=== PATIENT | female | born 1990 | race Caucasian/White ===

== ENCOUNTER 2020-02-25 13:45 | Emergency (ER) | payer OTHER, SELFPAY ==
--- NOTE | 2020-02-25 15:31 | ED.WOUNDLAC ---
HPI - Wound/Laceration General Time Seen by Provider: 02/25/20 14:30 Source: patient and RN notes reviewed Mode of arrival: ambulatory Limitations: no limitations History of Present Illness HPI narrative: This is a 30 years old female presented office for evaluation of possible foreign body in her right foot about a month ago. Stated she may have stepped on a broken glass at home however she did not have pain immediately until about 2 weeks ago. She noticed a tender spot, concern for possible glass so her an attempt to remove it at home, which was unsuccessful. Pain becomes more constant and worse with walking. Describes her pain as sore with burning sensation. Denies any other associated symptoms which include fever, abdominal pain, vomiting, swelling or redness in her foot. She is not diabetic. TD is up-to-date as of 09/2019. Related Data Allergies Allergy/AdvReac Type Severity Reaction Status Date / Time Penicillins Allergy Unknown CLOSES Verified 09/03/17 12:19 THROAT Review of Systems Review of Systems: Narrative: ROS: CONSTITUTIONAL: Denies feeling ill CARDIOVASCULAR: Denies chest pain RESPIRATORY: Denies dyspnea GASTROINTESTINAL: Denies abdominal pain, nausea, vomiting SKIN: Denies redness MUSCULOSKELETAL: Reports right foot pain NEUROLOGIC: Denies numbness, or focal weakness. PMFSH Social History Social History (Updated 02/25/20 @ 15:32 by CHAVA Mederos) Smoking status: Current every day smoker Comments At time of signature, I agree with nursing past medical, surgical, social and family history. There is no relevant family history pertinent to the presenting complaint. Exam Narrative: Exam Narrative: GENERAL: This is a well-nourished, well-developed patient, in no apparent distress. CARDIOVASCULAR: Regular rate and rhythm without murmurs, gallops, or rubs. RESPIRATORY: Clear to auscultation. Breath sounds equal bilaterally. No wheezes, rales, or rhonchi. GASTROINTESTINAL: Abdomen soft, non-tender, nondistended. Bowel sounds are active. No hepato-splenomegaly, or palpable masses. No guarding. NEURO: awake, alert, and oriented to person, place and time. There were no obvious focal neurologic abnormalities. EXTREMITIES: right plantar aspect of foot, first metatarsal noted a tender callus without erythema, edematous. Procedures Foreign Body Removal Foreign Body #1: Foreign Body Removal Date: 02/25/20 Time Out Performed: no Site: right and lower extremity Description of foreign body: other (glass) Sedation/Analgesia: none Technique: removal with forceps, incision made to facilitate removal, irrigation and other (soak her foot with peroxide and warm water) Confirmed by:: direct visualization Complications: none Post-procedure exam: awake, alert Neurovascular: normal distal pulse Foreign Body Removal Narrative: Patient reports feeling better post removal MDM - Wound/Laceration MDM Narrative Medical decision making narrative: Discharge instructions reviewed with patient, as well as provided in writing per nursing staff. The instructions also include specific and strict return/GO TO THE ER as well as f/u information. All questions have been answered, and the patient deny any further questions with discharge and discharge plan. Differential Diagnosis Differential diagnosis: Likely laceration, abscess, abrasion and avulsion of skin Critical Care Time Critical Care Time Critical Care Time: No Discharge Plan Discharge Clinical Impression: Foreign body (FB) in soft tissue Patient Disposition: Home, Self-Care Condition: Stable Instructions: Acute Wounds (ED) Additional Instructions: Keep affected area clean and dry, avoid covering it up to promote faster healing; however if you do put dressing/bandage; make sure to remove it frequently to avoid infection. Little sore on affected area post procedure is n
--- NOTE | 2020-02-25 15:44 | PC.NURSE ---
02/25/2020 1544 See Downtime Documentation. Jazzmine Sparrow RN
== END 2020-02-25 15:55 | disposition home or self-care (01) ==
PROVIDERS: Emergency Provider Nurse Practitioner
DX: S90.851A Superficial foreign body, right foot, initial encounter (principal); F17.200 Nicotine dependence, unspecified, uncomplicated; W25.XXXA Contact with sharp glass, initial encounter
CPT/HCPCS: 10120; 99213; G0463

== ENCOUNTER 2021-07-07 09:18 | Emergency (ER) | payer OTHER, SELFPAY ==
[2021-07-07 09:22] VITALS: BP 133/65; PULSE 106; RESP 18; TEMP 37.3; O2SAT 100
--- NOTE | 2021-07-07 09:55 | ED.URI ---
HPI - URI/Sore Throat General Chief Complaint: Upper Respiratory Infection Stated Complaint: sore throat ear aches headache Time Seen by Provider: 07/07/21 09:36 Source: patient and RN notes reviewed Mode of arrival: ambulatory Limitations: no limitations History of Present Illness HPI Narrative: Patient presents today complaining of left ear pain, headache x3 days with sore throat that started yesterday afternoon. Currently rates her pain 4/10 and has been taking Tylenol with mild relief. She has 2 children at home that are positive for strep throat and are taking amoxicillin. MD elicited complaint: sore throat Related Data Home Medications Medication Instructions Recorded Confirmed norethindrone ac-eth estradiol 1 tablet PO DAILY 07/07/21 07/07/21 Allergies Allergy/AdvReac Type Severity Reaction Status Date / Time Penicillins Allergy Severe Anaphylactic Verified 07/07/21 09:35 Shock Review of Systems Review of Systems: CONSTITUTIONAL: Denies body aches, fever, chills, or sweats. EYES: Denies visual changes, redness, or discharge. ENT: Denies rhinorrhea, congestion.+ Left ear pain, sore throat CARDIOVASCULAR: Denies chest pain, palpitations, or edema. RESPIRATORY: Denies cough or dyspnea. GASTROINTESTINAL: Denies abdominal pain, nausea, vomiting, or diarrhea. GENITOURINARY: Denies dysuria or hematuria. SKIN: Denies rash, itching, or wounds. MUSCULOSKELETAL: Denies back pain, joint pain, or myalgia. NEUROLOGIC: Denies numbness, tingling, or weakness.+ Headache PSYCH: Denies depression or anxiety. [facility] Social History Social History Smoking status: Current every day smoker Comments At time of signature, I have reviewed and agree with nursing past medical, surgical, social and family history unless otherwise noted. Please see nursing chart for further information. There is no relevant family history pertinent to the presenting complaint Exam Narrative: GENERAL: Well-appearing, well-nourished, and in no acute distress. HEAD: Normocephalic, atraumatic. EYES: EOMI. No redness or drainage. Conjunctivae normal. ENT: Mucous membranes pink and moist. Nares clear. No rhinorrhea. TMs normal bilaterally. Throat erythematous with mild edema. Uvula midline. NECK: Normal AROM. Supple. No lymphadenopathy. CHEST: No respiratory distress. Clear to auscultation. HEART: Regular rate and rhythm. No murmur appreciated. Normal peripheral pulses. EXTREMITIES: Normal range of motion. No edema. SKIN: Warm, dry, no rash. Capillary refill normal. Normal skin turgor. NEURO: No focal deficits. Alert and oriented x3. Gait steady. PSYCH: Normal affect. No signs of depression or anxiety. Course Vital Signs Vital signs: Vital Signs Temperature 99.1 F 07/07/21 09:22 Pulse Rate 106 H 07/07/21 09:22 Respiratory Rate 18 07/07/21 09:22 Blood Pressure 133/65 07/07/21 09:22 Pulse Oximetry 100 07/07/21 09:22 Temperature 99.1 F 07/07/21 09:22 Pulse Rate 106 H 07/07/21 09:22 Respiratory Rate 18 07/07/21 09:22 Blood Pressure 133/65 07/07/21 09:22 Pulse Oximetry 100 07/07/21 09:22 Reviewed. Pt has been instructed to follow up with her PCP regarding her elevated blood pressure today. MDM - URI/Sore Throat Differential Diagnosis Differential diagnosis: Likely upper respiratory infection, otitis media, pharyngitis and other (Strep throat) Lab Data Attestation: I reviewed the patient's lab results. Labs: Strep Screen Presumptive Negative *(Reference Range: Negative)* Critical Care Time Critical Care Time Critical Care Time: No Discharge Plan Discharge Clinical Impression: Pharyngitis Qualifiers: Pharyngitis/tonsillitis etiology: unspecified etiology Qualified Code(s): J02.9 - Acute pharyngitis, unspecified Patient Disposition: Home, Self-Care Condition: Stable
== END 2021-07-07 10:00 | disposition home or self-care (01) ==
PROVIDERS: Emergency Provider Nurse Practitioner
DX: J02.9 Acute pharyngitis, unspecified (principal); F17.200 Nicotine dependence, unspecified, uncomplicated
CPT/HCPCS: 87081; 87880; 99213; G0463

== ENCOUNTER 2022-01-12 08:51 | Emergency (ER) | payer OTHER, SELFPAY ==
--- NOTE | 2022-01-12 08:56 | ED.URI ---
HPI - URI/Sore Throat General Chief Complaint: Upper Respiratory Infection Stated Complaint: aches all over Time Seen by Provider: 01/12/22 08:56 Source: patient and RN notes reviewed History of Present Illness HPI Narrative: Patient is a 31-year-old female who presents the urgent care with complaints of bilateral ear pain that started today and body aches with subjective fever and chills that started last night. Patient denies of any ill contacts. Denies of sore throat, cough. Patient has been taking Tylenol cold and flu medication, for her symptoms. No other acute complaints. No acute distress noted. Patient aware of the plan of care. Some parts of this dictation were generated by voice recognition software and may contain typographical and/or grammatical inaccuracies. Related Data Home Medications Medication Instructions Recorded Confirmed norethindrone ac-eth estradiol 1 tablet PO DAILY 07/07/21 07/07/21 Allergies Allergy/AdvReac Type Severity Reaction Status Date / Time Penicillins Allergy Severe Anaphylactic Verified 07/07/21 09:35 Shock Review of Systems Review of Systems: CONSTITUTIONAL: Reports of subjective fever and chills EYES: Denies visual changes, redness, or discharge. ENT: Denies rhinorrhea, congestion. Reports of scratchy throat and bilateral otalgia CARDIOVASCULAR: Denies chest pain, palpitations, or edema. RESPIRATORY: Denies cough or dyspnea. GASTROINTESTINAL: Denies abdominal pain, nausea, vomiting, or diarrhea. GENITOURINARY: Denies dysuria or hematuria. SKIN: Denies rash or itching. MUSCULOSKELETAL: Denies back pain, joint pain. Reports body aches NEUROLOGIC: Denies headache, numbness, or weakness. All other systems reviewed are negative, except as documented in HPI. PMFSH Social History Social History Smoking status: Current every day smoker Comments At the time of my signature, I reviewed and agree with the nursing past medical, surgical, social, and family history. There is no relevant family history pertinent to the patient complaint. Exam Narrative: GENERAL: This is a well-nourished, well-developed patient, in no apparent distress. HEAD: normocephalic, atraumatic. EYES: PERRL. Sclera clear/white. Vision is grossly intact. EARS: External ears normal, auditory canals clear and without drainage, TMs normal without perforation. Hearing grossly intact. NOSE: External nose normal with no obvious nasal discharge, nares without redness, clear to yellow rhinorrhea. THROAT: Mucous membranes moist, mild erythema noted posterior oropharynx with moderate postnasal drainage NECK: Neck supple, non-tender without lymphadenopathy CARDIOVASCULAR: Regular rate and rhythm without murmurs, gallops, or rubs. RESPIRATORY: Clear to auscultation. Breath sounds equal bilaterally. No wheezes, rales, or rhonchi. SKIN: warm, intact with no suspicious lesions or rash, good texture and turgor. NEURO: awake, alert, and oriented to person, place and time. There were no obvious focal neurologic abnormalities. EXTREMITIES: No clubbing, cyanosis, or edema. Course Course Level of Care: Express Care Visit Vital Signs Vital signs: Vital Signs Temperature 99.7 F H 01/12/22 08:58 Pulse Rate 112 H 01/12/22 08:58 Respiratory Rate 18 01/12/22 08:58 Blood Pressure 120/66 01/12/22 08:58 Pulse Oximetry 98 01/12/22 08:58 Temperature 99.7 F H 01/12/22 08:58 Pulse Rate 112 H 01/12/22 08:58 Respiratory Rate 18 01/12/22 08:58 Blood Pressure 120/66 01/12/22 08:58 Pulse Oximetry 98 01/12/22 08:58 Reviewed MDM - URI/Sore Throat MDM Narrative Medical decision making narrative: Reviewed lab results with the patient. She is aware that flu swab was negative. Strep swab was also negative. Educated patient on culture we will call within 72 hours if culture is positive and antibiotics are necessary. Advised the patient to use Tyleno
[2022-01-12 08:58] VITALS: BP 120/66; PULSE 112; RESP 18; TEMP 37.6; O2SAT 98
== END 2022-01-12 09:37 | disposition home or self-care (01) ==
PROVIDERS: Emergency Provider Nurse Practitioner Family
DX: H92.03 Otalgia, bilateral (principal); B34.9 Viral infection, unspecified; F17.200 Nicotine dependence, unspecified, uncomplicated
CPT/HCPCS: 87081; 87804; 87880; 99213; G0463

== ENCOUNTER 2023-04-24 12:38 | Outpatient (CLI) | payer OTHER, SELFPAY ==
[2023-04-24 13:51] LABS: Beta HCG Quantitative < 2.39 mIU/ML
== END 2023-04-24 12:39 | disposition home or self-care (01) ==
PROVIDERS: Visit Provider Advanced Practice Midwife
DX: N91.2 Amenorrhea, unspecified (principal)
CPT/HCPCS: 36415; 84702

== ENCOUNTER 2023-08-28 18:03 | Emergency (ER) | payer OTHER, SELFPAY ==
--- NOTE | ~2023-08-28 | XR_ITS ---
EXAMINATION: XR finger 4th LT min 2V DATE: 08/28/2023 18:26 INDICATION: Left hand fourth digit injury and pain. TECHNIQUE: 4 views of left hand fourth digit were obtained. COMPARISON: None. FINDINGS: Bone alignment is normal. No fracture. Joint spaces are normal. IMPRESSION: 1. No fracture. Reviewed, dictated and finalized at location E. [employer] IMPRESSION: 1. No fracture.
[2023-08-28 18:15] VITALS: BP 110/74; PULSE 100; RESP 18; TEMP 36.6; O2SAT 99
--- NOTE | 2023-08-28 18:36 | ED.UPPEXIN ---
HPI - Extremity Injury (Upper) General Chief Complaint: Extremity Injury, Upper Stated Complaint: Left Finger Injury Time Seen by Provider: 08/28/23 18:25 Source: patient, RN notes reviewed and old records reviewed Mode of arrival: ambulatory Limitations: no limitations History of Present Illness HPI narrative: 33-year-old female who presents to [facility] with complaints of injury to her left ring finger on her left hand which occurred after lifting popcorn machine 2 hours ago at home. Patient reports that she was moving the popcorn machine and it started to fall and she is not sure if it caused her left ring finger to twist or hyperextend. Patient report that her whole finger is sore and increases when she tries to move her finger. Patient has taken Ibuprofen and used ice to her left ring finger. MD complaint: injury to: left and finger (ring finger) Onset (ago): hour(s) (2 hours) Handedness: right Place: home Severity scale (1-10): 8 Treatments prior to arrival: cold therapy and NSAIDS Related Data Home Medications Medication Instructions Recorded Confirmed norethindrone 1 mg-ethinyl See Rx Instructions .Route .COMPLEX 08/28/23 08/28/23 estradiol 20 mcg (24)-iron 75 mg (4) tablet (Ria 24 Fe) sertraline 25 mg tablet 25 mg PO DAILY 08/28/23 08/28/23 Allergies Allergy/AdvReac Type Severity Reaction Status Date / Time Penicillins Allergy Severe Anaphylactic Verified 08/28/23 18:32 Shock Review of Systems Review of Systems: CONSTITUTIONAL: Denies fever, chills, or sweats. EYES: Denies visual changes, redness, or discharge. ENT: Denies rhinorrhea, congestion, sore throat, or otalgia. CARDIOVASCULAR: Denies chest pain, palpitations, or edema. RESPIRATORY: Denies cough or dyspnea. GASTROINTESTINAL: Denies abdominal pain, nausea, vomiting, or diarrhea. GENITOURINARY: Denies dysuria or hematuria. SKIN: Denies rash or itching. MUSCULOSKELETAL: Denies back pain, positive for pain to left ring finger, or myalgia. NEUROLOGIC: Denies headache, numbness, or weakness. PSYCHIATRIC: Denies anxiety or depression. All systems reviewed & are unremarkable except as noted in HPI and below PMFSH Past Medical History Medical History (Updated 08/30/23 @ 20:22 by Anita Chandler NP) Depression Surgical History Surgical History (Updated 08/30/23 @ 20:18 by Anita Chandler NP) History of cholecystectomy Social History Social History Smoking status: Current every day smoker Comments At time of signature, agree with nursing past medical, surgical, social and family history. There is no relevant family history pertinent to the presenting complaint Exam Narrative: GENERAL: Well-appearing, well-nourished, and in no acute distress. HEAD: Normocephalic, atraumatic. EYES: PERRLA and EOMI. ENT: Nares clear, no rhinorrhea or epistaxis. Mucous membranes moist. NECK: Supple. no lymphadenopathy CHEST: Clear to auscultation. No respiratory distress.SAO2 99% on room air HEART: Regular rate and rhythm. No murmur heard. Normal peripheral pulses. ABDOMEN: Soft, nontender, nondistended, normal active bowel sounds. EXTREMITIES: Normal range of motion. No edema.Exception noted to left ring finger which has some noted swelling and patient states some tingling, she is able to move finger on own power, nail bed has brisk capillary refill, left radial pulse strong. SKIN: Warm, dry, no rash. NEURO: No focal deficits. Alert and oriented x3. patient Course Course Emergency Course: Patient is aware of diagnosis, understands and agrees to treatment plan.? Anticipatory guidance given.? Patient agrees to follow-up as directed and is aware of reasons to seek care at the emergency department. Portions of this record may have been created with voice recognition software Level of Care: Express Care Visit Vital Signs Vital signs: Vital Signs Temperature 36.6 C
== END 2023-08-28 18:50 | disposition home or self-care (01) ==
PROVIDERS: Emergency Provider Registered Nurse
DX: S60.042A Contusion of left ring finger without damage to nail, initial encounter (principal); X58.XXXA Exposure to other specified factors, initial encounter; F32.A Depression, unspecified
CPT/HCPCS: 73140; 99213; G0463

== ENCOUNTER 2025-02-18 08:18 | Emergency (ER) | payer OTHER, SELFPAY ==
--- NOTE | ~2025-02-18 | XR_ITS ---
EXAMINATION: XR finger 2nd LT min 2V DATE: 02/18/2025 08:59 INDICATION: Left finger pain post injury 2 days prior TECHNIQUE: Dorsal palmar, lateral and 2 oblique views of the left second digit were obtained COMPARISON: None FINDINGS: Alignment is normal. No fracture. Joint spaces are normal. Soft tissues are unremarkable. IMPRESSION: 1. Negative left second digit radiographs. Reviewed, dictated and finalized at location B.
--- OUTSIDE RECORDS SUMMARY | 2025-02-18 08:22 | XMS_ITS | Clinical Summary ---
Author Organization [facility] Address [address] [place] [address] Care Team Providers Care Home Staging Specialist Name Role Phone Tati Henry NP Primary Care Provider [phone] Allergies Active Allergy Reactions Criticality Noted Date Comments Penicillins Anaphylaxis High 02/22/2019 Valacyclovir Rash Medium 11/06/2023 Medications busPIRone (BUSPAR) 10 mg tabletIndications: Generalized Anxiety Disorder Take 1 tablet (10 mg total) by mouth 3 (three) times a day as needed (anxiety) 4 Active fluticasone propionate (FLONASE) 50 mcg/actuation nasal sprayIndications:E nvironmental and seasonal allergies Administer 2 sprays into each nostril daily as needed for allergies 1 each 2 4 Active Aurovela 24 Fe 1 mg-20 mcg (24)/75 mg (4) per tabletIndications: cyst ovary Take 1 tablet by mouth nightly 4 Active ergocalciferol (VITAMIN D) 50,000 unit capsuleIndications :Vitamin D deficiency Take 1 capsule (50,000 Units total) by mouth once a week 12 capsule 4 4 025 Active sertraline (ZOLOFT) 25 mg tabletIndications: depression Take 1 tablet (25 mg total) by mouth nightly 90 tablet 1 4 025 Active albuterol HFA (PROVENTIL HFA,VENTOLIN HFA,PROAIR HFA) 90 mcg/actuation inhalerIndications :Bronchitis,Lower respiratory infection Inhale 2 puffs every 6 (six) hours as needed for wheezing for up to 7 days 1 each 5 Active rOPINIRole (REQUIP) 0.5 mg tabletIndications: Restless Legs Syndrome Take 1 tablet (0.5 mg total) by mouth nightly as needed (foot pain at night) 90 tablet [address] (CYMBALTA) 60 mg capsuleIndications :Neuropathy Take 1 capsule (60 mg total) by mouth daily 90 capsule 4 5 026 Active tiZANidine (ZANAFLEX) 4 mg tablet TAKE 1 TABLET(4 MG) BY MOUTH EVERY 8 HOURS NEEDED FOR MUSCLE SPASMS 30 tablet 3 5 Active pregabalin (LYRICA) 50 mg capsuleIndications :Neuropathy Take 1 capsule (50 mg total) by mouth 3 (three) times a day 270 capsule 4 5 025 Active meloxicam (MOBIC) 15 mg tabletIndications: Osteoarthritis Take 1 tablet (15 mg total) by mouth daily 30 tablet 5 Active ondansetron ODT (ZOFRAN-ODT) 4 mg disintegrating tabletIndications: Viral syndrome Take 1 tablet (4 mg total) by mouth every 8 (eight) hours as needed for nausea or vomiting 9 tablet 5 Active Hospital, Clinic, or Other Facility Administered Medication Ordered Dose Route Frequency Start Date End Date Status ondansetron ODT (ZOFRAN-ODT) disintegrating tablet 4 mgIndications:Viral syndrome 4 mg oral Once 01/21/2025 01/21/2025 Ended Active Problems Problem Noted Date Diagnosed Date Cervical radiculopathy 01/28/2025 Diabetes mellitus screening 12/15/2024 Assessment & Plan (12/15/2024 1:19 PM TRAVELING PLANT OPERATOR): A1C ordered due to excessive thrist, fatigue, and potential neuropathy in feet. Will continue to monitor. Fatigue 12/15/2024 Assessment & Plan (12/15/2024 1:23 PM TRAVELING PLANT OPERATOR): Vitamin B 12 and D along with Iron profile ordered as well. Will continue to monitor. Screening for lipid disorders 12/15/2024 Assessment & Plan (12/15/2024 1:20 PM TRAVELING PLANT OPERATOR): Lipid panel ordered. Will continue to monitor. Bilateral leg and foot pain 12/15/2024 Assessment & Plan (12/15/2024 1:23 PM TRAVELING PLANT OPERATOR): Will trial Requip and Medrol dose pack. Differentials include diabetes with neuropathy, polyneuropathy, plantar fasciitis, or other causes of lower leg and feet swelling. Vitamin D deficiency 12/15/2024 Assessment & Plan (12/15/2024 1:23 PM TRAVELING PLANT OPERATOR): Feel supplement not working anymore still having fatigue. Will check levels. Class 1 obesity due to exces s calories without serious comorbidity with body mass index (BMI) of 30.0 to 30.9 in adult 12/15/2024 Assessment & Plan (12/15/2024 1:23 PM TRAVELING PLANT OPERATOR): Encouraged heart healthy diet and lifestyle. Advised 150 min/week of aerobic exercise. Cervical spondylosis without myelopathy 11/04/19 Encounter for physical examination related to em ployment 08/31/2024 Influenza vaccine needed 08/31/2024 Spondylosis of cervical jesús on without myelopathy or radiculopathy 08/03/2024 Injury of neck 06/03/2024 Assessment & Plan (06/03/2024 3:12 PM CDT): Son jumped on head 7 days ago; 2 days ago turned to get cup off table and felt/heard pop . 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 Post herpetic neuralgia 02/17/2024 Assessment & Plan (02/17/2024 3:23 PM CDT): Stable, well controlled Gabapentin 100 mg TID Cigarette nicotine dependence without complicati on 02/17/2024 Assessment & Plan (02/17/2024 3:23 PM CDT): Restart Nicotine patches Was successful for 4 days Cubital tunnel syndrome on right 01/22/2024 Right carpal tunnel syndrome 01/22/2024 Guyon syndrome, right 01/22/2024 Sensorineural hearing loss (SNHL) of both ears 0 12/18/2023 Assessment & Plan (12/18/2023 11:41 AM TRAVELING PLANT OPERATOR): Hearing test Continue to work with Dentist Nasal saline spray (Simply saline, [place], [place], [place]) 2 second sprays or 2 squeezes into each nostril while looking down over the sink, do not need to sniff in 2-3 times Flonase 2 sprays into each nostril while looking down over the sink, do not sniff in or blow nose after use for at least 30 minutes daily Referred otalgia of both ears 12/18/2023 Assessment & Plan (12/18/2023 11:41 AM TRAVELING PLANT OPERATOR): Hearing test Continue to work with Dentist Nasal saline spray (Simply saline, [place], [place], [place]) 2 second sprays or 2 squeezes into each nostril while looking down over the sink, do not need to sniff in 2-3 times Flonase 2 sprays into each nostril while looking down over the sink, do not sniff in or blow nose after use for at least 30 minutes daily Hair loss 11/06/2023 Assessment & Plan (11/06/2023 9:23 AM TRAVELING PLANT OPERATOR): Check TSH Numbness and tingling of both upper extremities 11/06/2023 Assessment & Plan (11/20/2023 5:14 PM TRAVELING PLANT OPERATOR): Not well controlled, continues to have numbness, worse in right arm; mostly occurs at elbow, ulnar distribution; including middle finger Waiting to get EMG for source of symptoms Assessment & Plan (11/06/2023 9:23 AM TRAVELING PLANT OPERATOR): Had EMG in December 2022; has not gotten results yet States pain has worsened Repeat EMG ordered Inflammation of left eye 10/22/2023 Assessment & Plan (10/31/2023 11:00 AM TRAVELING PLANT OPERATOR): H/o shingles per chart with likely V2 involvement, rash resolved after about 1 week of valacyclovir, but patient developed rashes on her trunk so discontinued due to concern for allergy. Patient was also started on prednisolone tid OS for mild AC reaction. Today no inflammation or sequelae of HZO on exam. Patient is still symptomatic for eye and facial pain as well as subjectively decreased vision OS. Diagnostic refraction corrects to 20/40 OS and OCT macula was normal today- unclear etiology for decreased vision but no concerns from an ocular health perspective. Patient's symptoms could represent post herpetic neuralgia. Will send note to PCP, may consider gabapentin trial or other treatment options. Otherwise decrease prednisolone to bid x 1 week, qd x 1 week, then stop. Can follow up locally for continued eyecare or can return to our clinic with any new or worsening symptoms. Gastroesophageal reflux disease without esophagi tis 08/27/2023 Irritable bowel syndrome with constipation 08/27 Assessment & Plan (08/27/2023 11:33 AM TRAVELING PLANT OPERATOR): Referral to [facility] placed Chronic bilateral low back pain with bilateral s ciatica 08/27/2023 Assessment & Plan (11/06/2023 9:26 AM TRAVELING PLANT OPERATOR): Increase Meloxicam 15 mg daily Not getting relief with PT Assessment & Plan (09/25/2023 11:12 AM TRAVELING PLANT OPERATOR): Continued back pain; started PT yesterday Start Meloxicam 7.5 mg daily and Skelaxin 400 mg BID PRN Assessment & Plan (08/27/2023 11:33 AM TRAVELING PLANT OPERATOR): Patient states she had a previous back injury; states she believes her toddler through her back out recently. She was seen in beginning of July and was prescribed steroids and Flexeril. She states that the pain is still there and it causes sciatica X-ray ordered; discussed potential need for MRI and/or neurosurgery consult Cervical spine pain 08/27/2023 Assessment & Plan (11/20/2023 5:13 PM TRAVELING PLANT OPERATOR): Continues to have spine and thoracic back pain; thoracic back pain may be pustule; patient given home exercises to help improve posture Continue meloxicam 15 mg daily, gabapentin 100 mg t.i.d.; transition from Skelaxin to methocarbamol 500 mg q.i.d. p.r.n. Assessment & Plan (08/27/2023 11:32 AM TRAVELING PLANT OPERATOR): Patient states she is had a history of cervical spine pain that causes numbness X-ray ordered; discussed potential need for MRI and/or neurosurgery consult Bowel and bladder incontinence 08/27/2023 Assessment & Plan (08/27/2023 11:30 AM TRAVELING PLANT OPERATOR): Patient states due to her history of anal fissure she has been having bowel incontinence. She also has a history of IBS-C Referral to [facility] gastrointestinal clinic Anxiety and depression 08/27/2023 Assessment & Plan (02/17/2024 3:22 PM CDT): Chronic, stable, well controlled Continue Sertraline 25 mg daily and BuSpar 10 mg TID PRN Assessment & Plan (11/06/2023 9:27 AM TRAVELING PLANT OPERATOR): Stable, generally well controlled Continue Zoloft 25 mg daily Increase BuSpar 10 mg TID PRN Follow up 2 months Assessment & Plan (09/25/2023 11:13 AM TRAVELING PLANT OPERATOR): Stable; depression well controlled, increased anxiety Continue Zoloft 25 mg daily; add BuSpar 5 mg TID PRN Follow up 4 weeks Assessment & Plan (08/27/2023 11:29 AM TRAVELING PLANT OPERATOR): Patient states she is had a history of anxiety and depression since she was a child. She states that it got worse after her children. Restart Zoloft 25 mg daily Follow up 1 month, sooner if needed Internal hemorrhoid 11/14/2022 Anal fissure 10/25/2022 Resolved Problems Problem Noted Date Diagnosed Date Resolved Date RUQ pain 11/14/2022 08/27/2023 Overview (11/14/2022): Added automatically from request for surgery [id number] Heartburn 11/14/2022 08/27/2023 Overview (11/14/2022): Added automatically from request for surgery [id number] Weight loss 11/14/2022 08/27/2023 Overview (11/14/2022): Added automatically from request for surgery [id number] Abdominal bloating 11/14/2022 Overview (11/14/2022): Added automatically from request for surgery [id number] Rectal pain 10/25/2022 08/27/2023 Overview (10/25/2022): Added automatically from request for surgery [id number] Rectal bleeding 10/25/2022 08/27/2023 Overview (10/25/2022): Added automatically from request for surgery [id number] Encounters Date Type Department Care Team Description 02/02/2025 Telephone [facility] [address] [place] [employer] [address] Amber Barajas NP 01/28/2025 8:36 AM CDT - 01/28/2025 11:59 PM CDT Hospital Encounter [facility] [address] [facility] [address] [place] [phone] Jimy Pantoja MD Cervical radiculopathy Discharge Disposition: Discharge to home or self care 01/28/2025 Orders Only [facility] [address] [facility] [address] [place] [address] Jimy Pantoja MD Spondylosis of cervical region without myelopathy or radiculopathy (Primary Dx); Cervical spondylosis without myelopathy; Chronic neck pain; Cervical radiculopathy 01/27/2025 Orders Only [facility] [address] [place] [phone] Jimy Pantoja MD Cervical radiculopathy (Primary Dx) 01/26/2025 Telephone [facility] [address] [phone] Tati Henry NP Medical Question/Miscellaneou s 01/25/2025 Telephone [facility] [address] [place] [phone] Jimy Pantoja MD [facility] Preprocedure 01/23/2025 Results Follow-Up [facility] at [address] [place] [address] Meli Stanford NP 01/21/2025 2:54 PM CDT - 01/21/2025 11:59 PM CDT Hospital Encounter [address] [address] Viral syndrome Discharge Disposition: Discharge to home or self care 01/21/2025 2:30 PM CDT Office Visit [facility] [address] [place] [address] Ashely Poole NP Viral syndrome (Primary Dx) 01/14/2025 Results Follow-[facility] [address] [phone] Amber Barajas NP Pain in left foot (Primary Dx); Bilateral leg and foot pain 01/11/2025 12:56 PM CDT - 01/11/2025 11:59 PM CDT Hospital Encounter [facility] [address] [place] [address] Jimy Pantoja MD Cervical radiculopathy (Primary Dx) Discharge Disposition: Discharge to home or self care 01/08/2025 12:36 PM CDT - 01/08/2025 11:59 PM CDT Hospital Encounter [facility] [address] [place] [phone] Pain in left foot Discharge Disposition: Discharge to home or self care 01/08/2025 Results Follow-[facility] [address] [phone] Amber Barajas NP 01/07/2025 12:10 PM CDT Lab [facility] [address] [place] [phone] Multiple joint pain 01/05/2025 5:30 PM CDT Office Visit [facility] Medical [facility] at [address] [phone] Brenda Jones NP Bilateral leg and foot pain (Primary Dx) 12/16/2024 Results Follow-Up [facility] [address] [phone] Amber Barajas NP 12/15/2024 1:30 PM TRAVELING PLANT OPERATOR Lab [address] [phone] Diabetes mellitus screening; Fatigue, unspecified type; Screening for lipid disorders; Vitamin D deficiency 12/15/2024 1:00 PM TRAVELING PLANT OPERATOR Office Visit [facility] [address] [phone] Amber Barajas NP Bilateral leg and foot pain (Primary Dx); Vitamin D deficiency; Fatigue, unspecified type; Diabetes mellitus screening; Screening for lipid disorders; Class 1 obesity due to excess calories without serious comorbidity with body mass index (BMI) of 30.0 to 30.9 in adult 11/25/2024 12:20 PM TRAVELING PLANT OPERATOR - 11/25/2024 11:59 PM TRAVELING PLANT OPERATOR Hospital Encounter [facility] [address] [place] [address], [place] [address] Subacute cough Discharge Disposition: Discharge to home or self care 11/25/2024 Telephone [facility] Medical [facility] at [address] [place] [address] Genesis Salas MA 11/24/2024 6:15 PM TRAVELING PLANT OPERATOR Office Visit [facility] at [address] [place] [address] Brenda Jones, MELANIA Acute serous otitis media of left ear, recurrence not specified (Primary Dx); Subacute cough 11/22/2024 6:45 PM TRAVELING PLANT OPERATOR Office Visit [facility] at [address] [place] [address] Gerda Bean, MELANIA Viral URI with cough (Primary Dx) from Last 3 Months Immunizations Immunization Administration Dates Next Due Influenza, Quadrivalent, Spl it, Preservative Free, Intramuscular 10/10/2019(Deferred: Patient Refused) Influenza, Trivalent, Preser vative Free, Intramuscular 08/31/2024 Influenza, Unspecified 08/28/2024(Deferr ed: Patient Refused),08/05/2024(Deferred: Patient Refused),07/30/2023(Deferred: Patient Refused),07/29/2023(Deferred: Patient Refused),07/21/2023(Deferred: Patient Refused),06/21/2023(Deferred: Patient Refused),07/21/2022(Deferred: Patient Refused) PPD TEST 12/19/2020 Tdap 09/22/2019 Surgical History Surgery Date Site/Laterality Comments CHOLECYSTECTOMY 10/21/2012 - 10/20/2013 [facility] UPPER GASTROINTESTINAL ENDOSCOPY COLONOSCOPY 03/21/2022 - 04/19/2022 at [facility] CARPAL TUNNEL RELEASE 01/27/2024 Right ulnar nerve, guyons canal CARPAL TUNNEL RELEASE Left ULNAR TUNNEL RELEASE Bilateral ANAL FISSURECTOMY Medical History Medical History Date Comments No pertinent past medical history Stones common duct GERD (gastroesophageal reflux disease) 08/04/22 Chronic constipation Irritable bowel syndrome Status post anal fissurectomy Family History Medical History Relation Name Comments No Known Problems Father No Known Problems Mother Relation Name Status Comments Father Alive Mother Alive Social History Tobacco Use Types Packs/Day Years Used Date Smoking Tobacco: Former Cigarettes Smokeless Tobacco: Never Tobacco Cessation:Counseling Given: Not Answered Comments:Smoked half a pack of cigarettes per day from 2009 until 12/14 Passive Exposure Comments:not in 24 hr Alcohol Use Standard Drinks/Week Comments Not Currently 0 (1 standard drink = 0.6 oz pur e alcohol) [facility] Utilities Answer Date Recorded In the past 12 months has th e electric, gas, oil, or water company threatened to shut off services in your home? No 08/27/2023 Humiliation, Afraid, Rape, and Kick questionnair e Answer Date Recorded Within the last year, have y ou been afraid of your partner or ex-partner? No 08/27/2023 Within the last year, have y ou been humiliated or emotionally abused in other ways by your partner or ex-partner? No Within the last year, have y ou been kicked, hit, slapped, or otherwise physically hurt by your partner or ex-partner? No 08/27/2023 Within the last year, have y ou been raped or forced to have any kind of sexual activity by your partner or ex-partner? No 08/27/2023 Social Connection and Isolat ion Panel [NHANES] Answer Date Recorded In a typical week, how many times do you talk on the phone with family, friends, or neighbors? More than three times a week 08/27/2023 How often do you get togethe r with friends or relatives? Once a week 08/27/2023 How often do you attend chur or advent services? Never 08/27/2023 Do you belong to any clubs o r organizations such as mormon groups, unions, fraternal or athletic groups, or school groups? No 08/27/2023 How often do you attend meet ings of the clubs or organizations you belong to? Never 08/27/2023 Are you , , di vorced, , never , or living with a partner? 08/27/2023 AUDIT-C Answer Date Recorded Q1: How often do you have a drink containing alcohol? Never 01/28/2025 Q2: How many drinks containi ng alcohol do you have on a typical day when you are drinking? Patient does not drink Q3: How often do you have si x or more drinks on one occasion? Never 01/28/2025 Overall Financial Resource Strain (CARDIA) Answe r Date Recorded How hard is it for you to pa y for the very basics like food, housing, medical care, and heating? Not hard at all 08/27/2023 PHQ-2 Answer Date Recorded PHQ-2 Total Score (If total score is 3 or more points, staff should administer the PHQ-9) 0 12/15/2024 [facility] - Occupational Stress Questionnaire Answer Date Recorded Do you feel stress - tense, restless, nervous, or anxious, or unable to sleep at night because your mind is troubled all the time - these days? Very much 08/27/2023 Exercise Vital Sign Answer Date Recorde d On average, how many days pe r week do you engage in moderate to strenuous exercise (like a brisk walk)? 7 days 08/27/2023 On average, how many minutes do you engage in exercise at this level? 30 min 08/27/2023 Hunger Vital Sign Answer Date Recorded Within the past 12 months, y ou worried that your food would run out before you got the money to buy more. Never true 09/16/20 24 Within the past 12 months, t he food you bought just didn't last and you didn't have money to get more. Never true 09/16/2024 PRAPARE - Transportation Answer Date Re corded In the past 12 months, has l ack of transportation kept you from medical appointments or from getting medications? No 04/2023 In the past 12 months, has l ack of transportation kept you from meetings, work, or from getting things needed for daily living? No 08/27/2023 Housing Stability Vital Sign Answer Chip e Recorded In the last 12 months, was t here a time when you were not able to pay the mortgage or rent on time? No 08/27/2023 In the last 12 months, how many places have you lived? 1 08/27/2023 In the last 12 months, was t here a time when you did not have a steady place to sleep or slept in a custodial (including now)? No 08/27/2023 Personal Safety Answer Date Recorded Have you ever been in or are you currently in a harmful physical or emotional relationship or is someone making you feel afraid or unsafe? Denies 08/05/2024 Comments No Sex and Gender Information Value Date Recorded Sex Assigned at Not on file Legal Sex Female 8:01 AM TRAVELING PLANT OPERATOR Gender Identity Not on file Sexual Orientation Not on file Obstetrics History Para Term AB IAB SAB Ectopic Multiple Livin g Live Births 2 2 1 1 0 1 1 Date Outcome GA Total Labor Labor/2nd/3rd Weight Sex Type Anes PTL Leisa A1 A5 Name Clin 2012 Term Vag-S pont 2018 36w 6d 3h 37m 3h 14m/0h 19m/0h 04m 2.869 kg (6 lb 5.2 oz) M Vag-S pont Epidur al N Livin g 9 9 [address] GERDA Sosa , Colleen Pulliam MD Complications:None Delivery Location:This [facility] Last Filed Vital Signs Vital Sign Reading Time Taken Comments Blood Pressure 121/72 01/28/2025 10:17 AM CDT Pulse 63 01/28/2025 10:17 AM CDT Temperature 36.5 C (97.7 F) 01/28/2025 8:39 AM CDT Respiratory Rate 16 01/28/2025 10:17 AM CDT Oxygen Saturation 100% 01/28/2025 10:17 AM CDT Inhaled Oxygen Concentration - - Weight 69.6 kg (153 lb 8 oz) 01/28/2025 8:39 AM CDT Height 152.4 cm (5') 01/28/2025 8:39 AM CDT Body Mass Index 29.98 01/28/2025 8:39 AM CDT Plan of Treatment Health Maintenance Due Date Last Done Comments Cervical Cancer Screening 1992 Varicella Vaccines (1 of 2 - 13+ 2-dose series) 2005 Covid-19 Vaccine ( season) 2024 08/10/2021, 07/04/2021 Regular Well Visit/Exam 18-64 08/27/2024 08/27/2023 Depression Screening 12/15/2025 12/15/2024, 08/31/2024, 06/03/2024, Additional history exists DTaP/Tdap/Td Vaccine (2 - Td or Tdap) 09/22/2029 09/22/2019 Hepatitis B Screening Completed 07/13/2024 Hepatitis C Screening Completed 07/13/2024 Influenza Vaccine Completed 08/31/2024 HPV Vaccines Aged Out No longer eligi ble based on patient's age to complete this topic Pneumococcal vaccine <65 Aged Out No longer eligible based on patient's age to complete this topic Goals Goal Patient Goal Type Associated Problems Recent Progress Patient-Stated? Author CCM Chronic Pain Care Plan Chronic Care Management On track(2024 8:49 AM CDT) No Amber Webb RN Note: Problem: Chronic Pain Goals: 1. Minimize further functional decline 2. Maximize quality of life 3. Control pain Strategies: - Activity/exercise program recommendation - Conservative stepwise pain medicine strategy with multi-disciplinary approach - Recommend healthy lifestyle strategies and compensatory methods as needed Procedures Procedure Name Priority Date/Time Associated Diagnosis Comments PAIN MGMT IMAGING CERVICAL/THORACIC EPIDURAL STEROID INJ Schedule Routine, Read Routine (OP Routine) 01/28/2025 10:13 AM CDT Cervical radiculopathy THROAT CULTURE Routine 01/21/2025 5:41 PM CDT Viral syndrome POC INFLUENZA A/B, COVID-19 ANTIGEN Routine 01/21/2025 2:43 PM CDT Viral syndrome POCT RAPID STREP Routine 01/21/2025 2:43 PM CDT Viral syndrome XR FOOT LEFT 3 OR MORE VIEWS Schedule Routine, Read Routine (OP Routine) 01/08/2025 12:48 PM CDT Pain in left foot RHEUMATOID FACTOR Routine 01/07/2025 12:08 PM CDT Multiple joint pain CRP (ACUTE PHASE) Routine 01/07/2025 12:08 PM CDT Multiple joint pain ERYTHROCYTE SEDIMENTATION RATE Routine 01/07/2025 12:08 PM CDT Multiple joint pain XIANG QUALITATIVE WITH REFLEX TO XIANG QUANTITATIVE Routine 01/07/2025 12:08 PM CDT Multiple joint pain EGFR Routine 12/15/2024 1:21 PM TRAVELING PLANT OPERATOR Diabetes mellitus screening IRON PROFILE W/ IBC Routine 12/15/2024 1 :21 PM TRAVELING PLANT OPERATOR Fatigue, unspecified type VITAMIN D 25 HYDROXY Routine 12/15/2024 1:21 PM TRAVELING PLANT OPERATOR Vitamin D deficiency COMPREHENSIVE METABOLIC PANEL Routine 12/15/2024 1:21 PM TRAVELING PLANT OPERATOR Diabetes mellitus screening LIPID PANEL Routine 12/15/2024 1:21 PM TRAVELING PLANT OPERATOR Screening for lipid disorders VITAMIN B12 Routine 12/15/2024 1:21 PM TRAVELING PLANT OPERATOR Fatigue, unspecified type HEMOGLOBIN A1C Routine 12/15/2024 1:21 PM TRAVELING PLANT OPERATOR Diabetes mellitus screening XR CHEST PA LATERAL 2 VIEWS Schedule PARAM, Read PARAM (Appt Today, Awaiting Results) 11/25/2024 12:28 PM TRAVELING PLANT OPERATOR Subacute cough POC INFLUENZA A/B, COVID-19 ANTIGEN Routine 11/22/2024 7:15 PM TRAVELING PLANT OPERATOR Viral URI with cough HEPATITIS C ANTIBODY Routine 07/13/2024 12:21 PM CDT Encounter for hepatitis C screening test for low risk patient from Last 3 Months or Most Recently Relevant to Health Maintenance Results * Imaging Cervical/Thoracic Epidural Steroid INJ ([id number]) (01/28/2025 10:13 AM CDT) Narrative [facility] - 01/28/2025 10:13 AM CDT The images from this study are not interpreted by Radiology. Please refer to the physician's procedure / OR operative note. us Jimy Addison MD IMG PAIN MGMT PROCEDU RES Final Result [facility] * Throat culture Throat (01/21/2025 5:41 PM CDT) Report Final Report: No growth of pathogens. Comment:Testing performed by : [facility], [address] [place]., [address] Throat 01/21/2025 5:41 PM CDT 01/22/2025 6:01 AM CDT Narrative [facility] - 01/23/2025 1:58 PM CDT Testing performed by [facility] ([phone]). Ashely Poole ACCOUNTANT BOOKKEEPER LAB MICROBIOLOGY - GENERAL ORD ERABLES Final Result [facility] [id number] Department [place] [address] * POC Influenza A/B, COVID-19 antigen (01/21/2025 2:43 PM CDT) Pathologist [facility] Influenza A Ag, POC Negative Negative [facility] Influenza B Ag, POC Negative Negative [facility] COVID-19 Ag POC Presumptive Negative Presumptive Negative, Invalid [facility] [place] Nasal 01/21/2025 2:43 PM CDT Ashely Poole ACCOUNTANT BOOKKEEPER POINT OF CARE TEST ORDERABLES Final Result [facility] [address] [place] [address] * POCT rapid strep A (01/21/2025 2:43 PM CDT) Rapid Strep A, POC Negative Negative Swab 01/21/2025 2:43 PM CDT us Ashely Poole ACCOUNTANT BOOKKEEPER POINT OF CARE TEST ORDERABLES Final Result * XR Foot Left 3+ Vw (01/08/2025 12:48 PM CDT) Anatomical Region Laterality Modality Lower Extremities, Foot Left Computed Radiography 01/13/2025 3:43 PM CDT Narrative 01/13/2025 3:46 PM CDT EXAM DESCRIPTION: XR FOOT LEFT 3 OR MORE VIEWS REASON FOR STUDY: Pain in Foot, Left Per pt, left foot nerve problems x 1 month Last night, severe pain shooting in 1st digit. Cannot bear weight on 1st digit No prior fx or surgeries FINDINGS: Three views nonweightbearing submitted without comparison. No acute fracture. Accessory navicular is present. Achilles enthesophyte is present. The joint spaces are normal. IMPRESSION: Normal left foot evaluation. If persistent clinical concern for an occult fracture or soft tissue pathology, further evaluation with MRI may be considered. THIS IS AN ELECTRONICALLY VERIFIED FINAL REPORT 01/13/2025 3:46 PM - Electronically signed by John Miranda M.D. MF: [email or web address] Report ID: [id number] Reading Location: [id number] Procedure Note John Miranda MD - 01/13/2025 EXAM DESCRIPTION: XR FOOT LEFT 3 OR MORE VIEWS REASON FOR STUDY: Pain in Foot, Left Per pt, left foot nerve problems x 1 month Last night, severe painshooting in 1st digit. Cannot bear weight on 1st digit No prior fx or surgeries FINDINGS: Three views nonweightbearing submitted without comparison. No acute fracture. Accessory navicular is present. Achilles enthesophyteis present. The joint spaces are normal. IMPRESSION: Normal left foot evaluation. If persistent clinical concern for anoccult fracture or soft tissue pathology, further evaluation with MRI may be considered. THIS IS AN ELECTRONICALLY VERIFIED FINAL REPORT 01/13/2025 3:46 PM - Electronically signed by John Miranda M.D. MF: [email or web address] Report ID: [id number] Reading Location: [id number] us Amber Barajas NP IMG XR PROCEDURES Final Resul t * XIANG ab ql w/rflx to XIANG qn (01/07/2025 12:08 PM CDT) XIANG Negative Comment: Interpretive Data Normal range for XIANG Qualitative Antibody = Negative. 1. XIANG is performed using indirect immunofluorescence against HEp-2 cells 2. XIANG titers are performed on all positive qualitative results. 3. A significantly positive XIANG result is defined as a positive nuclear fluorescence at a titer of 1:80 or greater. 4. 15% of normal people above age 65 have significantly positive XIANG results. 5% or less of normal people age 65 or under have significantly positive XIANG results. Current interpretive data was last revised on 2020. Testing performed by: [facility], [address] [place] [address]., [id number] Blood 01/07/2025 12:0 8 PM CDT 01/07/2025 7:52 PM CDT Amber Barajas ACCOUNTANT BOOKKEEPER LAB BLOOD ORDERABLES Final Re sult Performing Organization Address City/[facility]/ZIP Co de Phone Number [facility] ([facility] [place]) [address] [place] [address] [place] [address] * Erythrocyte sedimentation rate (01/07/2025 12:08 PM CDT) Pathologist [facility] Erythrocyte sedimentation rate 9 1 - 20 mm/hr Comment:Testing performed by : [facility], [address] [place] [address], [id number] Blood 01/07/2025 12:0 8 PM CDT 01/07/2025 5:42 PM CDT Amber Barajas ACCOUNTANT BOOKKEEPER LAB BLOOD ORDERABLES Final Re sult [facility] ([place] [place]) 1 [facility] [place] [address] * Rheumatoid factor (01/07/2025 12:08 PM CDT) Pathologist [facility] Rheumatoid factor, quant 10 <=15 IUnits/mL Comment:Testing performed by : [address], [id number] Blood 01/07/2025 12:0 8 PM CDT 01/07/2025 5:42 PM CDT Amber Barajas NP LAB BLOOD ORDERABLES Final Re sult [facility] ([place]) 1 [facility] Department [place] [address] * (ABNORMAL) CRP (acute phase) (01/07/2025 12:08 PM CDT) CRP 18.3(H) <=10.0 mg/L Comment:Testing performed by : [facility], [address] [place] [address]., [id number] Blood 01/07/2025 12:0 8 PM CDT 01/07/2025 5:42 PM CDT Amber Barajas NP LAB BLOOD ORDERABLES Final Re sult [facility] ([place] [place]) 1 [facility] [place] [address] * eGFR (12/15/2024 1:21 PM TRAVELING PLANT OPERATOR) eGFR >90 >=60 mL/min/1. 73 m2 Comment: Interpretive Data Reference Interval Normal >/= 90 mL/min/1.73m2 Mildly decreased* 60 - 89 mL/min/1.73m2 Mildly to moderately decreased 45 - 59 mL/min/1.73m2 Moderately to severely decreased 30 - 44 mL/min/1.73m2 Severely decreased 15 - 29 mL/min/1.73m2 Kidney Failure < 15 mL/min/1.73m2 *Relative to young adult level Estimated glomerular filtration rate is determined by the 2020 CKD-EPI equation recommended by the National Kidney Foundation (A Unifying Approach to GFR Estimation: Recommendations of the NKF-ASK Task Force on Reassessing the Inclusion of Race in Diagnosing Kidney Disease, JASN 2020). The CKD-EPI equation should not be used for patients with unstable renal function and has not been validated in children and those over 70. Current interpretive data was last reviewed 2021. Testing performed by: [facility], [address] [place] [address], [id number] Blood 12/15/2024 1:21 PM TRAVELING PLANT OPERATOR 12/15/2024 7:32 PM TRAVELING PLANT OPERATOR Amber Barajas ACCOUNTANT BOOKKEEPER LAB BLOOD ORDERABLES Final Re sult Performing Organization Address City/[facility]/ZIP Co de Phone Number BEK[facility] ([facility] [place]) 1 [facility] Department [place] [address] * (ABNORMAL) Iron profile w/ IBC (12/15/2024 1:21 PM TRAVELING PLANT OPERATOR) Pathologist [facility] Iron 55 35 - 145 mcg/dl Comment:Testing performed by : [facility], [address] [place] [address], [address] TIBC 326 250 - 400 mcg/dL BEKAH RUBIO ([place]) Comment:Testing performed by : [facility], [address] [place] [address], [address] Transferrin saturation 17(L) 20 - 50 % [facility] ([place]) Comment:Testing performed by : [facility], [address] [place] [address], [id number] Blood 12/15/2024 1:21 PM TRAVELING PLANT OPERATOR 12/15/2024 6:51 PM TRAVELING PLANT OPERATOR Amber Barajas NP LAB BLOOD ORDERABLES Final Re sult Performing Organization Address City/[facility]/ZIP Co de Phone Number [facility] ([facility]) 1 [facility] [place] [address] * Vitamin D 25 hydroxy (12/15/2024 1:21 PM TRAVELING PLANT OPERATOR) Vitamin D 25-OH 45 30 - 80 ng/mL Comment:Testing performed by : [address], [address] Blood 12/15/2024 1:21 PM TRAVELING PLANT OPERATOR 12/15/2024 6:51 PM TRAVELING PLANT OPERATOR Amber Barajas NP LAB BLOOD ORDERABLES Final Re sult [facility] RUBIO ([facility]) [address] [place] [address] * Hemoglobin A1c (12/15/2024 1:21 PM TRAVELING PLANT OPERATOR) Pathologist [facility] Hgb A1C 5.5 4.0 - 5.6 % Comment:Testing performed by : [address] [address] Estimated Average Glucose 111 mg/dL [facility] ([facility] [place]) Comment: The ADA recommends reporting an estimated Average Glucose (eAG) with all Hemoglobin A1c results using the equation derived from a study of 507 normal and diabetic adults. Minority populations were underrepresented and children were not included. (Diabetes Care 31:6401-5943, 2008). The eAG is not equivalent to a fasting glucose. Testing performed by: [address], [address] Blood 12/15/2024 1:21 PM TRAVELING PLANT OPERATOR 12/15/2024 6:51 PM TRAVELING PLANT OPERATOR Result [facility] Amber Barajas NP LAB BLOOD ORDERABLES Final Re sult Performing Organization Address [facility] Co de Phone Number BEKAH RUBIO ([facility]) [address] [place] [address] * Vitamin B12 (12/15/2024 1:21 PM TRAVELING PLANT OPERATOR) [facility] Vitamin B12 235 230 - 1,250 pg/mL Comment:Testing performed by : [address] [address] Blood 12/15/2024 1:21 PM TRAVELING PLANT OPERATOR 12/15/2024 6:51 PM TRAVELING PLANT OPERATOR Amber Barajas NP LAB BLOOD ORDERABLES Final Re sult [facility] RUBIO ([facility]) [address] [place] [address] * (ABNORMAL) Lipid panel (12/15/2024 1:21 PM TRAVELING PLANT OPERATOR) Cholesterol 205(H) 30 - 199 mg/dL Comment: Interpretive Data Ages < or = 19 years Acceptable: <170 mg/dL Borderline high: 170-199 mg/dL High: >or= 200 mg/dL Ages > or = 20 years Desirable: <200 mg/dL Borderline high: 200-239 mg/dL High: >or= 240 mg/dL Literature References: 1. Expert Panel on Integrated Guidelines for Cardiovascular Health and Risk Reduction in Children and Adolescents. Pediatrics 2011;128:S213 2. NCEP Expert Panel. Circulation 2004;110:227 Current Interpretive Data was last revised on 2018. Testing performed by: [address] [address] Triglycerides 106 <=149 mg/dL [facility] RUBIO ([place]) Comment: Interpretive Data Ages < or = 9 years Acceptable: <75 mg/dL Borderline high: 75-99 mg/dL High: >or= 100 mg/dL Ages 10 to 20 years Acceptable: <90 mg/dL Borderline high: 90-129 mg/dL High: >or= 130 mg/dL Ages > or = 20 years Desirable: <150 mg/dL Borderline high: 150-199 mg/dL High: 200-499 mg/dL Very high: >or= 499 mg/dL Literature References: 1. Expert Panel on Integrated Guidelines for Cardiovascular Health and Risk Reduction in Children and Adolescents. Pediatrics 2011;128:S213 2. NCEP Expert Panel. Circulation 2003;110:227 Current Interpretive Data was last revised on 2018. Testing performed by: [facility], [address] [place] [address]., [address] HDL 49 >=40 mg/dL [facility] ([place]) Comment: Interpretive Data Ages < or = 19 years Acceptable: >45 mg/dL Borderline low: 40-45 mg/dL Low: <40 mg/dL Ages > or = 20 years Desirable: >or= 60 mg/dL Low: <40 mg/dL Literature References: 1. Expert Panel on Integrated Guidelines for Cardiovascular Health and Risk Reduction in Children and Adolescents. Pediatrics 2011;128:S213 2. NCEP Expert Panel. Circulation 2004;110:227 Current Interpretive Data was last revised on 2018. Testing performed by: [facility], [address] [place] [address]., [address] LDL, calculated 137(H) <=129 mg/dL [facility] RUBIO ([place]) Comment: Interpretive Data Ages < or = 19 years Acceptable: <110 mg/dL Borderline high: 110-129 mg/dL High: >or= 130 mg/dL Ages > or = 20 years Optimal: <100 mg/dL Near optimal: 100-129 mg/dL Borderline high: 130-159 mg/dL High: >160 mg/dL Calculated using the Quoc LDL-C estimating equation. This equation was implemented on 2024. Prior to this date LDL-C was estimated using the Friedewald equation. Literature References: 1. Expert Panel on Integrated Guidelines for Cardiovascular Health and Risk Reduction in Children and Adolescents. Pediatrics 2011;128:S213 2. NCEP Expert Panel. Circulation 2004;110:227 3. Quoc Win et al. EDE Cardiol. 2019February 18;5(5):540-548. doi: 10.1001/jamacardio.2020.0013 Current Interpretive Data was last revised on 2024. Testing performed by: [facility], [address] [place] [address]., [address] Non-HDL Cholesterol 156 mg/dL BE[facility] RUBIO ([place]) Comment: Interpretive Data Ages < or = 19 years Acceptable: <120 mg/dL Borderline high: 120-144 mg/dL High: >145 mg/dL Ages > or = 20 years When triglycerides are >200 mg/dL, Non-HDL cholesterol is a secondary target of therapy with treatment goals that are 30 mg/dL greater than the LDL cholesterol target. Literature References: 1. Expert Panel on Integrated Guidelines for Cardiovascular Health and Risk Reduction in Children and Adolescents. Pediatrics 2011;128:S213 2. NCEP Expert Panel. Circulation 2004;110:227 Current Interpretive Data was last revised on 2018. Testing performed by: [facility], [address] [place] [address]., [address] Chol/HDL ratio 4 STACY RUBIO ([place]) Comment:Testing performed by : [facility], [address] [place] [address]., [address] Blood 12/15/2024 1:21 PM TRAVELING PLANT OPERATOR 12/15/2024 6:51 PM TRAVELING PLANT OPERATOR us Amber Barajas NP LAB BLOOD ORDERABLES Final Re sult [facility] RAMIRO ([place]) 1 [facility] Department [place] [address] * (ABNORMAL) Comprehensive metabolic panel (12/15/2024 1:21 PM TRAVELING PLANT OPERATOR) Sodium 139 135 - 145 mmol/L Comment:Testing performed by : [facility], [address] [place] [address]., [address] Potassium, pl 3.7 3.3 - 4.9 mmol/L [facility] ([place]) Comment:Testing performed by : [facility], [address] [place] [address]., [address] Chloride 101 97 - 110 mmol/L [facility] ([place]) Comment:Testing performed by : [facility], [address] [place] [address]., [address] CO2 21(L) 22 - 32 mmol/L [facility] ([place]) Comment:Testing performed by : [facility], [address] [place] [address]., [address] Anion gap 17(H) 2 - 15 mmol/L [facility] ([place]) Comment:Testing performed by : [facility], [address] [place] [address]., [address] BUN 7 6 - 25 mg/dL [facility] ([place]) Comment:Testing performed by : [address] [address] Creatinine 0.74 0.60 - 1.10 mg/dL [facility] ([place]) Comment:Testing performed by : [address] [address] Glucose 132 70 - 199 mg/dL [facility] ([place]) Comment: Interpretive Data Fasting glucose >/= 126 mg/dl is diagnostic for diabetes. Fasting is defined as no caloric intake for at least 8 hours. Fasting glucose between 100 mg/dl to 125 mg/dl is diagnostic of prediabetes. In a patient with classic symptoms of hyperglycemia or hyperglycemic crisis, a random glucose >/= 200 mg/dl is diagnostic for diabetes. In the absence of unequivocal hyperglycemia, results should be confirmed by repeat testing. The classification and Diagnosis of Diabetes Diabetes Care 202; 46: S19-S40. Current interpretive data was last revised 2022. Testing performed by: [facility], [address] [place] [address]., [address] Calcium 9.2 8.5 - 10.3 mg/dL [facility] ([place]) Comment:Testing performed by : [address], [address] Bilirubin, total 0.2 0.1 - 1.2 mg/dL [facility] ([place]) Comment:Testing performed by : [facility], [address] [place] [address], [address] Protein, pl 7.5 6.5 - 8.5 g/dL [facility] ([place]) Comment:Testing performed by : [address], [address] Albumin 4.1 3.5 - 5.0 g/dL [facility] ([place]) Comment:Testing performed by : [facility], [address] [place] [address], [address] Alk phos 62 40 - 130 Units/L [facility] ([place]) Comment:Testing performed by : [address], [address] ALT 13 7 - 45 Units/L [facility] ([place]) Comment:Testing performed by : [address], [address] AST 27 10 - 45 Units/L [facility] ([place]) Comment:Testing performed by : [address], [address] Blood 12/15/2024 1:21 PM TRAVELING PLANT OPERATOR 12/15/2024 6:51 PM TRAVELING PLANT OPERATOR us Amber Barajas NP LAB BLOOD ORDERABLES Final Re sult [facility] ([place]) 1 [facility] Department [place] [address] * XR Chest Pa Lateral 2 Views (11/25/2024 12:28 PM TRAVELING PLANT OPERATOR) Anatomical Region Laterality Modality Body, Chest N/A Computed Radiogr aphy 11/25/2024 1:47 PM TRAVELING PLANT OPERATOR Narrative 11/25/2024 1:47 PM TRAVELING PLANT OPERATOR EXAM DESCRIPTION: XR CHEST PA LATERAL 2 VIEWS REASON FOR STUDY: cough x1 month, sob, pain when taking deep breath. rule out pneumonia. Sob, cough, congestion x 1 month - states symptoms have worsened x 3 days Smoker No surgeries TECHNIQUE: There are 2 radiographic view(s) of the chest. COMPARISON: Old CT 02/28/2022 FINDINGS: LUNGS: Pulmonary vasculature is normal. No infiltrate or effusion. HEART/MEDIASTINUM: Cardiac silhouette normal in size. Mediastinal and hilar contours appear normal. LINES/TUBES: None. BONES: No acute osseous abnormality. IMPRESSION: No acute cardiopulmonary abnormality. No infiltrate. THIS IS AN ELECTRONICALLY VERIFIED FINAL REPORT 11/25/2024 1:47 PM - Electronically signed by John VILLAGOMEZ: DAHLIA Report ID: [id number] Reading Location: [place] [address] Procedure Note John Cantu MD - 11/25/2024 EXAM DESCRIPTION: XR CHEST PA LATERAL 2 VIEWS REASON FOR STUDY: cough x1 month, sob, pain when taking deep breath. ruleout pneumonia. Sob, cough, congestion x 1 month - states symptoms have worsened x 3 days Smoker No surgeries TECHNIQUE: There are 2 radiographic view(s) of the chest. COMPARISON: Old CT 02/28/2022 FINDINGS: LUNGS: Pulmonary vasculature is normal. No infiltrate or effusion. HEART/MEDIASTINUM: Cardiac silhouette normal in size. Mediastinal andhilar contours appear normal. LINES/TUBES: None. BONES: No acute osseous abnormality. IMPRESSION: No acute cardiopulmonary abnormality. No infiltrate. THIS IS AN ELECTRONICALLY VERIFIED FINAL REPORT 11/25/2024 1:47 PM - Electronically signed by John VILLAGOMEZ: DAHLIA Report ID: [id number] Reading Location: [place] [address] Brenda Jones ACCOUNTANT BOOKKEEPER IMG XR PROCEDURES Final Result * POC Influenza A/B, COVID-19 antigen (11/22/2024 7:15 PM TRAVELING PLANT OPERATOR) Pathologist [facility] Influenza A Ag, POC Negative Negative [facility] Influenza B Ag, POC Negative Negative [facility] COVID-19 Ag POC Presumptive Negative Presumptive Negative, Invalid [facility] Nasal 11/22/2024 7:15 PM TRAVELING PLANT OPERATOR Gerda Bean NP POINT OF CARE TEST ORDER LOKESH Final Result Performing Organization Address City/[facility] Co de Phone Number [facility] [address] [place] [address] * Hepatitis C antibody Blood (07/13/2024 12:21 PM CDT) Pathologist [facility] Hep C Ab Nonreactive Nonreactive Comment: Interpretive Data Nonreactive: Antibodies to HCV not detected. Does NOT exclude the possibility of recent exposure to HCV. Equivocal: Equivocal for HCV antibodies. Supplemental molecular testing will be automatically performed to determine infection status in accordance with current CDC screening recommendations. Reactive: Positive for HCV antibodies. This may represent current or past HCV infection. Supplemental molecular testing will be automatically performed to determine current infection status in accordance with current CDC screening recommendations. Interpretive data was last revised on 2020. Testing performed by: [facility], [address] [place] [address]., [id number] Blood 07/13/2024 12:2 1 PM CDT 07/13/2024 5:06 PM CDT Tati Henry NP LAB MICROBIOLOGY - GENERAL ORDER LOKESH Final Result [facility] ([facility] [place]) 1 [facility] Department [place] [address] from Last 3 Months or Most Recently Relevant to Health Maintenance Insurance [facility] H[facility]/PPO Address: [place] [address] [facility] H[facility]/PPO Address: [place] [address] [facility] H[facility]/PPO Address: [address] [address] [place] [address] Advance Directives For more information, please contact: [phone] * Full Code (Latest Code Status on File) Date Activated Date Inactivated Comments 12/11/2022 11:31 AM 12/11/2022 7:02 PM * Full Code Date Activated Date Inactivated Comments 12/11/2022 11:31 AM 12/11/2022 11:31 AM * Full Code Date Activated Date Inactivated Comments 10/29/2022 11:30 AM 10/29/2022 6:26 PM * Full Code Date Activated Date Inactivated Comments 10/29/2022 11:30 AM 10/29/2022 11:30 AM * Full Code Date Activated Date Inactivated Comments 10/03/2021 12:15 PM 10/03/2021 7:26 PM Care Teams Home Staging Specialist Relationship Specialty Start Date End Date Tati Henry NP PCP - General Family Medicine 08/27/23
--- OUTSIDE RECORDS SUMMARY | 2025-02-18 08:22 | XMS_ITS | Clinical Summary ---
Author Organization [facility] Address [address] [facility], [address] [address] Phone Care Team Providers Care Billposter Name Role Phone Edwar Encinas MD Unavailable Alcides lAves MD Unavailable [phone] Tati Henry TABLEAU LEAD, [employer]AR[employer] Primary Care Provide r Allergies Active Allergy Reactions Criticality Noted Date Comments Penicillins Anaphylaxis High 04/27/2009 As a kid Valacyclovir Hcl Rash 01/11/2025 Medications traMADol (ULTRAM) 50 MG TabletIndicatio ns:Right lower quadrant abdominal pain Take 1 Tablet by mouth every 6 hours as needed for Severe pain. 12 Tablet 4 Active cyclobenzaprine (FLEXERIL) 10 MG Tablet TAKE 1/2 TO 1 TABLET BY MOUTH EVERY 8 HOURS NEEDED FOR BACK PAIN Active ketorolac (TORADOL) 10 MG Tablet Take 1 Tablet by mouth every 6 hours as needed for Moderate or more severe pain. 20 Tablet 4 Active naloxone HCl (Narcan) 4 MG/0.1ML Liquid 1 Estill by Nasal route as needed for Opioid Reversal. Administer in one nostril for symptoms of overdose (severe sleepiness, breathing problems, not responsive). Call 911. May repeat 1 spray in alternate nostril in 2-3 minutes if needed. 2 Each 4 Active albuterol 108 (90 Base) MCG/ACT Aerosol Solution take 2 Puffs by inhalation every 4 hours as needed. Active Norethindrone Acet-Ethinyl Est (Aurovela 11/09) 1-20 MG-MCG Tablet Take 1 Tablet by mouth daily. Active busPIRone (BUSPAR) 10 MG Tablet Take 10 mg by mouth 3 times daily. Active ergocalciferol (VITAMIN D) 66836 UNIT Capsule Take 50,000 Units by mouth. Active FLUTICASONE PROPIONATE, NASAL, NA by Nasal route. Acti ve sertraline (ZOLOFT) 25 MG Tablet Take 25 mg by mouth daily. Active tiZANidine HCl 4 MG Capsule Take 4 mg by mouth 3 times daily. Active rOPINIRole (REQUIP) 0.5 MG Tablet Take 0.5 mg by mouth 3 times daily. Active lubiprostone (Amitiza) 24 MCG Capsule Take by mouth 2 times daily (with meals). Active nortriptyline (PAMELOR) 25 MG Capsule Take 25 mg by mouth nightly. Active Active Problems No known active problems Family History Medical History Relation Name Comments No Known Problems Daughter No Known Problems Father No Known Problems Half-Sister 1 Anny No Known Problems Half-Sister 2 Amber No Known Problems Maternal Grandfather No Known Problems Maternal Grandmother Breast Cancer Mother Cancer Mother Liver Cancer Mother No Known Problems Paternal Grandfather No Known Problems Sister No Known Problems Son Relation Name Status Comments Daughter Alive Father Alive Half-Sister 1 Anny Alive Half-Sister 2 Amber Alive Maternal Grandfather Maternal Grandmother Alive Mother Alive Paternal Grandfather Sister Alive Son Alive Social History Tobacco Use Types Packs/Day Years Used Date Smoking Tobacco: Every Day Cigarettes 1 17.1 Started: 11/2006; Last attempted to quit: 12/13/2023 Smokeless Tobacco: Never Tobacco Cessation:Ready to Q uit: Not Asked; Counseling Given: Not Answered Alcohol Use Standard Drinks/Week Comments Never 0 (1 standard drink = 0.6 oz pur e alcohol) Sexually Active Control Partners Comments Yes Male Comments No Sex and Gender Information Value Date Recorded Sex Assigned at Not on file 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 Gender Identity Not on file Sexual Orientation Not on file Last Filed Vital Signs Vital Sign Reading Time Taken Comments Blood Pressure 110/69 06/03/2024 3:45 PM CDT Pulse 62 06/03/2024 3:45 PM CDT Temperature 36.2 C (97.2 F) 06/03/2024 3:05 PM CDT Respiratory Rate 12 06/03/2024 3:45 PM CDT Oxygen Saturation 100% 06/03/2024 3:45 PM CDT Inhaled Oxygen Concentration - - Weight 67.6 kg (149 lb) 06/03/2024 3:05 PM CDT Height 177.8 cm (5' 10 ) 06/03/2024 3:05 PM CDT Body Mass Index 21.38 06/03/2024 3:05 PM CDT Plan of Treatment Health Maintenance Due Date Last Done Comments Hepatitis C Virus (HCV) Screening 1992 Hepatitis B Immunization (1 of 3 - 19+ 3-dose series) 2011 Pneumococcal Immunization Combined (1 of 2 - PCV) 2011 Pap Smear 2013 Cervical Cancer Screening (CCS) 2022 HPV/Cotest 2022 Influenza Immunization (#1) 2024 SARS-COV-2 Immunization ( season) 2024 08/10/2021, 07/04/2021 Respiratory Syncytial Virus (RSV) Immunization (Adult) (1 - 1-dose 75+ series) 2067 DTaP/Tdap/Td Immunization Discontinued 09/22/2019 TdaP Immunization Completed 09/22/2019 Meningococcal Immunization (ACWY) Aged Out No longer eligible based on patient's age to complete this topic Rotavirus Immunization Aged Out No lo nger eligible based on patient's age to complete this topic Insurance [facility] Care Teams Billposter Relationship Specialty Start Date End Date Tati Henry APRN, [employer] [address] [place] [address] PCP - General Advanced Practice Nurse 06/03/24 Edwar Encinas MD [address] [address] Consulting Physician Colon and Rectal Surgery 09/07/22 Alcides Alves MD [address] [address] Consulting Physician General Surgery 01/09/24
--- OUTSIDE RECORDS SUMMARY | 2025-02-18 08:22 | XMS_ITS | Encounter Summary ---
Author Organization [facility] Healthcare Address [address] [place] [address] Care Team Providers Care Financial Service Rep Name Role Phone Tati Henry NP Primary Care Provider [phone] Reason for Visit * Reason Onset Date Comments Medication Problem 11/16/2024 Encounter Details Date Type Department Care Team (Late st Contact Info) Description 11/16/2024 Telephone [facility] [address] [facility] [address] [place] [address] Jimy Pantoja MD [address] [place] [address] Medication Problem Social History Tobacco Use Types Packs/Day Years Used Date Smoking Tobacco: Every Day Cigarettes Smokeless Tobacco: Never Comments:Smoked half a pack of cigarettes per day from 2009 until 12/14 Passive Exposure Comments:not in 24 hr Alcohol Use Standard Drinks/Week Comments Not Currently 0 (1 standard drink = 0.6 oz pur e alcohol) [facility] Utilities Answer Date Recorded In the past 12 months has [employer], gas, oil, or water [employer] threatened to shut off services in your [...] 08/27/2023 How often do you attend chur ch or jewish services? Never 08/27/2023 Do you belong to any clubs o r organizations such as jainism groups, unions, fraternal or athletic groups, or school groups? No 08/27/2023 How often do you attend meet ings of the clubs or organizations you belong to? Never 08/27/2023 Are you , , di vorced, , never , or living with a partner? 08/27/2023 AUDIT-C Answer Date Recorded Q1: How often do you have a drink containing alcohol? Never 09/16/2024 Q2: How many drinks containi ng alcohol do you have on a typical day when you are drinking? Patient does not drink Q3: How often do you have si x or more drinks on one occasion? Never 09/16/2024 Overall Financial Resource Strain (CARDIA) Answe r Date Recorded How hard is it for you to pa y for the very basics like food, housing, medical care, and heating? Not hard at all 08/27/2023 PHQ-2 Answer Date Recorded PHQ-2 Total Score (If total score is 3 or more points, staff should administer the PHQ-9) 0 08/31/[address] [facility] [place] of Occupat ional Health - Occupational Stress Questionnaire Answer Date Recorded [...] place to sleep or slept in a care home (including now)? No 08/27/2023 Personal Safety Answer Date Recorded Have you ever been in or are you currently in a harmful physical or emotional relationship or is someone making you feel afraid or unsafe? 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 Gender Identity Not on file Sexual Orientation Not on file documented as of this encounter Plan of Treatment Not on file documented as of this encounter Goals Goal Patient Goal Type Associated Problems [...] lifestyle strategies and compensatory methods as needed documented as of this encounter Visit Diagnoses Not on filedocumented in this encounter Additional Health Concerns Infection Onset Date Last Indicated Resolved Time COVID: Suspected 11/22/2024 11/22/2024 11/22/2024 7:16 PM SERVICE DELIVERY ANALYST COVID: Suspected 01/21/2025 01/21/2025 01/21/2025 2:44 PM CDT documented as of this encounter Care Teams Financial Service Rep Relationship Specialty Start Date End Date Tati Henry NP PCP - General Family Medicine 08/27/23 documented as of this encounter
--- OUTSIDE RECORDS SUMMARY | 2025-02-18 08:22 | XMS_ITS | Clinical Summary ---
Author Organization [facility] Address [address] [place] [address] Phone Care Team Providers Care Material Handling Warehouse Supervisor Name Role Phone CHRIS PORRAS DO Primary Care Provider [phone] Reason for Visit and Chief Complaint REFERRAL Problems Includes: Problems addressed during this encounter and other active Problems No Active Problems Plan of Treatment Referrals To Diagnosis Copy Clerk [facility] [address] [place] [address] Gastro-esophageal reflux dis with esophagitis, without bleed Note: FAX [phone] Last Documented On 3 4:06PM ; [facility] Assessments Includes: Assessments from this encounter No Assessments Recorded Medical Equipment - Implanted Devices Includes: Current Devices No Medical Equipment Recorded Medications Includes: Medications discussed during this encounter and other current Medications Current Medications (continue as prescribed) Medrol 4 MG Oral Tablet Therapy Pack 11/29/2022 Provider: CHRIS PORRAS DO Diagnosis: Pain in unspecif ied joint as directed Last Documented On 11/29/2022 4:59PM By Neal Encinas ; [facility] Cyclobenzaprine HCl 10 MG Oral Tablet 11/15/2022 Provider: TORY ALVAREZ Diagnosis: Lumbago with sci atica, right side 1/2- 1 tablet po q8 hours pr n for back pain Last Documented On 3 2:16PM By Tory ALVAREZ ; [facility] Pantoprazole Sodium 40 MG Oral Tablet Delayed Release 09/27/2022 Provider: Diagnosis: Last Documented On 11/15/2022 2:05PM By Clover Slaughter MA ; [facility] Albuterol Sulfate HFA 108 (90 Base) MCG/ACT Inhalation Aerosol Solution 01/19/2022 Provider: TORY SANTIAGO [facility] Diagnosis: Acute bronchitis , unspecified as directed 2 puffs inhaled q4-6 hours prn Last Documented On 2 4:17PM By Tory Santiago [facility] ; [facility] Omeprazole 20 MG Oral Capsule Delayed Release 07/25/2021 Provider[facility] Diagnosis: Gastro-esophagea l reflux dis with esophagitis, without bleed 1 Capsule every morning Last Documented On 07/19/2022 1:56PM By Damaris Jordan Chris ; [facility] Norethin Seven-Eth Estrad-FE 1-20 MG-MCG Oral Tablet Provider: Diagnosis: Last Documented On 07/11/2021 2:25PM By Damaris THOMSON ; [facility] Medications Administered Includes: Administered Medications from this encounter No Administered Medications Recorded Results Includes: Results discussed during this encounter No Results Recorded For Specified Dates History of Present Illness Includes: History of Present Illness from this encounter No History of Present Illness Recorded Social History No Social History Recorded - Smoking Status Unknown Medical History Includes: Medical History addressed during this encounter No Medical History Recorded Family History Includes: Family History addressed during this encounter No Family History Recorded Review of Systems Includes: Review of Systems from this encounter No Review of Systems Recorded Mental Status Includes: Mental Status from this encounter No Mental Status Recorded Functional Status Includes: Functional Status from this encounter No Functional Status Recorded Physical Exam Includes: Physical Exam from this encounter No Physical Exam Recorded Allergies Includes: Active Allergies Substance Type Reaction Onset Date Resolved Date Statu s Penicillins Allergy 04/27/2009 Active Last Documented On 3 4:01PM ; [facility] Encounters Encounter Provider Location Date Check-In Time Check-Out Time Diagnosis REFERRAL CHRIS PORRAS DO 09/10/2022 8:38AM 11:59PM Insurance Includes: Active Insurance Policies Plan Name Member ID Group # Subscriber Relationship Effect thuan Dates 1 - [facility] [id number] [employer] Clinical Notes Includes: Clinical Notes from this encounter No Clinical Notes Recorded
--- OUTSIDE RECORDS SUMMARY | 2025-02-18 08:22 | XMS_ITS ---
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 Name Role Phone CHRIS PORRAS DO Primary Care Provider [phone] Problems Includes: Active, inactive, and resolved Problems All Visits Onset Date Resolved Date Provider Condition S tatus Hand Sprain Right 1st [facility] Joint 12/31/2009 CHRIS PORRAS DO Inactive Last Documented On 06/10/2018 10:31AM ; [facility] Note: Unchanged Plan of Treatment Findings Encounter Date Go to the emergency room if condition worsens PROBLEM VISIT with CHRIS PORRAS DO 11/29/2022 Last Documented On 3 8:36PM ; [facility] Medication instruction PROBLEM VISIT with CHRIS PORRAS DO 11/29/2022 Last Documented On 3 8:36PM ; [facility] Ordered follow-up visit PROBLEM VISIT with CHRIS PORRAS DO 11/29/2022 Last Documented On 3 8:36PM ; [facility] Ordered prednisone PROBLEM VISIT with CHRIS LOBO DO 11/29/2022 Last Documented On 3 8:36PM ; [facility] Ordered return to the clinic if condition worsens or new symptoms arise PROBLEM VISIT with CHRIS PORRAS DO 11/29/2022 Last Documented On 3 8:36PM ; [facility] PLAN [Use for s.o.a.p. note free text] PROBLEM VISIT with CHRIS PORRAS DO 11/29/2022 Last Documented On 3 8:36PM ; [facility] Requested Physical Therapy PROBLEM VISIT with SEVERO PORRAS DO 11/29/2022 Last Documented On 3 8:36PM ; [facility] Watch for signs/symptoms of infection DC OBLEM VISIT with CHRIS PORRAS DO 11/29/2022 Last Documented On 3 8:36PM ; [facility] Continue current medication PROBLEM VISIT with Rain PORRAS DO 07/19/2022 Last Documented On 2 1:18PM ; [facility] Medication instruction PROBLEM VISIT with CHRIS PORRAS DO 07/19/2022 Last Documented On 2 1:18PM ; [facility] Ordered follow-up visit PROBLEM VISIT with CHRIS PORRAS DO 07/19/2022 Last Documented On 2 1:18PM ; [facility] Ordered return to the clinic if condition worsens or new symptoms arise PROBLEM VISIT with CHRIS PORRAS DO 07/19/2022 Last Documented On 2 1:18PM ; [facility] PLAN [Use for s.o.a.p. note free text] PROBLEM VISIT with CHRIS PORRAS DO 07/19/2022 Last Documented On 2 1:18PM ; [facility] Watch for signs/symptoms of infection DC OBLEM VISIT with CHRIS PORRAS DO 07/19/2022 Last Documented On 2 1:18PM ; [facility] Ordered return to the clinic if condition worsens or new symptoms arise PROBLEM VISIT with JUAN ORELLANAGRAVE [facility] 07/25/2021 Last Documented On 1 11:12AM ; [facility] Ordered patient will call fo r appointment as needed PROBLEM VISIT with JUAN ORELLANAGRAVE [facility]- 07/19/2021 Last Documented On 1 4:30PM ; [facility] Ordered return to the clinic if condition worsens or new symptoms arise PROBLEM VISIT with JUAN CABRERA [facility] 07/19/2021 Last Documented On 1 4:30PM ; [facility] Medication instruction PROBLEM VISIT with CHRIS PORRAS DO 07/11/2021 Last Documented On 1 4:14PM ; [facility] Ordered return to the clinic if condition worsens or new symptoms arise PROBLEM VISIT with CHRIS PORRAS DO 07/11/2021 Last Documented On 1 4:14PM ; [facility] PLAN [Use for s.o.a.p. note free text] PROBLEM VISIT with CHRIS PORRAS DO 07/11/2021 Last Documented On 1 4:14PM ; [facility] Watch for signs/symptoms of infection DC OBLEM VISIT with CHRIS PORRAS DO 07/11/2021 Last Documented On 1 4:14PM ; [facility] once calmed dowm more omt or pt, agrees PROBLEM VISIT with CHRIS PORRAS DO 03/27/2021 Last Documented On 1 8:47AM ; [facility] Ordered an X-ray PROBLEM VISIT with CHRIS DEWITT EFF DO 03/27/2021 Last Documented On 1 8:47AM ; [facility] Ordered prednisone PROBLEM VISIT with CHRIS LOBO DO 03/27/2021 Last Documented On 1 8:47AM ; [facility] Ordered vascular smooth musc le relaxants PROBLEM VISIT with CHRIS PORRAS DO 03/27/2021 Last Documented On 1 8:47AM ; [facility] Ordered follow-up visit as n eeded with an office visit if symptoms persist or worsen WALK-IN CLINIC SICK VISIT with EVELINE BORJAS [facility] 11/29/2019 Last Documented On 0 3:06PM ; [facility] Ordered patient to call if p roblem develops WALK-IN CLINIC SICK VISIT with EVELINE BORJAS [facility] 11/29/2019 Last Documented On 0 3:06PM ; [facility] Ordered referred to primary care physician WALK-IN CLINIC SICK VISIT with EVELINE BORJAS [facility] 11/29/2019 Last Documented On 0 3:06PM ; [facility] Ordered return to the clinic if condition worsens or new symptoms arise WALK-IN CLINIC SICK VISIT with EVELINE BORJAS [facility] 11/29/2019 Last Documented On 0 3:06PM ; [facility] Pt to use prescription as or dered. Purpose of and use of medication discussed. WALK-IN CLINIC SICK VISIT with TOAN FISH [facility] 09/02/2019 Last Documented On 9 4:01PM ; [facility] Continue current medication WALK-IN CLIN IC SICK VISIT with OTAN FISH CHAVA-Lois 09/02/2019 Last Documented On 9 4:01PM ; [facility] Fluids and rest. Tylenol for pain SICK VISIT wit CHRIS PORRAS DO 04/13/2019 Last Documented On 9 8:51PM ; [facility] Ordered patient to call if daryn fajardo develops SICK VISIT with CHRIS PORRAS DO 04/13/2019 Last Documented On 9 8:51PM ; [facility] Ordered return to the clinic if condition worsens or new symptoms arise SICK VISIT with CHRIS PORRAS DO 04/13/2019 Last Documented On 9 8:51PM ; [facility] Patient education about anti biotics: need to finish even if feeling better SICK VISIT with CHRIS PORRAS DO 04/13/2019 Last Documented On 9 8:51PM ; [facility] Muscle relaxers 1/2 to 1 tab every six hours or just at bedtime. Do not drink or drive w/relaxers. Steroid arnaldo for the inflammation, start tomorrow. Return if not improving w/do an adjustment. Follow the constipation regimen. Mirilax, Mineral oil, stay hydrated PROBLEM VISIT with CHRIS PORRAS DO 02/13/2019 Last Documented On 9 7:39PM ; [facility] Medication instruction PROBLEM VISIT with CHRIS PORRAS DO 02/13/2019 Last Documented On 9 7:39PM ; [facility] Ordered patient to call if daryn cavanaughm develops PROBLEM VISIT with CHRIS PORRAS DO 02/13/2019 Last Documented On 9 7:39PM ; [facility] Ordered return to the clinic if condition worsens or new symptoms arise PROBLEM VISIT with CHRIS PORRAS DO 02/13/2019 Last Documented On 9 7:39PM ; [facility] Ordered nonsteroidal anti-inflammatory SICK VISI T with CHRIS PORRAS DO 07/23/2018 Last Documented On 8 8:56PM ; [facility] Medication instruction SICK VISIT with CHRIS MACKEY DO 06/10/2018 Last Documented On 8 9:09PM ; [facility] Ordered patient to call if daryn fajardo develops SICK VISIT with CHRIS PORRAS DO 06/10/2018 Last Documented On 8 9:09PM ; [facility] Ordered return to the clinic if condition worsens or new symptoms arise SICK VISIT with CHRIS PORRAS DO 06/10/2018 Last Documented On 8 9:09PM ; [facility] Patient education about anti biotics: need to finish even if feeling better SICK VISIT with CHRIS PORRAS DO 06/10/2018 Last Documented On 8 9:09PM ; [facility] Ordered Clinical summary pro vided to patient . Plan discussed and patient/parent/caregiver states understanding SICK VISIT with KUSH TOLBERT PA-C 07/12/2016 Last Documented On 6 3:05PM ; [facility] Ordered follow-up visit as n eeded with an office visit. Push fluids, hot steamy showers, vicks. Tylenol/motrin as needed. OTC Tylenol cold and sinus. Call sooner if symptoms worsen/persist beyond 1 week SICK VISIT with KUSH TOLBERT PA-C 07/12/2016 Last Documented On 6 3:05PM ; [facility] Ordered patient to call if daryn fajardo develops PROBLEM VISIT with CHRIS PORRAS DO 05/01/2016 Last Documented On 6 9:43AM ; [facility] Ordered return to the clinic if condition worsens or new symptoms arise PROBLEM VISIT with CHRIS PORRAS DO 05/01/2016 Last Documented On 6 9:43AM ; [facility] Stretches as demonstrated. A ntibiotics. WARM CLOTH TO AXILLARY AREA. DO NOT SHAVE FOR A FEW DAYS. LITTLE TO NO DEODARANT PROBLEM VISIT with CHRIS PORRAS DO 12/06/2015 Last Documented On 6 8:59PM ; [facility] Ordered patient to call if p afshanm develops PROBLEM VISIT with CHRIS PORRAS DO 12/06/2015 Last Documented On 6 8:59PM ; [facility] Ordered return to the clinic if condition worsens or new symptoms arise PROBLEM VISIT with CHRIS PORRAS DO 12/06/2015 Last Documented On 6 8:59PM ; [facility] Ordered patient to call if p afshanm develops SICK VISIT with CHRIS PORRAS DO 03/02/2015 Last Documented On 5 4:28PM ; [facility] Ordered return to the clinic if condition worsens or new symptoms arise SICK VISIT with CHRIS PORRAS DO 03/02/2015 Last Documented On 5 4:28PM ; [facility] We will obtain an x-ray at [facility] as patient cannot take off work as she is still in her probationary period and would be easiest on her. We will call her the results. I have recommended NSAIDS OTC at this time. She will take as bottle directs for next 3-4 weeks and then trial off. She will also use ice and avoid aggravating activities. If this does not resolve her knee pain we can try physical therapy. If this fails referral to ortho. Patient agrees with this POC and will return as directed NEW PATIENT VISIT with NATHANIEL FRITZ [facility] 03/18/2014 Last Documented On 4 12:25PM ; [facility] Ordered nonsteroidal anti-inflammatory P ROBLEM VISIT with CHRIS Tammy VERN DO 04/28/2010 Last Documented On 0 9:49PM ; [facility] Ordered vascular smooth musc le relaxants PROBLEM VISIT with CHRIS Munoz VERN DO 04/28/2010 Last Documented On 0 9:49PM ; [facility] Referrals To Diagnosis Other [facility] - [address] [place] [address] - Last Documented On 0 3:53PM ; [facility] [employer]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 [employer] 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 JING RODNEY MD - [facility] - [address] [place] [id number] - Gastro-esophageal reflux dis with esophagitis, without bleed Last Documented On 1 11:34AM ; [facility] [employer] [facility] - [address] [place] [address] Gastro-esophageal reflux dis with esophagitis, without bleed Note: FAX [phone] Last Documented On 3 4:06PM ; [facility] Instructions to patient Go to the emergency room if condition worsens Last Documented On 3 4:24PM ; [facility] Watch for signs/symptoms of infection Last Documented On 3 4:24PM ; [facility] Intervention and counseling on cessation of tobacco use Last Documented On 3 4:02PM ; [facility] Watch for signs/symptoms of infection Last Documented On 2 2:16PM ; [facility] Intervention and counseling on cessation of tobacco use Last Documented On 2 1:57PM ; [facility] Watch for signs/symptoms of infection Last Documented On 1 2:57PM ; [facility] Return to the clinic if cond ition worsens or new symptoms arise Last Documented On 1 4:46PM ; [facility] Go to the emergency room if condition worsens Last Documented On 1 4:46PM ; [facility] Return to the clinic if cond ition worsens or new symptoms arise Last Documented On 1 9:25AM ; [facility] Return to the clinic if cond ition worsens or new symptoms arise Last Documented On 1 9:30AM ; [facility] Go to the emergency room if condition worsens Last Documented On 1 9:25AM ; [facility] Go to the emergency room if condition worsens Last Documented On 1 9:30AM ; [facility] Go to the emergency room if condition worsens Last Documented On 0 3:05PM ; [facility] Watch for signs/symptoms of infection Last Documented On 0 3:05PM ; [facility] Watch for signs/symptoms of infection, return to the clinic if seen Last Documented On 0 3:05PM ; [facility] Return to the clinic if cond ition worsens or new symptoms arise Last Documented On 8 8:54PM ; [facility] Go to the emergency room if condition worsens Last Documented On 6 9:42AM ; [facility] Return to the clinic if cond ition worsens or new symptoms arise Last Documented On 6 8:58PM ; [facility] Go to the emergency room if condition worsens Last Documented On 6 8:58PM ; [facility] Go to the emergency room if condition worsens Last Documented On 6 8:59PM ; [facility] Go to the emergency room if condition worsens Last Documented On 5 4:27PM ; [facility] Return to the clinic if cond ition worsens or new symptoms arise Last Documented On 0 11:36AM ; [facility] Education and Decision Aids were provided during visit for: Patient education about anti biotics: need to finish even if feeling better Last Documented On 9 2:48PM ; [facility] Patient education about anti biotics: need to finish even if feeling better Last Documented On 8 9:25AM ; [facility] Assessments Includes: Assessments for all patient encounters Findings Encounter Date Arthralgias of multiple sites PROBLEM VISIT with CHRIS PORRAS DO 11/29/2022 Last Documented On 3 8:36PM ; [facility] Myalgia and myositis PROBLEM VISIT with CHRIS GREENFIELD DO 11/29/2022 Last Documented On 3 8:36PM ; [facility] Sciatica PROBLEM VISIT with CHRIS ANGULO DO 11/29/2022 Last Documented On 3 8:36PM ; [facility] Somatic dysfunction of lumbar region PROBLEM VIS IT with CHRIS PORRAS DO 11/29/2022 Last Documented On 3 8:36PM ; [facility] Somatic dysfunction of sacrum PROBLEM VISIT with CHRIS PORRAS DO 11/29/2022 Last Documented On 3 8:36PM ; [facility] Lumbago with right-side sciatica WALK IN PATIENT - ESTABLISHED PT with TORY Iyer [employer]-C 11/15/2022 Last Documented On 3 2:16PM ; [facility] Sprain of the anterior tibio talar ligament of the right ankle PROBLEM VISIT with CHRIS PORRAS DO 07/19/2022 Last Documented On 2 1:18PM ; [facility] Sprain of the tibionavicular ligament of the right ankle PROBLEM VISIT with CHRIS PORRAS DO 07/19/2022 Last Documented On 2 1:18PM ; [facility] Acute maxillary sinusitis COVID SICK VIS IT- ESTABLISHED PATIENT with EVELINE BORJAS [employer] CHEMIST-BC 02/16/2022 Last Documented On 2 6:50PM ; [facility] Acute bronchitis [J20.9 - Ac [place] bronchitis, unspecified] COVID SICK VISIT- ESTABLISHED PATIENT with TORY Iyer [employer] CHEMIST-C 01/19/2022 Last Documented On 2 4:09PM ; [facility] Abdominal pain PROBLEM VISIT with JUAN A JEFFERS RGRAVE PMHNP-BC COSMETIC CHEMIST-BC 07/25/2021 Last Documented On 1 11:12AM ; [facility] Esophageal reflux PROBLEM VISIT with JUAN A RICK PMHNP-BC COSMETIC CHEMIST-BC 07/25/2021 Last Documented On 1 11:12AM ; [facility] Nausea PROBLEM VISIT with JUAN A JEFFERS RGRAVE PMHNP-BC COSMETIC CHEMIST-BC 07/25/2021 Last Documented On 1 11:12AM ; [facility] Abdominal pain PROBLEM VISIT with JUAN A JEFFERS RGRAVE PMHNP-BC COSMETIC CHEMIST-BC 07/19/2021 Last Documented On 1 4:30PM ; [facility] Nausea PROBLEM VISIT with JUAN A JEFFERS RGRAVE PMHNP-BC COSMETIC CHEMIST-BC 07/19/2021 Last Documented On 1 4:30PM ; [facility] Viral gastroenteritis PROBLEM VISIT with JUAN A RICK PMHNP-BC COSMETIC CHEMIST-BC 07/19/2021 Last Documented On 1 4:30PM ; [facility] Contusion with intact skin s urface of midline of nose PROBLEM VISIT with CHRIS Munoz PALCHEFF DO 07/11/2021 Last Documented On 1 4:14PM ; [facility] Arthralgias of multiple sites PROBLEM VISIT with CHRIS Munoz PALCHEFF DO 03/27/2021 Last Documented On 1 8:47AM ; [facility] Low back pain PROBLEM VISIT with CHRIS Munoz PALCHE FF DO 03/27/2021 Last Documented On 1 8:47AM ; [facility] Lower backache PROBLEM VISIT with CHRIS L PALCHE FF DO 03/27/2021 Last Documented On 1 8:47AM ; [facility] Myalgia and myositis PROBLEM VISIT with CHRIS Munoz P ALCHEFF DO 03/27/2021 Last Documented On 1 8:47AM ; [facility] Somatic dysfunction of lumbar region PROBLEM VIS IT with CHRIS Munoz PALCHEFF DO 03/27/2021 Last Documented On 1 8:47AM ; [facility] Somatic dysfunction of thoracic region P ROBLEM VISIT with CHRIS Munoz PALCHEFF DO 03/27/2021 Last Documented On 1 8:47AM ; [facility] Arthralgias of multiple sites PROBLEM VISIT with CHRIS Munoz PALCHEFF DO 03/23/2021 Last Documented On 1 8:11PM ; [facility] Myalgia and myositis PROBLEM VISIT with CHRIS L P ALCHEFF DO 03/23/2021 Last Documented On 1 8:11PM ; [facility] Somatic dysfunction of cervical region P ROBLEM VISIT with CHRIS L PALCHEFF DO 03/23/2021 Last Documented On 1 8:11PM ; [facility] Somatic dysfunction of lumbar region PROBLEM VIS IT with CHRIS L PALCHEFF DO 03/23/2021 Last Documented On 1 8:11PM ; [facility] Somatic dysfunction of rib cage PROBLEM VISIT wi th CHRIS L PALCHEFF DO 03/23/2021 Last Documented On 1 8:11PM ; [facility] Somatic dysfunction of sacrum PROBLEM VISIT with CHRIS L PALCHEFF DO 03/23/2021 Last Documented On 1 8:11PM ; [facility] Somatic dysfunction of thoracic region P ROBLEM VISIT with CHRIS L PALCHEFF DO 03/23/2021 Last Documented On 1 8:11PM ; [facility] Acute pharyngitis WALK-IN CLINIC SICK VISIT with EVELINE BORJAS [employer]METIC CHEMIST-BC 11/29/2019 Last Documented On 0 3:06PM ; [facility] Group A streptococcus: B hem olytic pharyngitis WALK-IN CLINIC SICK VISIT with TOAN FISH COSMETIC CHEMIST-C 09/02/2019 Last Documented On 9 4:01PM ; [facility] Pharyngitis, Strep SICK VISIT with CHRIS L PALCHE FF DO 04/13/2019 Last Documented On 9 8:51PM ; [facility] Referred earache SICK VISIT with CHRIS L PALCHEFF DO 04/13/2019 Last Documented On 9 8:51PM ; [facility] Somatic dysfunction of lumbar region PROBLEM VIS IT with CHRIS L PALCHEFF DO 02/13/2019 Last Documented On 9 7:39PM ; [facility] Allergic rhinitis due to pollen SICK VISIT with CHRIS L PALCHEFF DO 07/23/2018 Last Documented On 8 8:56PM ; [facility] Somatic dysfunction of rib cage SICK VISIT with CHRIS L PALCHEFF DO 07/23/2018 Last Documented On 8 8:56PM ; [facility] Somatic dysfunction of thoracic region SICK VISI T with CHRIS L PALCHEFF DO 07/23/2018 Last Documented On 8 8:56PM ; [facility] Viral pharyngitis SICK VISIT with CHRIS L PALCHEF F DO 07/23/2018 Last Documented On 8 8:56PM ; [facility] Abdominal pain/Colic SICK VISIT with CHRIS L PALC HEFF DO 06/10/2018 Last Documented On 8 9:09PM ; [facility] Acute pharyngitis SICK VISIT with CHRIS L PALCHEF F DO 06/10/2018 Last Documented On 8 9:09PM ; [facility] Acute sinusitis SICK VISIT with KUSH TOLBERT PA-C 07/12/2016 Last Documented On 6 3:05PM ; [facility] Flat warts PROBLEM VISIT with CHRIS L PALCHE FF DO 05/01/2016 Last Documented On 6 9:43AM ; [facility] Arthralgias in multiple sites PROBLEM VISIT with CHRIS L PALCHEFF DO 12/06/2015 Last Documented On 6 8:59PM ; [facility] Furuncle PROBLEM VISIT with CHRIS L PALCHE FF DO 12/06/2015 Last Documented On 6 8:59PM ; [facility] Somatic dysfunction of thoracic region P ROBLEM VISIT with CHRIS L PALCHEFF DO 12/06/2015 Last Documented On 6 8:59PM ; [facility] Acute pharyngitis SICK VISIT with CHRIS L PALCHEF F DO 03/02/2015 Last Documented On 5 4:28PM ; [facility] Sinusitis SICK VISIT with CHRIS L PALCHEFF DO 03/02/2015 Last Documented On 5 4:28PM ; [facility] Sore throat SICK VISIT with CHRIS L PALCHEFF DO 03/02/2015 Last Documented On 5 4:28PM ; [facility] Upper respiratory infection SICK VISIT with CHRIS L PALCHEFF DO 03/02/2015 Last Documented On 5 4:28PM ; [facility] Patellofemoral syndrome of the right kne e NEW PATIENT VISIT with NATHANIEL COTTRELL 03/18/2014 Last Documented On 4 12:25PM ; [facility] Arthralgias in multiple sites PROBLEM VISIT with CHRIS L PALCHEFF DO 04/28/2010 Last Documented On 0 9:49PM ; [facility] Diarrhea PROBLEM VISIT with CHRIS L PALCHE FF DO 04/28/2010 Last Documented On 0 9:49PM ; [facility] Dysmenorrhea PROBLEM VISIT with CHRIS L PALCHE FF DO 04/28/2010 Last Documented On 0 9:49PM ; [facility] Myalgia and myositis PROBLEM VISIT with CHRIS Tammy Morton ALCHEFF DO 04/28/2010 Last Documented On 0 9:49PM ; [facility] 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 PROBLEM VISIT with CHRIS Munoz PALCHEFF DO 04/28/2010 Last Documented On 0 9:49PM ; [facility] Osteopathic lesions of the l umbar region PROBLEM VISIT with CHRIS Munoz PALCHEFF DO 04/28/2010 Last Documented On 0 9:49PM ; [facility] Osteopathic lesions of the rib cage PROBLEM VISI T with CHRIS L PALCHEFF DO 04/28/2010 Last Documented On 0 9:49PM ; [facility] Osteopathic lesions of the s acral region PROBLEM VISIT with CHRIS L PALCHEFF DO 04/28/2010 Last Documented On 0 9:49PM ; [facility] Osteopathic lesions of the t horacic region PROBLEM VISIT with CHRIS Munoz PALCHEFF DO 04/28/2010 Last Documented On 0 9:49PM ; [facility] Urethritis PROBLEM VISIT with CHRIS Munoz PALCHE FF DO 04/28/2010 Last Documented On 0 9:49PM ; [facility] Arthralgia PROBLEM VISIT with CHRIS Munoz PALCHE FF DO 12/27/2009 Last Documented On 0 3:26PM ; [facility] Sprain of the right first CMC joint PROBLEM VISI T with CHRIS Munoz PALCHEFF DO 12/27/2009 Last Documented On 0 3:26PM ; [facility] Tendonitis PROBLEM VISIT with CHRIS Munoz PALCHE FF DO 12/27/2009 Last Documented On 0 3:26PM ; [facility] Acute urinary retention GENERAL OFFICE VISIT wit h CHRIS YAOFF DO 11/09/2009 Last Documented On 0 2:32PM ; [facility] Overflow incontinence GENERAL OFFICE VISIT with CHRIS Munoz PALCHEFF DO 11/09/2009 Last Documented On 0 2:32PM ; [facility] Primary nocturnal enuresis GENERAL OFFICE VISIT with CHRIS Munoz PALCHEFF DO 11/09/2009 Last Documented On 0 2:32PM ; [facility] Instructions Includes: Instructions for all patient encounters Instructions to patient Go to the emergency room if condition worsens Last Documented On 3 4:24PM ; [facility] Watch for signs/symptoms of infection Last Documented On 3 4:24PM ; [facility] Intervention and counseling on cessation of tobacco use Last Documented On 3 4:02PM ; [facility] Watch for signs/symptoms of infection Last Documented On 2 2:16PM ; [facility] Intervention and counseling on cessation of tobacco use Last Documented On 2 1:57PM ; [facility] Watch for signs/symptoms of infection Last Documented On 1 2:57PM ; [facility] Return to the clinic if cond ition worsens or new symptoms arise Last Documented On 1 4:46PM ; [facility] Go to the emergency room if condition worsens Last Documented On 1 4:46PM ; [facility] Return to the clinic if cond ition worsens or new symptoms arise Last Documented On 1 9:25AM ; [facility] Return to the clinic if cond ition worsens or new symptoms arise Last Documented On 1 9:30AM ; [facility] Go to the emergency room if condition worsens Last Documented On 1 9:25AM ; [facility] Go to the emergency room if condition worsens Last Documented On 1 9:30AM ; [facility] Go to the emergency room if condition worsens Last Documented On 0 3:05PM ; [facility] Watch for signs/symptoms of infection Last Documented On 0 3:05PM ; [facility] Watch for signs/symptoms of infection, return to the clinic if seen Last Documented On 0 3:05PM ; [facility] Return to the clinic if cond ition worsens or new symptoms arise Last Documented On 8 8:54PM ; [facility] Go to the emergency room if condition worsens Last Documented On 6 9:42AM ; [facility] Return to the clinic if cond ition worsens or new symptoms arise Last Documented On 6 8:58PM ; [facility] Go to the emergency room if condition worsens Last Documented On 6 8:58PM ; [facility] Go to the emergency room if condition worsens Last Documented On 6 8:59PM ; [facility] Go to the emergency room if condition worsens Last Documented On 5 4:27PM ; [facility] Return to the clinic if cond ition worsens or new symptoms arise Last Documented On 0 11:36AM ; [facility] Education and Decision Aids were provided during visit for: Patient education about anti biotics: need to finish even if feeling better Last Documented On 9 2:48PM ; [facility] Patient education about anti biotics: need to finish even if feeling better Last Documented On 8 9:25AM ; [facility] Medical Equipment - Implanted Devices Includes: Current and historical Devices No Medical Equipment Recorded Medications Includes: Current and historical Medications Current Medications (continue as prescribed) Medrol 4 MG Oral Tablet Therapy Pack 11/29/2022 Provider: CHRIS PORRAS DO Diagnosis: Pain in unspecif ied joint as directed Last Documented On 11/29/2022 4:59PM By Neal Encinas ; [facility] Cyclobenzaprine HCl 10 MG Oral Tablet 11/15/2022 Provider: TORY ALVAREZ Diagnosis: Lumbago with sci atica, right side 1/2- 1 tablet po q8 hours pr n for back pain Last Documented On 3 2:16PM By Tory ALVAREZ ; [facility] Pantoprazole Sodium 40 MG Oral Tablet Delayed Release 09/27/2022 Provider: Diagnosis: Last Documented On 11/15/2022 2:05PM By Clover Slaughter MA ; [facility] Albuterol Sulfate HFA 108 (90 Base) MCG/ACT Inhalation Aerosol Solution 01/19/2022 Provider: TORY ALVAREZ Diagnosis: Acute bronchitis , unspecified as directed 2 puffs inhaled q4-6 hours prn Last Documented On 2 4:17PM By Tory ALVAREZ ; [facility] Omeprazole 20 MG Oral Capsule Delayed Release 07/25/2021 Provider: [facility] Diagnosis: Gastro-esophagea l reflux dis with esophagitis, without bleed 1 Capsule every morning Last Documented On 07/19/2022 1:56PM By Damaris THOMSON ; [facility] Norethin Seven-Eth Estrad-FE 1-20 MG-MCG Oral Tablet Provider: Diagnosis: Last Documented On 07/11/2021 2:25PM By Damaris Jordan Chris ; [facility] Past Medications on file predniSONE 20 MG Oral Tablet 11/15/2022 - 11/29/2022 Provider: TORY SANTIAGO COSMETIC CHEMIST-C Diagnosis: Lumbago with sciatica, right side as directed 2 tab po qd x 3 then 1 tab po qd x 3 Last Documented On 11/29/2022 4:00PM By Damaris THOMSON ; [facility] Azithromycin 500 MG Oral Tablet 02/16/2022 - 07/19/2022 Provider: EVELINE BORJAS [facility]- Diagnosis: Acute maxillary sinusitis, unspecified One tablet daily Last Documented On 07/19/2022 1:56PM By Damaris THOMSON ; [facility] Medrol 4 MG Oral Tablet Therapy Pack 02/16/2022 - 07/19/2022 Provider: EVELINE BORJAS [facility]- Diagnosis: Pleurisy as directed Last Documented On 07/19/2022 1:56PM By Damaris THOMSON ; [facility] predniSONE 20 MG Oral Tablet 01/19/2022 - 02/16/2022 Provider: TORY SANTIAGO COSMETIC CHEMIST-C Diagnosis: Acute bronchitis , unspecified as directed 2 tab po qd x 5 Last Documented On 02/16/2022 6:01PM By NICOLÁS BRYANT Chris ; [facility] Azithromycin 250 MG Oral Tablet 01/19/2022 - 02/16/2022 Provider: TORY SANTIAGO COSMETIC CHEMIST-Lois Diagnosis: Acute bronchitis , unspecified as directed take 2 tab po qd for 1 day then take 1 tab po qd for 4 days Last Documented On 02/16/2022 6:01PM By NICOLÁS BRYANT Chris ; [facility] Zofran 4 MG Oral Tablet 07/19/2021 - 02/16/2022 Provider: JUAN VÁSQUEZ [facility] COSMETIC CHEMIST-BC Diagnosis: Viral intestinal infection, unspecified 1 every 4 - 6 hours as needed Last Documented On 02/16/2022 6:01PM By NICOLÁS THOMSON ; [facility] Chlorzoxazone 500 MG Oral Tablet 03/27/2021 - 07/19/2021 Provider: CHRIS PORRAS DO Diagnosis: Myalgia, unspeci fied site as directed 1/2 to 1 tab q 6 hours prn Last Documented On 07/19/2021 2:58PM By TRICIA THOMSON ; [facility] Medrol 4 MG Oral Tablet Therapy Pack 03/27/2021 - 07/11/2021 Provider: CHRIS PORRAS DO Diagnosis: Low back pain as directed Last Documented On 07/11/2021 2:24PM By Damaris THOMSON ; [facility] Chlorzoxazone 500 MG Oral Tablet 03/23/2021 - 07/19/2021 Provider: CHRIS PORRAS DO Diagnosis: Myalgia, other s ite as directed 1/2 to 1 tab q 6 hours prn Last Documented On 07/19/2021 2:58PM By TRICIA THOMSON ; [facility] Azithromycin 250 MG Oral Tablet 09/02/2019 - 03/23/2021 Provider: TOAN FISH COSMETIC CHEMIST-C Diagnosis: Streptococcal pharyngitis as directed Take two tablets on day 1. Then, take one tablet on day 2-5 Last Documented On 03/23/2021 9:05AM By Crystal THOMSON ; [facility] Zithromax Z-Arnaldo 250MG Oral Tablet 04/13/2019 - 03/23/2021 Provider: CHRIS PORRAS DO Diagnosis: Streptococcal pharyngitis as directed Last Documented On 03/23/2021 9:05AM By Crystal THOMSON ; [facility] Chlorzoxazone 500MG Oral Tablet 02/13/2019 - 04/13/2019 Provider: CHRIS PORRAS DO Diagnosis: Segmental and so matic dysfunction of lumbar region as directed 1/2 to 1 tab q 6 hours prn Last Documented On 04/13/2019 1:58PM By LEANNE THOMSON ; [facility] Medrol 4MG Oral Tablet Therapy Pack 02/13/2019 - 04/13/2019 Provider: CHRIS PORRAS DO Diagnosis: Segmental and so matic dysfunction of lumbar region as directed Last Documented On 04/13/2019 1:54PM By LEANNE THOMSON ; [facility] Zithromax Z-Arnaldo 250MG Oral Tablet 06/10/2018 - 07/23/2018 Provider: CHRIS PORRAS DO Diagnosis: Acute pharyngiti s, unspecified as directed Last Documented On 07/23/2018 3:24PM By LEANNE THOMSON ; [facility] Zithromax Z-Arnaldo 250 MG Tablet 07/12/2016 - 06/10/2018 Provider: KUSH TOLBERT PA-C Diagnosis: Other acute sinu sitis Take as directed. Last Documented On 06/10/2018 9:11AM By LEANNE THOMSON ; [facility] Aldara 5 % Cream 05/02/2016 - 06/10/2018 Provider: CHRIS PORRAS DO Diagnosis: Other viral wart s apply to areas 2 times a wee k for 16 weeks. Leave on for 8 hrs, remove with mild soap and water. Wash hands before and after application Last Documented On 06/10/2018 9:11AM By LEANNE THOMSON ; [facility] Depo-Provera 150 MG/ML Suspension 05/01/2016 - 018 Provider: Diagnosis: Last Documented On 06/10/2018 9:11AM By LEANNE THOMSON ; [facility] Bactrim DS 800-160 MG Tablet 12/06/2015 - 05/01/2016 Provider: CHRIS PORRAS DO Diagnosis: Furuncle of trun k, unspecified One tablet twice a day Last Documented On 05/01/2016 3:16PM By TAMMY CRAWFORD CMA ; [facility] Zithromax Z-Arnaldo 250 MG Tablet 03/02/2015 - 12/06/2015 Provider: CHRIS PORRAS DO Diagnosis: ACUTE PHARYNGITI S as directed Last Documented On 12/06/2015 2:00PM By TRICIA THOMSON ; [facility] Mirena 20 MCG/24HR Intrauterine device 03/02/2015 - Provider: Diagnosis: Last Documented On 05/01/2016 3:22PM By TAMMY CRAWFORD CMA ; [facility] predniSONE 20 MG OR TABS 03/22/2014 - 12/06/2015 Provi oliverio: NATHANIEL Win [facility] Diagnosis: PATIENT IS TO START TOMORROW MORNING. SHE IS TO TAKE 3 (20MG) TABS DAILY X 5 DAYS THEN STOP. TAKE WITH FOOD. Last Documented On 12/06/2015 2:00PM By TRICIA THOMSON ; [facility] Parafon Forte DSC 500 MG OR TABS 04/28/2010 - 12/06/2015 Provider: CHRIS PORRAS DO Diagnosis: MYALGIA AND MYOS ITIS NOS PRN SPASM Last Documented On 12/06/2015 2:00PM By TRICIA THOMSON ; [facility] Bactrim DS 800-160 MG OR TABS 04/28/2010 - 12/06/2015 Provider: CHRSI PORRAS DO Diagnosis: URETHRITIS NOS Last Documented On 12/06/2015 2:00PM By TRICIA THOMSON ; [facility] Medrol (Arnaldo) 4 MG OR TABS 12/27/2009 - 12/06/2015 Provider: CHRIS PORRAS DO Diagnosis: SPRAIN CARPOMETA CARPAL Last Documented On 12/06/2015 2:00PM By TRICIA THOMSON ; [facility] Medications Administered Includes: Administered Medications in patient's chart No Administered Medications Recorded Results Includes: Results from 02/19/2024 through 02/18/2025 No Results Recorded For Specified Dates History of Present Illness History of Present Illness not supported for this document type No History of Present Illness Recorded Social History Description Last Updated Former smoker 11/29/2022 Last Documented On 3 8:36PM ; [facility] Tobacco non-user 11/29/2022 Last Documented On 3 8:36PM ; [facility] Smoking status : Never smoker 11/29/2019 Last Documented On 0 3:06PM ; [facility] Currently in school 04/27/2009 Last Documented On 9 12:46PM ; [facility] Lives with parents 04/27/2009 Last Documented On 9 12:46PM ; [facility] Medical History Includes: Medical History in patient's chart Description Last Updated LMP: 07/15/2022 pt not regular due to BC pills 07/19/2022 Last Documented On 2 1:18PM ; [facility] No recent change in medical history 06/22 Last Documented On 1 4:30PM ; [facility] Taking OTC pain medication /fever. Using Tylenol 11/29/2019 Last Documented On 0 3:06PM ; [facility] Taking OTC medications 09/02/2019 Last Documented On 9 4:01PM ; [facility] History of length at : 20 in 2008 Last Documented On 9 12:46PM ; [facility] Patient's weight: 5 lbs 14 oz 05/2009 Last Documented On 9 12:46PM ; [facility] Vaginal delivery 04/27/2009 Last Documented On 9 12:46PM ; [facility] Family History Includes: Family History in patient's chart Description Last Updated Family history of Cancer 07/19/2022 Last Documented On 2 1:18PM ; [facility] Review of Systems Review of Systems not supported for this document type No Review of Systems Recorded Mental Status Description Oriented to time, place, and person Functional Status No Functional Status Recorded Physical Exam Physical Exam not supported for this document type No Physical Exam Recorded Immunizations Includes: Immunizations in patient's chart Vaccine Dose # Date Site Reaction(s) Status Source COVID-19 Pfizer 1 07/04/2021 Left Arm Complete (Re ported) Patient Last Documented On 3 4:01PM ; [facility] COVID-19 Pfizer 2 08/10/2021 Left Arm Complete (Re ported) Patient Last Documented On 3 4:01PM ; [facility] Tdap (Boostrix) 1 09/22/2019 Left Deltoid Complete (Reported) Patient Last Documented On 3 4:01PM ; [facility] Allergies Includes: Active, inactive, and resolved Allergies Substance Type Reaction Onset Date Resolved Date Statu s Penicillins Allergy 04/27/2009 Active Last Documented On 3 4:01PM ; [facility] Insurance Includes: Active Insurance Policies Plan Name Member ID Group # Subscriber Relationship Effect thuan Dates 1 - [facility] [id number] [employer] Clinical Notes Includes: Signed Clinical Notes starting from 11/09/2022 No Clinical Notes Recorded
--- OUTSIDE RECORDS SUMMARY | 2025-02-18 08:22 | XMS_ITS | Encounter Summary ---
Author Organization [facility] Healthcare Address [address] [place] [address] Care Team Providers Care Renewable Energy Broker Name Role Phone Tati [place] NP Primary Care Provider [phone] Encounter Details Date Type Department Care Team (Late st Contact Info) Description 01/08/2025 Results Follow-Up [facility] [address] [place] [address] Amber Barajas NP [address] [place] [address] Social History Tobacco Use Types Packs/Day Years Used Date Smoking Tobacco: Every Day Cigarettes Smokeless Tobacco: Never Comments:Smoked half a pack of cigarettes per day from 2009 until 12/14 Passive Exposure Comments:not in 24 hr Alcohol Use Standard Drinks/Week Comments Not Currently 0 (1 standard drink = 0.6 oz pur e alcohol) [facility] Utilities Answer Date Recorded In the past 12 months has [facility] [employer], gas, oil, or water [employer] threatened to shut off services in your [...] How often do you attend chur or anabaptism services? Never 08/27/2023 Do you belong to any clubs o r organizations such as mormonism groups, unions, fraternal or athletic groups, or school groups? No 08/27/2023 How often do you attend meet ings of the clubs or organizations you belong to? Never 08/27/2023 Are you , , di vorced, , never , or living with a partner? 08/27/2023 AUDIT-C Answer Date Recorded Q1: How often do you have a drink containing alcohol? Never 01/11/2025 Q2: How many drinks containi ng alcohol do you have on a typical day when you are drinking? Patient does not drink Q3: How often do you have si x or more drinks on one occasion? Never 01/11/2025 Overall Financial Resource Strain (CARDIA) Answe r Date Recorded How hard is it for you to pa y for the very basics like food, housing, medical care, and heating? Not hard at all 08/27/2023 PHQ-2 Answer Date Recorded PHQ-2 Total Score (If total score is 3 or more points, staff should administer the PHQ-9) 0 12/15/2024 [facility] - Occupational Stress [...] place to sleep or slept in a residential (including now)? No 08/27/2023 Personal Safety Answer Date Recorded Have you ever been in or are you currently in a harmful physical or emotional relationship or is someone making you feel afraid or unsafe? Denies 08/05/2024 Comments No Sex and Gender Information Value Date Recorded Sex Assigned at Not on file Legal Sex Female 8:01 AM [employer] Gender Identity Not on file Sexual Orientation Not on file documented as of this encounter Functional Status * Audit-C Score Answer Date of Assessment Author 0 01/11/2025 1:13 PM Josh Wallace RN * Question Answer Date of Assessment Author Q1: How often do you have a drink containing alcohol? Never 01/11/2025 1:13 PM Amy Wallace RN Q2: How many drinks containing alcohol do you have on a typical day when you are drinking? Patient does not drink 01/11/2025 1:13 PM Amy Wallace RN Q3: How often do you have six or more drinks on one occasion? Never 01/11/2025 1:13 PM Amy Wallace RN documented as of this encounter Plan of Treatment Not on file documented as of this encounter Goals Goal Patient Goal Type Associated Problems Recent Progress Patient-Stated? Author CCM Chronic Pain Care Plan Chronic Care Management On track(2024 8:49 AM CDT) Amber Jarrell RN Note: Problem: Chronic Pain Goals: 1. [...] Date Last Indicated Resolved Time COVID: Suspected 01/21/2025 01/21/2025 01/21/2025 2:44 PM CDT documented as of this encounter Care Teams Renewable Energy Broker Relationship Specialty Start Date End Date Tati [place] NP PCP - General Family Medicine 08/27/23 documented as of this encounter
--- OUTSIDE RECORDS SUMMARY | 2025-02-18 08:22 | XMS_ITS | Referral Summary ---
Author Organization [facility] Address [address] [place] [address] Care Team Providers Care Orthopaedic Nurse Name Role Phone Tati Henry NP Primary Care Provider [phone] Encounters Date Type Department Care Team Description 02/02/2025 Telephone [facility] [address] [place] [address] Amber Barajas NP 01/28/2025 Orders Only [facility] [address] [place] [address] Advanced Medicine [address] [place] [address] Jimy Pantoja MD Spondylosis of cervical region without myelopathy or radiculopathy (Primary Dx); Cervical spondylosis without myelopathy; Chronic neck pain; Cervical radiculopathy 01/28/2025 8:36 AM CDT - 01/28/2025 11:59 PM CDT Hospital Encounter [facility] Advanced [facility] [address] [place] [address] Advanced Medicine [address] [place] [address] Jimy Pantoja MD Cervical radiculopathy Discharge Disposition: Discharge to home or self care 01/27/2025 Orders Only [facility] [address] [place] [address] Advanced Medicine [address] [place] [address] Jimy Pantoja MD Cervical radiculopathy (Primary Dx) 01/26/2025 Telephone [facility] [address] [place] [address] Tati Henry NP Medical Question/Miscellaneou s 01/25/2025 Telephone [facility] [address] [place] [phone] Jimy Pantoja MD [facility] Preprocedure 01/23/2025 Results Follow-Up [facility] at [address] [place] [phone] Meli Stanford NP 01/21/2025 2:54 PM CDT - 01/21/2025 11:59 PM CDT Hospital Encounter [address] [address] Viral syndrome Discharge Disposition: Discharge to home or self care 01/21/2025 2:30 PM CDT Office Visit [facility] [address] [place] [phone] Ashely Poole NP Viral syndrome (Primary Dx) 01/14/2025 Results [facility]-Up [facility] [address] [phone] Amber Barajas NP Pain in left foot (Primary Dx); Bilateral leg and foot pain 01/11/2025 12:56 PM CDT - 01/11/2025 11:59 PM CDT Hospital Encounter [facility] [address] [place] [phone] Jimy Pantoja MD Cervical radiculopathy (Primary Dx) Discharge Disposition: Discharge to home or self care 01/08/2025 12:36 PM CDT - 01/08/2025 11:59 PM CDT Hospital Encounter [facility] [address] [place] [address] Pain in left foot Discharge Disposition: Discharge to home or self care 01/08/2025 Results [facility]-Up [facility] [address] [phone] Amber Barajas NP 01/07/2025 12:10 PM CDT Lab [facility] [address] [place] [phone] Multiple joint pain 01/05/2025 5:30 PM CDT Office Visit [facility] at [address] [place] [phone] Brenda Jones NP Bilateral leg and foot pain (Primary Dx) 12/16/2024 Results Follow-Up [facility] [address] [phone] Amber Barajas NP 12/15/2024 1:30 PM TIPPLE TENDER Lab [facility] [address] [place] [phone] Diabetes mellitus screening; Fatigue, unspecified type; Screening for lipid disorders; Vitamin D deficiency 12/15/2024 1:00 PM TIPPLE TENDER Office Visit [facility] [address] [phone] Amber Barajas NP Bilateral leg and foot pain (Primary Dx); Vitamin D deficiency; Fatigue, unspecified type; Diabetes mellitus screening; Screening for lipid disorders; Class 1 obesity due to excess calories without serious comorbidity with body mass index (BMI) of 30.0 to 30.9 in adult 11/25/2024 Telephone [facility] [address] [place] [phone] Genesis Salas MA 11/25/2024 12:20 PM TIPPLE TENDER - 11/25/2024 11:59 PM TIPPLE TENDER Hospital Encounter [facility] [address] [place] [address] Subacute cough Discharge Disposition: Discharge to home or self care 11/24/2024 6:15 PM TIPPLE TENDER Office Visit [facility] [address] [place] [phone] Brenda Jones NP Acute serous otitis media of left ear, recurrence not specified (Primary Dx); Subacute cough 11/22/2024 6:45 PM TIPPLE TENDER Office Visit [facility] [place] [address] [place] [phone] Gerda Bean, MELANIA Viral URI with cough (Primary Dx) from Last 3 Months Allergies Active Allergy Reactions Criticality Noted Date [...] 12/15/2024 Assessment & Plan (12/15/2024 1:19 PM TIPPLE TENDER): A1C ordered due to excessive thrist, fatigue, and potential neuropathy in feet. Will continue to monitor. Fatigue 12/15/2024 Assessment & Plan (12/15/2024 1:23 PM TIPPLE TENDER): Vitamin B 12 and D along with Iron profile ordered as well. Will continue to monitor. Screening for lipid disorders 12/15/2024 Assessment & Plan (12/15/2024 1:20 PM TIPPLE TENDER): Lipid panel ordered. Will continue to monitor. Bilateral leg and foot pain 12/15/2024 Assessment & Plan (12/15/2024 1:23 PM TIPPLE TENDER): Will trial Requip and Medrol dose pack. Differentials include diabetes with neuropathy, polyneuropathy, plantar fasciitis, or other causes of lower leg and feet swelling. Vitamin D deficiency 12/15/2024 Assessment & Plan (12/15/2024 1:23 PM TIPPLE TENDER): Feel supplement not working anymore still having fatigue. Will check levels. Class 1 obesity due to exces s calories without serious comorbidity with body mass index (BMI) of 30.0 to 30.9 in adult 12/15/2024 Assessment & Plan (12/15/2024 1:23 PM TIPPLE TENDER): Encouraged heart healthy diet and lifestyle. Advised [...] 12/18/2023 Assessment & Plan (12/18/2023 11:41 AM TIPPLE TENDER): Hearing test Continue to work with Dentist Nasal saline spray (Simply saline, Little Remedies, [place], [place]) 2 second sprays or 2 squeezes into each nostril while looking down over the sink, do not need to sniff in 2-3 times Flonase 2 sprays into each nostril while looking down over the sink, do not sniff in or blow nose after use for at least 30 minutes daily Referred otalgia of both ears 12/18/2023 Assessment & Plan (12/18/2023 11:41 AM TIPPLE TENDER): Hearing test Continue to work with Dentist Nasal saline spray (Simply saline, Little Remedies, [place], [place]) 2 second sprays or 2 squeezes into each nostril while looking down over the sink, do not need to sniff in 2-3 times Flonase 2 sprays into each nostril while looking down over the sink, do not sniff in or blow nose after use for at least 30 minutes daily Hair loss 11/06/2023 Assessment & Plan (11/06/2023 9:23 AM TIPPLE TENDER): Check TSH Numbness and tingling of both upper extremities 11/06/2023 Assessment & Plan (11/20/2023 5:14 PM TIPPLE TENDER): Not well controlled, continues to have numbness, worse in right arm; mostly occurs at elbow, ulnar distribution; including middle finger Waiting to get EMG for source of symptoms Assessment & Plan (11/06/2023 9:23 AM TIPPLE TENDER): Had EMG in December 2022; has not gotten results yet States pain has worsened Repeat EMG ordered Inflammation of left eye 10/22/2023 Assessment & Plan (10/31/2023 11:00 AM TIPPLE TENDER): H/o shingles per chart with likely V2 [...] 08/27 Assessment & Plan (08/27/2023 11:33 AM TIPPLE TENDER): Referral to [facility] placed Chronic bilateral low back pain with bilateral s ciatica 08/27/2023 Assessment & Plan (11/06/2023 9:26 AM TIPPLE TENDER): Increase Meloxicam 15 mg daily Not getting relief with PT Assessment & Plan (09/25/2023 11:12 AM TIPPLE TENDER): Continued back pain; started PT yesterday Start Meloxicam 7.5 mg daily and Skelaxin 400 mg BID PRN Assessment & Plan (08/27/2023 11:33 AM TIPPLE TENDER): Patient states she had a previous back injury; states she believes her toddler through her back out recently. She was seen in beginning of July and was prescribed steroids and Flexeril. She states that the pain is still there and it causes sciatica X-ray ordered; discussed potential need for MRI and/or neurosurgery consult Cervical spine pain 08/27/2023 Assessment & Plan (11/20/2023 5:13 PM TIPPLE TENDER): Continues to have spine and thoracic back pain; thoracic back pain may be pustule; patient given home exercises to help improve posture Continue meloxicam 15 mg daily, gabapentin 100 mg t.i.d.; transition from Skelaxin to methocarbamol 500 mg q.i.d. p.r.n. 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 She also has a history of IBS-C Referral to [facility] gastrointestinal clinic Anxiety and depression 08/27/2023 Assessment & Plan (02/17/2024 3:22 PM CDT): Chronic, stable, well controlled Continue Sertraline 25 mg daily and BuSpar 10 mg TID PRN Assessment & Plan (11/06/2023 9:27 AM TIPPLE TENDER): Stable, generally well controlled Continue Zoloft 25 mg daily Increase BuSpar 10 mg TID PRN Follow up 2 months Assessment & Plan (09/25/2023 11:13 AM TIPPLE TENDER): Stable; depression well controlled, increased anxiety Continue Zoloft 25 mg daily; add BuSpar 5 mg TID PRN Follow up 4 weeks Assessment & Plan (08/27/2023 11:29 AM TIPPLE TENDER): Patient states she is had a history [...] (11/14/2022): Added automatically from request for surgery [id number] Heartburn 11/14/2022 08/27/2023 Overview (11/14/2022): Added automatically from request for surgery [id number] Weight loss 11/14/2022 08/27/2023 Overview (11/14/2022): Added automatically from request for surgery [id number] Abdominal bloating 11/14/2022 Overview (11/14/2022): Added automatically from request for surgery [id number] Rectal pain 10/25/2022 08/27/2023 Overview (10/25/2022): Added automatically from request for surgery [id number] Rectal bleeding 10/25/2022 08/27/2023 Overview (10/25/2022): Added automatically from request for surgery [id number] Immunizations Immunization Administration Dates Next Due Influenza, Quadrivalent, Spl it, Preservative Free, Intramuscular 10/10/2019(Deferred: Patient Refused) Influenza, Trivalent, Preser vative Free, Intramuscular 08/31/2024 Influenza, Unspecified 08/28/2024(Deferr ed: Patient Refused),08/05/2024(Deferred: Patient Refused),07/30/2023(Deferred: Patient Refused),07/29/2023(Deferred: Patient Refused),07/21/2023(Deferred: Patient Refused),06/21/2023(Deferred: Patient Refused),07/21/2022(Deferred: Patient Refused) PPD TEST 12/19/2020 Tdap 09/22/2019 Social History Tobacco Use Types Packs/Day Years Used Date Smoking Tobacco: Former Cigarettes Smokeless Tobacco: Never Tobacco Cessation:Counseling Given: Not Answered Comments:Smoked half a pack of cigarettes per day from 2009 until 12/14 Passive Exposure Comments:not in 24 hr Alcohol Use Standard Drinks/Week Comments Not Currently 0 (1 standard drink = 0.6 oz pur e alcohol) [facility] Utilities Answer Date Recorded In the past 12 months has e [employer], gas, oil, or water [employer] threatened to shut off services in your [...] often do you attend chur ch or restorationism services? Never 08/27/2023 Do you belong to any clubs o r organizations such as hinduism groups, unions, fraternal or athletic groups, or [...] staff should administer the PHQ-9) 0 12/15/2024 [facility] - Occupational Stress [...] place to sleep or slept in a fci (including now)? No 08/27/2023 Personal Safety Answer Date Recorded Have you ever been in or are you currently in a harmful physical or emotional relationship or is someone making you feel afraid or unsafe? Denies 08/05/2024 Comments No Sex and Gender Information Value Date Recorded Sex Assigned at Not on file Legal Sex Female 8:01 AM TIPPLE TENDER Gender Identity Not on file Sexual Orientation [...] 01/28/2025 8:39 AM CDT Plan of Treatment Not on file Goals Goal Patient Goal Type Associated Problems Recent Progress Patient-Stated? Author CCM Chronic Pain Care Plan Chronic Care Management On track(2024 8:49 AM CDT) Amber Jarrell, RN Note: Problem: Chronic Pain Goals: 1. [...] joint pain EGFR Routine 12/15/2024 1:21 PM TIPPLE TENDER Diabetes mellitus screening IRON PROFILE W/ IBC Routine 12/15/2024 1 :21 PM TIPPLE TENDER Fatigue, unspecified type VITAMIN D 25 HYDROXY Routine 12/15/2024 1:21 PM TIPPLE TENDER Vitamin D deficiency COMPREHENSIVE METABOLIC PANEL Routine 12/15/2024 1:21 PM TIPPLE TENDER Diabetes mellitus screening LIPID PANEL Routine 12/15/2024 1:21 PM TIPPLE TENDER Screening for lipid disorders VITAMIN B12 Routine 12/15/2024 1:21 PM TIPPLE TENDER Fatigue, unspecified type HEMOGLOBIN A1C Routine 12/15/2024 1:21 PM TIPPLE TENDER Diabetes mellitus screening XR CHEST PA LATERAL 2 VIEWS Schedule PARAM, Read PARAM (Appt Today, Awaiting Results) 11/25/2024 12:28 PM TIPPLE TENDER Subacute cough POC INFLUENZA A/B, COVID-19 ANTIGEN Routine 11/22/2024 7:15 PM TIPPLE TENDER Viral URI with cough HEPATITIS C ANTIBODY Routine 07/13/2024 12:21 PM CDT Encounter for hepatitis C screening test for low risk patient from Last 3 Months or Most Recently Relevant to Health Maintenance Results * Imaging Cervical/Thoracic Epidural Steroid INJ ([id number]) (01/28/2025 10:13 AM CDT) Narrative [facility] - 01/28/2025 10:13 AM CDT The images from this study are not interpreted by Radiology. Please refer to the physician's procedure / OR operative note. us Jimy Addison MD IMG PAIN MGMT PROCEDU RES Final Result [facility] * Throat culture Throat (01/21/2025 5:41 PM CDT) Report Final Report: No growth of pathogens. Comment:Testing performed by : [facility], [address] [place]., [address] Throat 01/21/2025 5:41 PM CDT 01/22/2025 6:01 AM CDT Narrative [facility] - 01/23/2025 1:58 PM CDT Testing performed by [facility] Microbiology Laboratory ([phone]). Ashely Poole PROCESS ENGINEERING TECHNICIAN LAB MICROBIOLOGY - GENERAL ORD ERABLES Final Result Performing Organization Address City/[facility]/ZIP Co de Phone Number [facility] [address] [place] [address] * POC Influenza A/B, COVID-19 antigen (01/21/2025 2:43 PM CDT) [facility] Influenza A Ag, POC Negative Negative [facility] Influenza B Ag, POC Negative [facility] COVID-19 Ag POC Presumptive Negative Presumptive Negative, Invalid [facility] CC [facility] Nasal 01/21/2025 2:43 PM CDT Ashely Poole PROCESS ENGINEERING TECHNICIAN POINT OF CARE TEST ORDERABLES Final Result Performing Organization Address City/[facility]/ZIP Co de Phone Number [facility] [address] [place] [address], [facility] * POCT rapid strep A (01/21/2025 2:43 PM CDT) Pathologist [facility] Rapid Strep A, POC Negative Negative Swab 01/21/2025 2:43 PM CDT Ashely Poole PROCESS ENGINEERING TECHNICIAN POINT OF CARE TEST ORDERABLES Final Result [...] John Miranda M.D. MF: SIRI Report ID: [id number] Reading Location: [id number] Procedure Note John Miranda MD - 01/13/2025 [...] John Miranda M.D. MF: SIRI Report ID: [id number] Reading Location: [id number] us Amber Barajas NP IMG XR PROCEDURES [...] last revised on 2020. Testing performed by: [facility], [address] [place] [address]., [address] Blood 01/07/2025 12:0 8 PM CDT 01/07/2025 7:52 PM CDT Amber Barajas NP LAB BLOOD ORDERABLES Final Re sult Performing Organization Address City/[facility]/ZIP Co de Phone Number [facility] ([place]) [address] [place] [address] [place] [address] * Erythrocyte sedimentation rate (01/07/2025 12:08 PM CDT) Pathologist [facility] Erythrocyte sedimentation rate 9 1 - 20 mm/hr Comment:Testing performed by : [address], [address] Blood 01/07/2025 12:0 8 PM CDT 01/07/2025 5:42 PM CDT Amber Barajas NP LAB BLOOD ORDERABLES Final Re sult Performing Organization Address City/[facility]/ZIP Co de Phone Number [facility] RU[facility] ([place]ID[place]AN) [address] [place] [address] [place] [address] * Rheumatoid factor (01/07/2025 12:08 PM CDT) Pathologist [facility] Rheumatoid factor, quant 10 <=15 IUnits/mL Comment:Testing performed by : [address], [address] Blood 01/07/2025 12:0 8 PM CDT 01/07/2025 5:42 PM CDT Amber Barajas NP LAB BLOOD ORDERABLES Final Re sult [facility] ([place]ID[place]) 1 [facility] [place] [address] * (ABNORMAL) CRP (acute phase) (01/07/2025 12:08 PM CDT) CRP 18.3(H) <=10.0 mg/L Comment:Testing performed by : [facility], [address] [place] [address], [address] Blood 01/07/2025 12:0 8 PM CDT 01/07/2025 5:42 PM CDT Amber Barajas NP LAB BLOOD ORDERABLES Final Re sult Performing Organization Address City/[facility] Co de Phone Number [facility] (WID[place]AN) [address] [place] [address] * eGFR (12/15/2024 1:21 PM TIPPLE TENDER) eGFR >90 >=60 mL/min/1. 73 m2 Comment: [...] was last reviewed 2021. Testing performed by: [facility], [address] [place] [address]., [address] Blood 12/15/2024 1:21 PM TIPPLE TENDER 12/15/2024 7:32 PM TIPPLE TENDER Amber Barajas NP LAB BLOOD ORDERABLES Final Re sult Performing Organization Address [facility] Co de Phone Number [facility] (MARY) 1 [facility] Department [place] [address] * (ABNORMAL) Iron profile w/ IBC (12/15/2024 1:21 PM TIPPLE TENDER) Pathologist [facility] Iron 55 35 - 145 mcg/dl Comment:Testing performed by : [address], [address] TIBC 326 250 - 400 mcg/dL [facility] RUBIO (MARY) Comment:Testing performed by : [facility], [address] [place] [address], [id number] Transferrin saturation 17(L) 20 - 50 % [facility] RUBIO (MARY) Comment:Testing performed by : [address] [id number] Blood 12/15/2024 1:21 PM TIPPLE TENDER 12/15/2024 6:51 PM TIPPLE TENDER Amber Barajas NP LAB BLOOD ORDERABLES Final Re sult Performing Organization Address [facility] Co de Phone Number BE[facility] (MARY) 1 [facility] [place] [address] * Vitamin D 25 hydroxy (12/15/2024 1:21 PM TIPPLE TENDER) Vitamin D 25-OH 45 30 - 80 ng/mL Comment:Testing performed by : [address], [address] Blood 12/15/2024 1:21 PM TIPPLE TENDER 12/15/2024 6:51 PM TIPPLE TENDER Amber Barajas NP LAB BLOOD ORDERABLES Final Re sult Performing Organization Address City/[facility]/ZIP Co de Phone Number [facility] RUBIO (MARY) 1 [facility] [place] [address] * Hemoglobin A1c (12/15/2024 1:21 PM TIPPLE TENDER) Hgb A1C 5.5 4.0 - 5.6 % Comment:Testing performed by : [facility], [address] [place] [address]., [address] Estimated Average Glucose 111 mg/dL [facility] RUBIO (WIDEMAN) Comment: The ADA recommends reporting an estimated Average Glucose (eAG) with all Hemoglobin A1c results using the equation derived from a study of 507 normal and diabetic adults. Minority populations were underrepresented and children were not included. (Diabetes Care 31:2132-7216, 2008). The eAG is not equivalent to a fasting glucose. Testing performed by: [facility], [address] [place] [address]., [id number] Blood 12/15/2024 1:21 PM TIPPLE TENDER 12/15/2024 6:51 PM TIPPLE TENDER Result [facility] Amber Barajas NP LAB BLOOD ORDERABLES Final Re sult Performing Organization Address [facility] Co de Phone Number BEKAH RUBIO (WIDEMAN) 1 [facility] [place] [address] * Vitamin B12 (12/15/2024 1:21 PM TIPPLE TENDER) Vitamin B12 235 230 - 1,250 pg/mL Comment:Testing performed by : [facility], [address] [place] [address]., [address] Blood 12/15/2024 1:21 PM TIPPLE TENDER 12/15/2024 6:51 PM TIPPLE TENDER Amber Barajas NP LAB BLOOD ORDERABLES Final Re sult [facility] RUBIO (WID[place]AN) 1 [facility] [place] [address] * (ABNORMAL) Lipid panel (12/15/2024 1:21 PM TIPPLE TENDER) Cholesterol 205(H) 30 - 199 mg/dL Comment: [...] last revised on 2018. Testing performed by: [facility], [address] [place] [address]., [address] Triglycerides 106 <=149 mg/dL [facility] RUBIO (MARY) [...] last revised on 2018. Testing performed by: [facility], [address] [place] [address]., [address] HDL 49 >=40 mg/dL [facility] RUBIO (MARY) Comment: Interpretive Data [...] last revised on 2018. Testing performed by: [facility], [address] [place] [address]., [address] LDL, calculated 137(H) <=129 mg/dL BEKAH RUBIO [...] 3. Quoc Win et al. EDE Cardiol. 2020 February 18;5(5):540-548. doi: 10.1001/jamacardio.2020.0013 Current Interpretive Data was last revised on 2024. Testing performed by: [address] [address] Non-HDL Cholesterol 156 mg/dL [facility] RUBIO (MARY) [...] last revised on 2018. Testing performed by: [facility], [address] [place] [address]., [address] Chol/HDL ratio 4 STACY RUBIO (MARY) Comment:Testing performed by : [facility], [address] [place] [address]., [address] Blood 12/15/2024 1:21 PM TIPPLE TENDER 12/15/2024 6:51 PM TIPPLE TENDER Amber Barajas PROCESS ENGINEERING TECHNICIAN LAB BLOOD ORDERABLES Final Re sult [facility] RUBIO ([place]AN) 1 [facility] Department [place] [address] * (ABNORMAL) Comprehensive metabolic panel (12/15/2024 1:21 PM TIPPLE TENDER) Sodium 139 135 - 145 mmol/L Comment:Testing performed by : [facility], [address] [place] [address], [address] Potassium, pl 3.7 3.3 - 4.9 mmol/L [facility] ([facility]) Comment:Testing performed by : [facility], [address] [place] [address], [address] Chloride 101 97 - 110 mmol/L [facility] ([facility]) Comment:Testing performed by : [facility], [address] [place] [address], [address] CO2 21(L) 22 - 32 mmol/L [facility] ([facility]) Comment:Testing performed by : [facility], [address] [place] [address], [address] Anion gap 17(H) 2 - 15 mmol/L [facility] (MARY) Comment:Testing performed by : [address], [address] BUN 7 6 - 25 mg/dL [facility] ([facility]) Comment:Testing performed by : [address], [address] Creatinine 0.74 0.60 - 1.10 mg/dL [facility] ([facility]) Comment:Testing performed by : [address], [address] Glucose 132 70 - 199 mg/dL [facility] (MARY) Comment: Interpretive Data Fasting glucose [...] was last revised 2022. Testing performed by: [facility], [address] [place] [address]., [address] Calcium 9.2 8.5 - 10.3 mg/dL [facility] ([facility]) Comment:Testing performed by : [address], [address] Bilirubin, total 0.2 0.1 - 1.2 mg/dL [facility] (MARY) Comment:Testing performed by : [address], [address] Protein, pl 7.5 6.5 - 8.5 g/dL [facility] (MARY) Comment:Testing performed by : [address], [address] Albumin 4.1 3.5 - 5.0 g/dL [facility] ([place]) Comment:Testing performed by : [address], [address] Alk phos 62 40 - 130 Units/L [facility] ([place]) Comment:Testing performed by : [address], [address] ALT 13 7 - 45 Units/L [facility] ([place]) Comment:Testing performed by : [address], [address] AST 27 10 - 45 Units/L [facility] ([place]) Comment:Testing performed by : [address], [address] Blood 12/15/2024 1:21 PM TIPPLE TENDER 12/15/2024 6:51 PM TIPPLE TENDER us Amber Barajas NP LAB BLOOD ORDERABLES Final Re sult [facility] ([place]) 1 [facility] Department [place] [address] * XR Chest Pa Lateral 2 Views (11/25/2024 12:28 PM TIPPLE TENDER) Anatomical Region Laterality Modality Body, Chest N/A Computed Radiogr aphy 11/25/2024 1:47 PM TIPPLE TENDER Narrative 11/25/2024 1:47 PM TIPPLE TENDER EXAM DESCRIPTION: XR CHEST PA LATERAL 2 [...] signed by John VILLAGOMEZ: DAHLIA Report ID: [id number] Reading Location: [place] [address] Procedure Note John Cantu MD - 11/25/2024 [...] signed by John VILLAGOMEZ: DAHLIA Report ID: [id number] Reading Location: [place] [address] Brenda Jones PROCESS ENGINEERING TECHNICIAN IMG XR PROCEDURES Final Result * POC Influenza A/B, COVID-19 antigen (11/22/2024 7:15 PM TIPPLE TENDER) Influenza A Ag, POC Negative Negative [facility] Influenza B Ag, POC Negative Negative [facility] COVID-19 Ag POC Presumptive Negative Presumptive Negative, Invalid [facility] Nasal 11/22/2024 7:15 PM TIPPLE TENDER Gerda Bean NP POINT OF CARE TEST ORDER LOKESH Final Result Performing Organization Address [facility]/ZIP Co de Phone Number [facility] [address] [place] [address] * Hepatitis C antibody Blood (07/13/2024 12:21 PM CDT) Hep C Ab Nonreactive Nonreactive Comment: Interpretive [...] last revised on 2020. Testing performed by: [facility], [address] [place] [address]., [id number] Blood 07/13/2024 12:2 1 PM CDT 07/13/2024 5:06 PM CDT Tati Henry NP LAB MICROBIOLOGY - GENERAL ORDER LOKESH Final Result [facility] ([place]) 1 [facility] Department [place] [address] from Last 3 Months or Most Recently Relevant to Health Maintenance Insurance [employer] [facility] Address: [place] [address] [employer]: [place] [address] [employer] [facility]PPO Address: [facility] [id number] [place] [address] Advance Directives For more information, please contact: [phone] * Full Code (Latest Code Status on [...] 12:15 PM 10/03/2021 7:26 PM Care Teams Orthopaedic Nurse Relationship Specialty Start Date End Date Tati Henry NP PCP - General Family Medicine 08/27/23
--- OUTSIDE RECORDS SUMMARY | 2025-02-18 08:22 | XMS_ITS | Clinical Summary ---
Author Organization [facility] Address [address] [place] [address] Care Team Providers Care Sales Expert Name Role Phone Unavailable Primary Care Provider Unavailabl e Source Comments [facility],non-owned Affiliates and Associated Physician Practices is amultiple site organization consisting of ambulatory clinics and hospital sitesin [place], [place], [place]. This disclosure is being madepursuant to the Care Everywhere program and may not contain all information available regarding this patient. Last updated 18.[facility] Allergies Active Allergy Reactions Criticality Noted Date Comments Penicillins Anaphylaxis,Unknown High 04/27/2009 Medications * Be aware that medications may not be up to date on this document. Alwaysverify current medications with the patient. norethindrone-e thinyl estradiol (Loestrin 11/09) 1-20 MG-MCG tablet Take 1 (one) tablet by mouth once daily 2 Active nortriptyline (Pamelor) 25 MG capsule Take 1 (one) capsule by mouth at bedtime Active omeprazole (PriLOSEC) 40 MG capsule Take 1 (one) capsule by mouth daily before breakfast Active Social History Tobacco Use Types Packs/Day Years Used Date Smoking Tobacco: Never Assessed PHQ-2 Answer Date Recorded PHQ2 TOTAL SCORE 0 08/22/2022 Comments Unknown Sex and Gender Information Value Date Recorded Sex Assigned at Not on file Legal Sex Female 11:07 AM CDT Gender Identity Not on file Sexual Orientation Not on file Last Filed Vital Signs Vital Sign Reading Time Taken Comments Blood Pressure 120/78 08/22/2022 6:58 PM CDT Pulse 94 08/22/2022 6:58 PM CDT Temperature 36.7 C (98 F) 08/22/2022 6:58 PM CDT Respiratory Rate 18 08/22/2022 6:58 PM CDT Oxygen Saturation 100% 08/22/2022 6:58 PM CDT Inhaled Oxygen Concentration - - Weight 56.7 kg (125 lb) 08/22/2022 6:58 PM CDT Height 152.4 cm (5') 08/22/2022 6:58 PM CDT Body Mass Index 24.41 08/22/2022 6:58 PM CDT Plan of Treatment Health Maintenance Due Date Last Done Comments PAP SMEAR 1992 HIV SCREENING 2007 HEPATITIS C SCREENING 04/26/2010 DTAP/TDAP/TD VACCINES (1 - Tdap) 2011 HEPATITIS B VACCINE (1 of 3 - 19+ 3-dose series) 2011 COVID-19 VACCINE (2023-2 5 season) 2024 08/10/2021, 07/04/2021 DEPRESSION SCREENING 10/21/2024 08/22/2022 INFLUENZA VACCINE (Season Ended) 2025 ZOSTER VACCINE (1 of 2) 2042 HIB VACCINE Aged Out No longer eligi ble based on patient's age to complete this topic HPV VACCINE Aged Out No longer eligi ble based on patient's age to complete this topic MENINGOCOCCAL (Group B) VACCINE SHARED DECISION-MAKING Aged Out No longer eligible based on patient's age to complete this topic MENINGOCOCCAL GROUPS A/C/Y/W VACCINE Aged Out No longer eligible b ased on patient's age to complete this topic PNEUMOCOCCAL VACCINE Aged Out No long er eligible based on patient's age to complete this topic
--- OUTSIDE RECORDS SUMMARY | 2025-02-18 08:22 | XMS_ITS | Clinical Summary ---
Author Organization [facility] Address [address] [place] [address] Phone Care Team Providers Care Carbide Grinder Name Role Phone CHRIS CURTIS DO Primary Care Provider [phone] Reason for Visit and Chief Complaint The Chief Complaint is: pt c/o unsure when lmp is due to having very irregular bleeding, 2 wks ago was the last time pt bled. ~Pt c/o back pain, about 1 mo ago. Pt has tried muscle relaxer and steroid with little relief. ~Pt states that back and bialteral hip pain still present. Pt states that her back pain is where she has an old fx. ~Pt c/o right arm tingliness. ~pt has tried tylenol and ibuprofen OTC, hot baths, ice/heat Problems Includes: Problems addressed during this encounter and other active Problems No Active Problems Plan of Treatment - Return to the clinic if condition worsens or new symptoms arise - Last Documented On 12/02/2022 8:36PM ; [facility] - Go to the emergency room if condition worsens - Last Documented On 12/02/2022 8:36PM ; [facility] - Watch for signs/symptoms of infection - Last Documented On 12/02/2022 8:36PM ; [facility] - Medication instruction - Last Documented On 12/02/2022 8:36PM ; [facility] - Prednisone - Last Documented On 12/02/2022 8:36PM ; [facility] - Physical Therapy - Last Documented On 12/02/2022 8:36PM ; [facility] - Follow-up visit - Last Documented On 12/02/2022 8:36PM ; [facility] PLAN [Use for s.o.a.p. note free text]. - Last Documented On 12/02/2022 8:36PM ; [facility] She was prescribed with Medrol Dosepak Provided referral for physical therapy. She was advised to avoid lifting, bending, or twisting. - Last Documented On 12/02/2022 8:36PM ; [facility] Pending Tests Order Diagnosis Results Due Ordering Selene westfall In office procedures - *[facility] OMT 1-2 Areas Segmental and somatic dysfunction of lumbar region 12/13/22 CHRIS Tammy VERN DO Last Documented On 3 8:36PM ; [facility] Instructions to patient Go to the emergency room if condition worsens Last Documented On 3 4:24PM ; [facility] Watch for signs/symptoms of infection Last Documented On 3 4:24PM ; [facility] Intervention and counseling on cessation of tobacco use Last Documented On 3 4:02PM ; [facility] Assessments Includes: Assessments from this encounter Findings - Arthralgias of multiple sites [M25.50 - Pain in unspecified joint] - Last Documented On 12/02/2022 8:36PM ; [facility] - Sciatica [M54.30 - Sciatica, unspecified side] - Last Documented On 12/02/2022 8:36PM ; [facility] - Myalgia and myositis [M79.10 - Myalgia, unspecified site] - Last Documented On 12/02/2022 8:36PM ; [facility] - Somatic dysfunction of lumbar region [M99.03 - Segmental and somatic dysfunction of lumbar region] - Last Documented On 12/02/2022 8:36PM ; [facility] - Somatic dysfunction of sacrum [M99.04 - Segmental and somatic dysfunction of sacral region] - Last Documented On 12/02/2022 8:36PM ; [facility] Instructions Includes: Instructions from this encounter Instructions to patient Go to the emergency room if condition worsens Last Documented On 3 4:24PM ; [facility] Watch for signs/symptoms of infection Last Documented On 3 4:24PM ; [facility] Intervention and counseling on cessation of tobacco use Last Documented On 3 4:02PM ; [facility] Medical Equipment - Implanted Devices Includes: Current Devices No Medical Equipment Recorded Medications Includes: Medications discussed during this encounter and other current Medications Discontinued / Stopped on this date TORY ALVAREZ on 11/15/2022 predniSONE 20 MG Oral Tablet Provider: TORY ALVAREZ Diagnosis: Lumbago with sci atica, right side Last Documented On 11/29/2022 4:00PM By Damaris THOMSON ; [facility] New / Renewed during this visit CHRIS CURTIS DO on 11/29/2022 Medrol 4 MG Oral Tablet Therapy Pack Provider: CHRIS CURTIS DO 6 day supply: 1 each, 0 refills Diagnosis: Pain in unspecified joint as directed Pharmacy: [facility]) - [address] , [facility], [phone] - Last Documented On 11/29/2022 4:59PM By Neal Encinas ; [facility] Current Medications (continue as prescribed) Cyclobenzaprine HCl 10 MG Oral Tablet 11/15/2022 Provider: TORY ALVAREZ Diagnosis: Lumbago with sci atica, right side 1/2- 1 tablet po q8 hours pr n for back pain Last Documented On 3 2:16PM By Tory ALVAREZ ; [facility] Pantoprazole Sodium 40 MG Oral Tablet Delayed Release 09/27/2022 Provider: Diagnosis: Last Documented On 11/15/2022 2:05PM By Clover Slaughter MA ; [facility] Albuterol Sulfate HFA 108 (90 Base) MCG/ACT Inhalation Aerosol Solution 01/19/2022 Provider: TORY ALVAREZ Diagnosis: Acute bronchitis , unspecified as directed 2 puffs inhaled q4-6 hours prn Last Documented On 2 4:17PM By Tory ALVAREZ ; [facility] Omeprazole 20 MG Oral Capsule Delayed Release 07/25/2021 Provider: JUAN VÁSQUEZ PMHNP-BC PONDMAN-BC Diagnosis: Gastro-esophagea l reflux dis with esophagitis, without bleed 1 Capsule every morning Last Documented On 07/19/2022 1:56PM By Damaris THOMSON ; [facility] Norethin Seven-Eth Estrad-FE 1-20 MG-MCG Oral Tablet Provider: Diagnosis: Last Documented On 07/11/2021 2:25PM By Damaris THOMSON ; [facility] Medications Administered Includes: Administered Medications from this encounter No Administered Medications Recorded Vital Signs Includes: Vital Signs from this encounter Vital Name 11/29/2022 04:02P Blood Pressure Sitting L 118/74 BP Cuff Size Large Pulse Rate-Sitting (bpm) 100 Respiration Rate (breaths/min) 18 Height (in) 60 Weight (lb) 128 Body Mass Index 25 Body Surface Area 1.5 Oxygen Saturation (%) 98 Last Documented: On 11/29/2022 4:05PM ; [facility] Results Includes: Results discussed during this encounter No Results Recorded For Specified Dates History of Present Illness Includes: History of Present Illness from this encounter BRODY CORRAL is a 32 year old female. - Allergy list reviewed - Medication list reviewed - Pain - Musculoskeletal symptoms - No recent falls Patient is a pleasant 32-year-old female, who presents today with acute concern. She complains of back pain x1 month. She has tried muscle relaxer and steroid with mild relief but still has pain in her lower back and bilateral hips. She also has right arm tingling. She has tried OTC Tylenol, ibuprofen, hot baths, ice/heat without significant benefits. She has been doing exercises regularly. She denies any injury or trauma. She had an x-ray of lumbar spine from 03/2021, which showed old healed non-displaced fracture of right L1 transverse process. She also complains of irregular heavy menstrual bleeding and is not sure when her LMP was but last bled 2 weeks ago. Social History Description Last Updated Former smoker 11/29/2022 Last Documented On 3 8:36PM ; [facility] Tobacco non-user 11/29/2022 Last Documented On 3 8:36PM ; [facility] Smoking status : Never smoker 11/29/2019 Last Documented On 3 4:01PM ; [facility] Currently in school 04/27/2009 Last Documented On 3 4:01PM ; [facility] Lives with parents 04/27/2009 Last Documented On 3 4:01PM ; [facility] Procedures and Surgical History Includes: Procedures from this encounter Procedures Code Diagnosis Performing Provider Service L ocation Service Date plan of care reviewed and agreed to Last Documented On 3 4:24PM ; [facility] plan of care reviewed and agreed to by t he patient Last Documented On 3 4:24PM ; [facility] no high velocity / low ampli tude osteopathic manipulative treatment [facility]OLERATED [facility] Last Documented On 3 4:25PM ; [facility] muscle energy therapy [facility] Last Documented On 3 4:25PM ; [facility] intervention and 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 4000F Last Documented On 3 4:02PM ; [facility] use of tobacco assessment performed 1000F Last Documented On 3 4:02PM ; [facility] review of medications documented 1160F Last Documented On 3 4:02PM ; [facility] Pt encouraged to be compliant with curre nt treatment Last Documented On 3 4:24PM ; [facility] OMT - Soft tissue/muscle stretching tech niques [facility]ATED [facility] Last Documented On 3 4:25PM ; [facility] Medical History Includes: Medical History addressed during this encounter Description Last Updated LMP: 07/15/2022 pt not regular due to BC pills 07/19/2022 Last Documented On 3 4:01PM ; [facility] No recent change in medical history 06/22 Last Documented On 3 4:01PM ; [facility] Taking OTC pain medication /fever. Using Tylenol 11/29/2019 Last Documented On 3 4:01PM ; [facility] Taking OTC medications 09/02/2019 Last Documented On 3 4:01PM ; [facility] History of length at : 20 in 2008 Last Documented On 3 4:01PM ; [facility] Patient's weight: 5 lbs 14 oz 05/2009 Last Documented On 3 4:01PM ; [facility] Vaginal delivery 04/27/2009 Last Documented On 3 4:01PM ; [facility] Family History Includes: Family History addressed during this encounter Description Last Updated Family history of Cancer 07/19/2022 Last Documented On 3 4:01PM ; [facility] Review of Systems Includes: Review of Systems from this encounter Systemic: No edema. Head: No headache. Cardiovascular: No chest pain or discomfort. Pulmonary: No shortness of breath. Musculoskeletal: Musculoskeletal symptoms. Neurological: No dizziness. Mental Status Includes: Mental Status from this encounter Description Oriented to time, place, and person Functional Status Includes: Functional Status from this encounter No Functional Status Recorded Physical Exam Includes: Physical Exam from this encounter Immunizations Includes: Immunizations addressed during this encounter Vaccine Dose # Date Site Reaction(s) Status Source COVID-19 Pfizer 1 07/04/2021 Left Arm Complete (Re ported) Patient Last Documented On 3 4:01PM ; [facility] COVID-19 Pfizer 2 08/10/2021 Left Arm Complete (Re ported) Patient Last Documented On 3 4:01PM ; [facility] Tdap (Boostrix) 1 09/22/2019 Left Deltoid Complete (Reported) Patient Last Documented On 3 4:01PM ; [facility] Allergies Includes: Active Allergies Substance Type Reaction Onset Date Resolved Date Statu s Penicillins Allergy 04/27/2009 Active Last Documented On 3 4:01PM ; [facility] Encounters Encounter Provider Location Date Check-In Time Check-Out Time Diagnosis PROBLEM VISIT CHRIS CURTIS [facility] 11/29/19 23 3:58PM 4:24PM Myalgia and Myositis,Sciat ica,Arthralgia s Multiple Sites,Somatic Dysfunction of Lumbar Region,Somatic Dysfunction of Sacrum Insurance Includes: Active Insurance Policies Plan Name Member ID Group # Subscriber Relationship Effect thuan Dates 1 - [facility] [id number] OSCAR CORRAL Clinical Notes Includes: Clinical Notes from this encounter * Progress note Date Encounter Last Documented by 11/29/2022 PROBLEM VISIT Last documented on 12/02/2022; 8:36 PM, CHRIS CURTIS DO; [facility] Active Problems & Conditions - No Active Problems Chief Complaint The Chief Complaint is: Pt c/o unsure when lmp is due to having very irregular bleeding, 2 wks ago was the last time pt bled. Pt c/o back pain, about 1 mo ago. Pt has tried muscle relaxer and steroid with little relief. Pt states that back and bialteral hip pain still present. Pt states that her back pain is where she has an old fx. Pt c/o right arm tingliness. pt has tried tylenol and ibuprofen OTC, hot baths, ice/heat. History of Present Illness TASH CORRAL is a 32 year old female. - Allergy list reviewed - Medication list reviewed - Pain - Musculoskeletal symptoms - No recent falls Patient is a pleasant 32-year-old female, who presents today with acute concern. She complains of back pain x1 month. She has tried muscle relaxer and steroid with mild relief but still has pain in her lower back and bilateral hips. She also has right arm tingling. She has tried OTC Tylenol, ibuprofen, hot baths, ice/heat without significant benefits. She has been doing exercises regularly. She denies any injury or trauma. She had an x-ray of lumbar spine from 03/2021, which showed old healed non-displaced fracture of right L1 transverse process. She also complains of irregular heavy menstrual bleeding and is not sure when her LMP was but last bled 2 weeks ago. Current Medication - Albuterol Sulfate HFA 108 (90 Base) MCG/ACT Inhalation Aerosol Solution as directed 2 puffs inhaled q4-6 hours prn, 30 days, 0 refills - Cyclobenzaprine HCl 10 MG Oral Tablet 1/2- 1 tablet po q8 hours prn for back pain, 5 days, 0 refills - Norethin Seven-Eth Estrad-FE 1-20 MG-MCG Oral Tablet 0 days, 0 refills - Omeprazole 20 MG Oral Capsule Delayed Release 1 Capsule every morning, 30 days, 0 refills - Pantoprazole Sodium 40 MG Oral Tablet Delayed Release 30 days, 0 refills Past Medical/Surgical History Reported: No recent change in medical history and LMP: 07/15/2022 pt not regular due to BC pills. Medications: Taking OTC pain medication /fever. Using Tylenol and [id number] medications. : Vaginal delivery. Pediatric: Patient's weight: 5 lbs 14 oz. Physical Exam: Length at : 20 in Social History Tobacco use: Former smoker. Smoking status: Never smoker. Housing And Economic Circumstances: Lives with parents. Education: Currently in school. Allergies - Penicillins Family History Cancer Review Of Systems Systemic: No edema. Head: No headache. Cardiovascular: No chest pain or discomfort. Pulmonary: No shortness of breath. Musculoskeletal: Musculoskeletal symptoms. Neurological: No dizziness. Physical Findings - Vitals taken 11/29/2022 04:02 pm BP-Sitting L 118/74 mmHg BP Cuff Size Large Pulse Rate-Sitting 100 bpm Respiration Rate 18 per min Height 60 in Weight 128 lbs Body Mass Index 25 kg/m2 Body Surface Area 1.5 m2 Oxygen Saturation 98 % General Appearance: - In no acute distress. Eyes: General/bilateral: Pupils: - PERRLA. Lungs: - Normal breath sounds/voice sounds. Cardiovascular: Heart Rate And Rhythm: - Normal. Edema: - Present. Back: - Back: Musculoskeletal System: General/bilateral: - Musculoskeletal system: normal. Lumbar / Lumbosacral Spine: General/bilateral: - Lumbosacral spine exhibited muscle spasms. - Lumbosacral spine pain was elicited by motion. - Palpation of the lumbosacral spine revealed no abnormalities. - Lumbosacral spine demonstrated full range of motion. - Straight-leg raise test normal. Toes: General/bilateral: - Toe Raises were =. Neurological: - Oriented to time, place, and person. Cranial Nerves: - Normal. Sensation: - No sensory exam abnormalities were noted. Reflexes: - Deep tendon reflexes were normal. Peripheral Nerves: - Braggarts test was positive bilaterally. - Leseques Testwas negative. Skin: - General appearance was normal. Assessment - Arthralgias of multiple sites [M25.50 - Pain in unspecified joint] - Sciatica [M54.30 - Sciatica, unspecified side] - Myalgia and myositis [M79.10 - Myalgia, unspecified site] - Somatic dysfunction of lumbar region [M99.03 - Segmental and somatic dysfunction of lumbar region] - Somatic dysfunction of sacrum [M99.04 - Segmental and somatic dysfunction of sacral region] Therapy - Intervention and counseling on cessation of tobacco use. - Pt encouraged to be compliant with current treatment. - No high velocity / low amplitude osteopathic manipulative treatment [facility]ATED WE[facility]. Muscle energy therapy [facility]ATED [facility] and OMT - Soft tissue/muscle stretching techniques [facility]OLERATED WELL. - Plan of care reviewed and agreed to by the patient. Vaccinations - Tdap (Boostrix) Dose #1 Status: Prev Hist Date: 09/22/2019 - COVID-19 Pfizer Dose #1 Status: Prev Hist Date: 07/04/2021 - COVID-19 Pfizer Dose #2 Status: Prev Hist Date: 08/10/2021 Plan StartCited - Pain in unspecified joint Medrol 4 MG each as directed, 6 days, 0 refills EndCited StartCited - Segmental and somatic dysfunction of lumbar region Therapy/Physical Therapy: Back Instructions: Evaluate and Treat In office procedures/*Family Practice: OMT 1-2 Areas EndCited - Return to the clinic if condition worsens or new symptoms arise - Go to the emergency room if condition worsens - Watch for signs/symptoms of infection - Medication instruction - Prednisone - Physical Therapy - Follow-up visit PLAN [Use for s.o.a.p. note free text]. She was prescribed with Medrol Dosepak Provided referral for physical therapy. She was advised to avoid lifting, bending, or twisting. Other Neal Encinas, scribing the following service on behalf of Dr. Chris Curtis, D.O. Practice Management Use of tobacco assessment performed Review of medications documented.
--- OUTSIDE RECORDS SUMMARY | 2025-02-18 08:23 | XMS_ITS ---
Care Plan - [facility] Created on: February 18, 2025 TASH CORRAL : 1990 Sex: Female Author Organization [facility] Address [address] [place] [address] Phone Care Team Providers Care Railroad Firer Name Role Phone CHRIS PORRAS DO Primary Care Provider [phone]
--- OUTSIDE RECORDS SUMMARY | 2025-02-18 08:23 | XMS_ITS | Clinical Summary ---
Author Organization [facility] Address [address] [place] [address] Phone Care Team Providers Care Icu Rn Name Role Phone CHRIS PORRAS DO Primary Care Provider [phone] Reason for Visit and Chief Complaint NO SHOW Problems Includes: Problems addressed during this encounter and other active Problems No Active Problems Plan of Treatment No Plan of Treatment Recorded Assessments Includes: Assessments from this encounter No [...] On 11/29/2022 4:59PM By Neal Encinas ; [facility] Cyclobenzaprine HCl 10 MG Oral Tablet 11/15/2022 Provider: TORY ALVAREZ Diagnosis: Lumbago with sci atica, right side 1/2- 1 tablet po q8 hours pr n for back pain Last Documented On 3 2:16PM By Tory ALVAREZ ; [facility] Pantoprazole Sodium 40 MG Oral Tablet Delayed Release 09/27/2022 Provider: Diagnosis: Last Documented On 11/15/2022 2:05PM By Clover Slaughter MA ; [facility] Albuterol Sulfate HFA 108 (90 Base) MCG/ACT Inhalation Aerosol Solution 01/19/2022 Provider: TORY ALVAREZ Diagnosis: Acute bronchitis , unspecified as directed 2 puffs inhaled q4-6 hours prn Last Documented On 2 4:17PM By Tory Murrell CONTINUOUS CRUSHER OPERATOR-C ; [facility] Omeprazole 20 MG Oral Capsule Delayed Release 07/25/2021 Provider: JUAN VÁSQUEZ PMHNP-BC CONTINUOUS CRUSHER OPERATOR-BC Diagnosis: Gastro-esophagea l reflux dis with esophagitis, without bleed 1 Capsule every morning Last Documented On 07/19/2022 1:56PM By Damaris THOMSON ; [facility] Norethin Seven-Eth Estrad-FE 1-20 MG-MCG Oral Tablet Provider: Diagnosis: Last Documented On 07/11/2021 2:25PM By Damaris THOMSON ; [facility] Medications Administered Includes: Administered Medications from this [...] Active Last Documented On 3 4:01PM ; [facility] Encounters Encounter Provider Location Date Check-In Time Check-Out Time Diagnosis NO SHOW CHRIS PORRAS [facility] 3 4:15PM 11:59PM Insurance Includes: Active Insurance Policies Plan Name Member ID Group # Subscriber Relationship Effect thuan Dates 1 - [facility] [id number] OSCAR CORRAL A Clinical Notes Includes: Clinical Notes from this encounter No Clinical Notes Recorded
--- OUTSIDE RECORDS SUMMARY | 2025-02-18 08:23 | XMS_ITS | Clinical Summary ---
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 Avoid strenuous activity/heavy lifting while recovering. Continue OTC NSAID such as ibuprofen or aleve. If symptoms worsen or do not improve call/return to office. - Last Documented On 11/15/2022 2:16PM ; [facility] Assessments Includes: Assessments from this encounter Findings - Lumbago with right-side sciatica [M54.41 - Lumbago with sciatica, right side] - Last Documented On 11/15/2022 2:16PM ; [facility] Medical Equipment - Implanted Devices Includes: Current Devices No Medical Equipment Recorded Medications Includes: Medications discussed during this encounter and other current Medications New / Renewed during this visit TORY ALVAREZ on 11/15/2022 Cyclobenzaprine HCl 10 MG Oral Tablet Provider: TORY ALVAREZ 5 day supply: 15 tablet, 0 refills Diagnosis: Lumbago with sciatica, right side 1/2- 1 tablet po q8 hours pr n for back pain Pharmacy: [facility] ([place] - [address] , [facility], [phone] - Last Documented On 01/26/202 3 2:16PM By Tory ALVAREZ ; [facility] predniSONE 20 MG Oral Tablet Provider: TORY ALVAREZ 6 day supply: 9 tablet, 0 refills Diagnosis: Lumbago with sciatica, right side as directed 2 tab po qd x 3 then 1 tab po qd x 3 Pharmacy: [facility] [address] ([place]) , [facility], [phone] - Last Documented On 11/29/2022 4:00PM By Damaris THOMSON ; [facility] Current Medications (continue as prescribed) Medrol 4 MG Oral Tablet Therapy Pack 11/29/2022 Provider: CHRIS PORRAS DO Diagnosis: Pain in unspecif ied joint as directed Last Documented On 11/29/2022 4:59PM By Neal Encinas ; [facility] Pantoprazole Sodium 40 MG Oral Tablet Delayed Release 09/27/2022 Provider: Diagnosis: Last Documented On 11/15/2022 2:05PM By Clover Slaughter MA ; [facility] Albuterol Sulfate HFA 108 (90 Base) MCG/ACT Inhalation Aerosol Solution 01/19/2022 Provider: TORY RINCONC Diagnosis: Acute bronchitis , unspecified as directed 2 puffs inhaled q4-6 hours prn Last Documented On 2 4:17PM By Tory ALVAREZ ; [facility] Omeprazole 20 MG Oral Capsule Delayed Release 07/25/2021 Provider: [facility]- Diagnosis: Gastro-esophagea l reflux dis with esophagitis, without bleed 1 Capsule every morning Last Documented On 07/19/2022 1:56PM By Damaris THOMSON ; [facility] Norethin Seven-Eth Estrad-FE 1-20 MG-MCG Oral Tablet Provider: Diagnosis: Last Documented On 07/11/2021 2:25PM By Damaris THOMSON ; [facility] Medications Administered Includes: Administered Medications from this encounter No Administered Medications Recorded Vital Signs Includes: Vital Signs from this encounter Vital Name 11/15/2022 02:07P Blood Pressure Sitting R 104/76 BP Cuff Size Regular Pulse Rate-Sitting (bpm) 107 Temp-Oral (F) 98 Height (in) 60 Weight (lb) 129.8 Body Mass Index 25.3 Body Surface Area 1.6 Oxygen Saturation (%) 98 Last Documented: On 11/15/2022 2:08PM ; [facility] Results Includes: Results discussed during this encounter No Results Recorded For Specified Dates History of Present Illness Includes: History of Present Illness from this encounter HPI EMILY CORRAL is a 32 year old female. - Allergy list reviewed - Medication list reviewed Emily is here with pain in the low back- she reports an old lumbar fracture and has back pain from time to time. She denies any new injury. The pain started about a week ago in the right low back and wraps around the right leg. She denies any numbness/tingling. She denies any change in bowel or bladder function. She reports she has been taking tylenol as needed and using a heating pad but it doesn't seem to be helping. Social History Description Last Updated Current smoker 11/15/2022 Last Documented On 3 2:16PM ; [facility] Smoking Status Unknown Procedures and Surgical History Includes: Procedures from this encounter Procedures Code Diagnosis Performing Provider Service L ocation Service Date use of tobacco assessment performed 1000F Last Documented On 3 2:07PM ; [facility] Medical History Includes: Medical History addressed during this encounter No Medical History Recorded Family History Includes: Family History addressed during this encounter No Family History Recorded Review of Systems Includes: Review of Systems from this encounter Systemic: No systemic symptoms. Head: No head symptoms. Otolaryngeal: No otolaryngeal symptoms. Pulmonary: No pulmonary symptoms. Gastrointestinal: No gastrointestinal symptoms. Musculoskeletal: Musculoskeletal symptoms back pain in the right low back. Skin: No skin symptoms. Mental Status Includes: Mental Status from this encounter Description Oriented to time, place, and person Functional Status Includes: Functional Status from this encounter No Functional Status Recorded Physical Exam Includes: Physical Exam from this encounter Allergies Includes: Active Allergies Substance Type Reaction Onset Date Resolved Date Statu s Penicillins Allergy 04/27/2009 Active Last Documented On 3 4:01PM ; [facility] Encounters Encounter Provider Location Date Check-In Time Check-Out Time Diagnosis WALK IN PATIENT - ESTABLISHED PT TORY RINCONC [facility] 11/15/19 23 2:08PM 2:15PM Lumbago with Sciatica Right-side Insurance Includes: Active Insurance Policies Plan Name Member ID Group # Subscriber Relationship Effect thuan Dates 1 - [facility] [id number] OSCAR CORRAL Clinical Notes Includes: Clinical Notes from this encounter * Progress note Date Encounter Last Documented by 11/15/2022 WALK IN PATIENT - ESTABLISHED PT Last documented on 11/15/2022; 2:16 PM, TORYJaylon BAUMANP-C; [facility] Chief Complaint The Chief Complaint is: PT C/O BACK PAIN WHERE SHE HAS AN OLD LUMBER FRACTURE. History of Present Illness EMILY CORRAL is a 32 year old female. - Allergy list reviewed - Medication list reviewed Emily is here with pain in the low back- she reports an old lumbar fracture and has back pain from time to time. She denies any new injury. The pain started about a week ago in the right low back and wraps around the right leg. She denies any numbness/tingling. She denies any change in bowel or bladder function. She reports she has been taking tylenol as needed and using a heating pad but it doesn't seem to be helping. Social History Tobacco use: Current smoker. Review Of Systems Systemic: No systemic symptoms. Head: No head symptoms. Otolaryngeal: No otolaryngeal symptoms. Pulmonary: No pulmonary symptoms. Gastrointestinal: No gastrointestinal symptoms. Musculoskeletal: Musculoskeletal symptoms back pain in the right low back. Skin: No skin symptoms. Physical Findings - Vitals taken 11/15/2022 02:07 pm BP-Sitting R 104/76 mmHg BP Cuff Size Regular Pulse Rate-Sitting 107 bpm Temp-Oral 98 F Height 60 in Weight 129 lbs 12.8 oz Body Mass Index 25.3 kg/m2 Body Surface Area 1.6 m2 Oxygen Saturation 98 % General Appearance: - Well-appearing. - Awake. - Alert. - Well developed. - Well hydrated. - In no acute distress. Lungs: - Normal breath sounds/voice sounds. - No wheezing was heard. Cardiovascular: Heart Rate And Rhythm: - Normal. Murmurs: - No murmurs were heard. Abdomen: Auscultation: - Bowel sounds were normal. Palpation: - Abdominal non-tender. Musculoskeletal System: Lumbar / Lumbosacral Spine: General/bilateral: - Right side of the iliolumbar region exhibited tenderness on palpation. - A straight-leg raising test of the right leg was positive. Neurological: - Oriented to time, place, and person. Gait And Stance: - Normal. Assessment - Lumbago with right-side sciatica [M54.41 - Lumbago with sciatica, right side] Plan StartCited - Lumbago with sciatica, right side predniSONE 20 MG tablet as directed 2 tab po qd x 3 then 1 tab po qd x 3, 6 days, 0 refills Cyclobenzaprine HCl 10 MG tablet 1/2- 1 tablet po q8 hours prn for back pain, 5 days, 0 refills EndCited Recommended application of heat to the area. Avoid strenuous activity/heavy lifting while recovering. Continue OTC NSAID such as ibuprofen or aleve. If symptoms worsen or do not improve call/return to office. Practice Management Use of tobacco assessment performed.
--- OUTSIDE RECORDS SUMMARY | 2025-02-18 08:23 | XMS_ITS | Data Portability ---
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 will try going off OCPs Not available 11/10/2020 16:55:03 02/12/2022 02/12/2022 On Air Announcer exam benign will switch from progesterone only pill to help with periods and PMS Not available 02/12/2022 16:33:45 06/01/2022 06/01/2022 vaginitis plus swab done will call with results prep H for 'roid Not available 06/01/2022 15:31:10 02/18/2024 02/18/2024 33 y.o. with possible painful ovulation will start low dose OCPs as a trial and return for annual in 4 months Not available 02/18/2024 11:39:23 06/19/2024 06/19/2024 On Air Announcer exam normal after discussion, will attempt continuous pills to alleviate pain with periods. ( as if was 'osis) f/u September advised to quit smoking Not available 06/19/2024 10:18:19 Plan of Treatment Reminders Order Date Submit Date Provider Last Modified By Organization Details Last Modified Time Details Appointments None recorded. Lab cytology report, thin prep, smear or scraping, cervical or vaginal 2023 024 [facility], [address], [address], [place], [address], 4 07:20:04 vaginal pathogens panel, VANESSA+probe, vaginal fluid 2021 [facility], [address], [address], [place], [address], 2 07:07:35 cytology report, thin prep, smear or scraping, cervical or vaginal 2021 [facility], [address], [address], [place], [address], 2 07:14:47 Referral None recorded. Procedures None recorded. Surgeries None recorded. Imaging None recorded. Medication Orders Marchl Fe 24 1 mg-20 mcg (24)/75 mg (4) tablet 2023 024 [id number], [address], [place], [place], [id number], 4 10:18:43 Junel Fe 24 1 mg-20 mcg (24)/75 mg (4) tablet 2023 024 [id number], [address], [place], [place], [id number], 4 11:39:00 Marchl Fe 24 1 mg-20 mcg (24)/75 mg (4) tablet 2021 022 [facility] #[id number], [address], [place], [place], [phone], 2 03:31:57 Depo-Loss Control Manager a 150 mg/mL intramuscul ar suspension 2020 021 [facility][id number], [address], [place], [place], [phone], 16:03:09 Patient TargetsNo targets recorded. Patient Instructions Encounter Date Encounter Id Patient Instructions Last Modified By Organization Details Last Modified Time 02/18/2024 [id number] A healthy lifestyle: care instructions Not available 02/18/2024 11:38:53 learning about mitteedmundo (pain during ovulation) Not available 02/18/2024 11:38:53 06/19/2024 [id number] A healthy lifestyle: care instructions Not available 06/19/2024 10:18:20 Quitting Tobacco : Care Instructions Not available 06/19/2024 10:18:20 Reason for Referral None Reported. Results Created Date Observation Date Name Description Value Unit Range Abnormal Flag Note LastModifiedBy Organization Detail LastModifiedTime 02/13/20 22 02/14/2022 IGP,C TNGTV ,RFX APTIM A HPV ASCU chlamydia, nuc. acid amp Negati ve negati ve Not Available [facility] ([facility]) [address] [place], [address], 02/16/2022 07:14:47 02/13/20 22 02/14/2022 IGP,C TNGTV ,RFX APTIM A HPV ASCU gonococcus, nuc. acid amp Negati ve negati ve Not Available [facility] ([facility]) [address] [place], [address], 02/16/2022 07:14:47 02/13/20 22 02/14/2022 IGP,C TNGTV ,RFX APTIM A HPV ASCU trich vag by VANESSA Negati ve negati ve Not Available [facility] ([facility]) [address] [place], [address], 02/16/2022 07:14:47 02/13/20 22 02/15/2022 IGP,C TNGTV ,RFX APTIM A HPV ASCU diagnosis: Commen t NEGAT PAT FOR INTRA EPITH ELIAL LESIO N OR CHRISTINA WHATLEY . Not Available [facility] ([facility]) [address] [facility], [place], [address], 02/16/2022 07:14:47 02/13/20 22 02/15/2022 IGP,C TNGTV ,RFX APTIM A HPV ASCU specimen adequacy: Anderson t Satis facto ry for evalu ation . Endoc ervic al and/o r squam ous metap lasti c cells (endo cervi delia compo nent) are prese nt. Not Available [facility] ([facility]) [address] [facility], [place], [address], 02/16/2022 07:14:47 02/13/20 22 02/15/2022 IGP,C TNGTV ,RFX APTIM A HPV ASCU clinician provided ICD10: Anderson aleman Z01.4 19 Not Available [facility] ([facility]) [address] [facility], [place], [address], 02/16/2022 07:14:47 02/13/20 22 02/15/2022 IGP,C TNGTV ,RFX APTIM A HPV ASCU performed by: Prasanth Hewitt (ASCP ) Not Available [facility] ([facility]) [address] [facility], [place], [address], 02/16/2022 07:14:47 02/13/20 22 02/15/2022 IGP,C TNGTV ,RFX APTIM A HPV ASCU . . Not Available [facility] ([facility]) [address] [facility], [place], [address], 02/16/2022 07:14:47 02/13/20 22 02/15/2022 IGP,C TNGTV ,RFX APTIM A HPV ASCU note: Anderson aleman The Pap smear is a scree rosa test percy foy to aid in the detec tion of linus ligna nt and malig nant condi tions of the uteri ne cervi x. It is not a diagn ostic proce dure and shoul d not be used as the sole means of detec ting cervi delia cance r. Both false -posi tive and false -nega tive repor ts do occur . Not Available [facility] ([facility]) [address] [place], [address], 02/16/2022 07:14:47 02/13/20 22 02/15/2022 IGP,C TNGTV ,RFX APTIM A HPV ASCU test methodology: Commen t This liqui d based ThinP rep(R ) pap test was felipa foy with the use of an image guide yesi rizvi Not Available [facility] ([facility]) [address] [place], [address], 02/16/2022 07:14:47 02/13/2002/15/2022 IGP,C TNGTV ,RFX APTIM A HPV ASCU . Commen t The HPV DNA refle x crite sravanthi were not met with this speci men resul t there fore, no HPV testi ng was perfo rmed. Not Available [facility] ([facility]) [address] [place], [address], 02/16/2022 07:14:47 06/01/20 22 06/03/2022 NUSWA B VAGIN ITIS PLUS (VG+) atopobium vaginae High - 2 score abnormal Not Available [facility] ([facility]) [address] [place], [address], 06/04/2022 07:07:35 06/01/20 22 06/03/2022 NUSWA B VAGIN ITIS PLUS (VG+) bvab 2 High - 2 score abnormal Not Available [facility] ([facility]) [address] [place], [address], 06/04/2022 07:07:35 06/01/20 22 06/03/2022 NUSWA B VAGIN ITIS PLUS (VG+) megasphaera 1 High - 2 score abnormal Calcu late total score by spencer cardona the 3 indiv idual bacte rial vagin osis (BV) marke r score s toget her. Total score is inter prete d as follo ws: Total score 0-1: Indic ates the absen ce of BV. Total score 2: Indet ermin ate for BV. Addit ional clini delia data shoul d be evalu ated to estab edward a diagn osis. Total score 3-6: Indic ates the prese nce of BV. This test was devel oped and its perfo rmanc e gina cteri stics deter mined by [employer]. It has not been clear ed or appro ariadne by the Food and Drug Admin istra tion. Not Available [facility] ([facility]) [address] [place], [address], 06/04/2022 07:07:35 06/01/20 22 06/03/2022 NUSWA B VAGIN ITIS PLUS (VG+) carmen albicans, VANESSA Negati ve negati ve Not Available [facility] ([facility]) [address] [place], [address], 06/04/2022 07:07:35 06/01/20 22 06/03/2022 NUSWA B VAGIN ITIS PLUS (VG+) carmen glabrata, VANESSA Negati ve negati ve Not Available [facility] ([facility]) [address] [place], [address], 06/04/2022 07:07:35 06/01/20 22 06/04/2022 NUSWA B VAGIN ITIS PLUS (VG+) trich vag by VANESSA Negati ve negati ve Not Available [facility] ([facility]) [address] [place], [address], 06/04/2022 07:07:35 06/01/20 22 06/04/2022 NUSWA B VAGIN ITIS PLUS (VG+) chlamydia trachomatis, VANESSA Negati ve negati ve Not Available [facility] ([facility]) [address] [place], [address], 06/04/2022 07:07:35 06/01/20 22 06/04/2022 NUA B VAGIN ITIS PLUS (VG+) neisseria gonorrhoeae, VANESSA Negati ve negati ve Not Available [facility] ([facility]) [address] [place], [address], 06/04/2022 07:07:35 06/19/20 24 06/24/2024 IGP, RFX APTIM A HPV ASCU diagnosis: ANDERSON STEWART FOR INTRA EPITH ELIAL LESIO N OR CHRISTINA WHATLEY . Not Available [facility] ([facility]) [address] [place], [address], 06/25/2024 07:20:04 06/19/20 24 06/24/2024 IGP, RFX APTIM A HPV ASCU specimen adequacy: ANDERSON T Satis facto ry for evalu ation . Endoc ervic al and/o r squam ous metap lasti c cells (endo cervi delia compo nent) are prese nt. Not Available [facility] ([facility]) [address] [place], [address], 06/25/2024 07:20:04 06/19/20 24 06/24/2024 IGP, RFX APTIM A HPV ASCU clinician provided ICD10: ANDERSON Aleman Z01.4 19 Not Available [facility] ([facility]) [address] [place], [address], 06/25/2024 07:20:04 06/19/20 24 06/24/2024 IGP, RFX APTIM A HPV ASCU performed by: ANDERSON Fierro , Cytot kusum aelman (ASCP ) Not Available [facility] ([facility]) [address] [facility] [place], [address], 06/25/2024 07:20:04 06/19/20 24 06/24/2024 IGP, RFX APTIM A HPV ASCU . . Not Available [facility] ([facility]) [address] [facility], [place], [address], 06/25/2024 07:20:04 06/19/20 24 06/24/2024 IGP, RFX APTIM A HPV ASCU note: COMMEN T The Pap smear is a scree rosa test desig danii to aid in the detec tion of linus ligna nt and malig nant condi tions of the uteri ne cervi x. It is not a diagn ostic proce dure and shoul d not be used as the sole means of detec ting cervi delia cance r. Both false -posi tive and false -nega tive repor ts do occur . Not Available [facility] ([facility]) [address] [facility], [place], [address], 06/25/2024 07:20:04 06/19/20 24 06/24/2024 IGP, RFX APTIM A HPV ASCU test methodology: COMMEN T This liqui d based ThinP rep(R ) pap test was scree danii with the use of an image guide d syste m. Not Available [facility] ([facility]) [address] [place], [address], 06/25/2024 07:20:04 06/19/20 24 06/24/2024 IGP, RFX APTIM A HPV ASCU . COMMEN T The HPV DNA refle x crite sravanthi were not met with this speci men resul t there fore, no HPV testi ng was perfo rmed. Not Available [facility] ([facility]) [address] [facility], [place], [address], 06/25/2024 07:20:04 02/18/20 24 01/06/2024 US, pelvi s, compl ete No observ ation record ed. [facility] [address] [place], [address], 02/18/2024 12:14:41 Result Notes None recorded. Problems Name Problem SNOMED Code Status Onset Date Resolution Date Notes Provider Name and Address Organization Details Recorded Time 92504331 Completed 201810/15/2019 Martha Harvey null, [place] - [facility] 9 15:51:29 Placenta previa 09706559 Completed Martha Hravey null, [place] - [facility] 9 15:51:27 Bacterial vaginosis 911550082 Active Not Available [facility] 3 18:08:15 Disorder of menstruati on 620878925 Active Not Available [facility] 3 18:08:15 Vaginal odor 605294482 Active Not Available [facility] 3 18:08:15 Pain of breast 31549275 Active Not Available [facility] 3 18:08:15 Problem Notes None recorded. Procedures Surgical History Date Name Laterality Status Provider Name and Address Organization Details Recorded Time 06/19/20 24 Date of Last Pap Smear completed Risa Rodas RN [place] - [facility] 06/25/2024 09:39:17 07/10/20 16 Depo Injection completed Crystal Edwards [place] - [facility] 07/10/2016 17:09:54 04/11/20 16 IUD Removal completed Nadia Brown [place] - [facility] 04/11/2016 12:58:31 04/11/20 16 Depo Injection completed Crystal Edwards [place] - [facility] 04/11/2016 09:04:28 10/21/19 13 Cholecystectomy completed Crystal Edwards [place] - [facility] 06/17/2015 17:03:38 Imaging Results Imaging Date Name Status LastModified by Organiz ation Details LastModified Time 01/06/2024 US, pelvis, complete completed [facility] Sched[facility] [address] [place], [address], 02/18/2024 12:14:41 Procedure Notes None recorded. Medical Equipment None Reported. Allergies Allergen ID Allergen Name Allergen Category Reaction Reaction Severity Criticality Documentation Date Start Date Code Code System Note Provider Name and Address Organization Details Recorded Time 74306 Product containin g penicilli n (product) medicatio n Not available Not available Not available 01/14/2015 85356 8001 SNOMED Vida Morales MA null, [place] - [facility] 5 10:42:09 Medications Name Sig Start Date Stop Date Status Note LastModified by Organization Details LastModified Time carisoprodo l 350 mg tablet TAKE 1 TABLET BY MOUTH THREE TIMES A DAY 04/26 completed Not Available Not Available Not Available cyclobenzap rine 10 mg tablet TAKE 1/2 TABLET BY MOUTH EVERY EVENING FOR 5 DAYS active Not Available Not Available No t Available methocarbam ol 500 mg tablet active Not Available Not Available Not Available buspirone 5 mg tablet active Not Available Not Available No t Available prednisone 10 mg tablet 02/17 completed Not Available Not Available Not Available doxycycline hyclate 100 mg capsule 02/17 completed Not Available Not Available Not Available nicotine 14 mg/24 hr daily transdermal patch UNWRAP AND APPLY 1 PATCH ON THE SKIN DAILY active Not Available Not Available No t Available azithromyci n 250 mg tablet TAKE 2 TABLETS BY MOUTH FOR 1 DAY THEN TAKE 1 TABLET BY MOUTH DAILY FOR 4 DAYS active Not Available Not Available No t Available Lidocaine Viscous 2 % mucosal solution active Not Available Not Available Not Available fluconazole 150 mg tablet Take 1 tablet every 72 hours by oral route prn vaginal candidias is. active Not Available Not Available No t Available chlorzoxazo ne 500 mg tablet TAKE 1/2 TO 1 TABLET BY MOUTH EVERY 6 HOURS DIRECTED NEEDED 02/12 completed Not Available Not Available Not Available valacyclovi r 1 gram tablet active Not Available Not Available Not Available hydrocodone 5 mg-acetamin ophen 325 mg tablet TAKE 1 TABLET BY MOUTH EVERY 6 HOURS FOR UP TO 7 DAYS NEEDED FOR PAIN active Not Available Not Available No t Available meloxicam 15 mg tablet active Not Available Not Available Not Available metaxalone 400 mg tablet active Not Available Not Available Not Available ondansetron HCl 4 mg tablet TAKE 1 TABLET BY MOUTH EVERY 4 TO 6 HOURS NEEDED 02/12 completed Not Available Not Available Not Available prednisone 20 mg tablet TAKE 2 TABLETS BY MOUTH EVERY DAY FOR 3 DOSES DIRECTED THEN TAKE 1 TABLET BY MOUTH EVERY DAY FOR 3 DOSES active Not Available Not Available No t Available metronidazo le 500 mg tablet TAKE 1 TABLET BY MOUTH TWICE DAILY WITH MEALS FOR 7 DAYS 04/26 completed Not Available Not Available Not Available sulfamethox azole 800 mg-trimetho prim 160 mg tablet TAKE 1 TABLET BY MOUTH TWICE DAILY FOR 10 DAYS 02/12 completed Not Available Not Available Not Available omeprazole 40 mg capsule,del ayed release TAKE 1 CAPSULE BY MOUTH EVERY DAY BEFORE NIGHT MEAL active Not Available Not Available No t Available tramadol 50 mg tablet TAKE 1 TABLET BY MOUTH EVERY 6 HOURS NEEDED SEVERE PAIN 02/17 completed Not Available Not Available Not Available triamcinolo ne acetonide 0.1 % topical cream APPLY TOPICALLY TO THE AFFECTED AREA TWICE DAILY active Not Available Not Available No t Available spironolact one 25 mg tablet active Not Available Not Available Not Available ketorolac 10 mg tablet TAKE 1 TABLET BY MOUTH EVERY 6 HOURS NEEDED FOR MODERATE TO SEVERE PAIN active Not Available Not Available No t Available Vitamin tablet Take 1 tablet every day by oral route. 11/10 completed Not Available Not Available Not Available nortriptyli ne 25 mg capsule TAKE 1 - 2 CAPSULE BY MOUTH EVERY NIGHT AT BEDTIME active Not Available Not Available No t Available meloxicam 7.5 mg tablet active Not Available Not Available Not Available hydrocortis one 2.5 % topical cream with perineal applicator INSERT RECTALLY TO THE AFFECTED AREA TWICE DAILY 04/26 completed Not Available Not Available Not Available prednisolon e acetate 1 % eye drops,suspe nsion INSTILL 1 DROP INTO LEFT EYE THREE TIMES DAILY 02/17 completed Not Available Not Available Not Available Depo-Loss Control Manager a 150 mg/mL intramuscul ar suspension Inject 1 mL every 3 months by intramusc ular route. 02/12 completed Not Available Not Available Not Available imiquimod 5 % topical cream packet active Not Available Not Available Not Available phenazopyri dine 100 mg tablet Take 1 tablet 3 times a day by oral route. 11/10 completed Not Available Not Available Not Available benzonatate 100 mg capsule 02/17 completed Not Available Not Available Not Available doxycycline monohydrate 100 mg capsule 04/26 completed Not Available Not Available Not Available pantoprazol e 40 mg tablet,vincent yed release active Not Available Not Available Not Available neomycin-po lymyxin-dex ameth 3.5 mg/mL-10,00 0 unit/mL-0.1 % eye drops active Not Available Not Available Not Available buspirone 10 mg tablet active Not Available Not Available Not Available polymyxin B sulfate 10,000 unit-trimet hoprim 1 mg/mL eye drops INSTILL 2 DROPS IN RIGHT EYE FOUR TIMES DAILY FOR 7 DAYS active Not Available Not Available No t Available nicotine 21 mg/[address] daily transdermal patch PLACE 1 PATCH ON THE SKIN ONCE DAILY active Not Available Not Available No t Available diclofenac potassium 50 mg tablet TAKE 1 TABLET BY MOUTH THREE TIMES DAILY 04/26 completed Not Available Not Available Not Available sertraline 25 mg tablet active Not Available Not Available Not Available omeprazole 20 mg capsule,del ayed release TAKE 1 CAPSULE BY MOUTH EVERY MORNING 02/12 completed Not Available Not Available Not Available gabapentin 100 mg capsule active Not Available Not Available Not Available ergocalcife rol (vitamin D2) 1,250 mcg (50,000 unit) capsule TAKE 1 CAPSULE BY MOUTH 1 TIME A WEEK active Not Available Not Available No t Available ibuprofen 600 mg tablet 11/10 completed Not Available Not Available Not Available methylpredn isolone 4 mg tablets in a dose pack FOLLOW PACKAGE DIRECTION S 02/17 completed Not Available Not Available Not Available albuterol sulfate HFA 90 mcg/actuati on aerosol inhaler INHALE 2 PUFFS BY MOUTH EVERY 6 HOURS NEEDED FOR WHEEZING OR SHORTNESS OF BREATH active Not Available Not Available No t Available ondansetron 4 mg disintegrat ing tablet Take 2 tablets every 12 hours by oral route as needed. active Not Available Not Available No t Available fluticasone propionate 50 mcg/actuati on nasal spray,suspe nsion SHAKE LIQUID AND USE 2 SPRAYS IN EACH NOSTRIL DAILY NEEDED FOR ALLERGIES active Not Available Not Available No t Available sertraline 50 mg tablet Take 1 tablet every day by oral route as directed. 11/10 completed Not Available Not Available Not Available nicotine 7 mg/24 hr daily transdermal patch UNWRAP AND APPLY 1 PATCH TO SKIN DAILY active Not Available Not Available No t Available [facility] 11/09 (21) 1 mg-20 mcg tablet TAKE 1 TABLET BY MOUTH EVERY DAY. PLEASE CALL OFFICE FOR APPOINTME NT 06/01 completed Not Available Not Available Not Available nitrofurant oin monohydrate /macrocryst als 100 mg capsule Take 1 capsule every 12 hours by oral route as directed for 10 days. 11/10 completed Not Available Not Available Not Available Mirena active Not Available Not Availa ble Not Available lubiproston e 24 mcg capsule active Not Available Not Available Not Available naloxone 4 mg/actuatio n nasal spray CALL 911. SPR CONTENTS OF ONE SPRAYER (0.1ML) INTO ONE NOSTRIL. REPEAT IN 2-3 MIN IF SYMPTOMS PERSIST. active Not Available Not Available No t Available Aurovela 24 Fe 1 mg-20 mcg (24)/75 mg (4) tablet Take 1 tablet every day by oral route. active Not Available Not Available No t Available Vitals Date Recorded Body height Body mass index (BMI) Body weight Systolic blood pressure Diastolic blood pressure Provider Name and Address Organization Details Last Updated DateTime 11/10/2020 160.02 cm 23.1 kg/m2 62073.09 g 112 mm[Hg] 70 mm[Hg] Debra Blackman [facility] 1 16:32:19 Date Recorded Body weight Systolic blood pressure Diastolic blood pressure Provider Name and Address Organization Details Last Updated DateTime 02/12/2022 96124.11 g 126 mm[Hg] 70 mm[Hg] Debra Blackman [facility] 02/12/2022 16:13:25 Date Recorded Body weight Body mass index (BMI) Body height Systolic blood pressure Diastolic blood pressure Provider Name and Address Organization Details Last Updated DateTime 06/01/2022 96762.64 g 22.3 kg/m2 160.02 cm 122 mm[Hg] 70 mm[Hg] Debra Blackman [facility] 2 14:47:33 Date Recorded Body height Body mass index (BMI) Body weight Systolic blood pressure Diastolic blood pressure Provider Name and Address Organization Details Last Updated DateTime 02/18/2024 160.02 cm 26 kg/m2 48633.22 g 109 mm[Hg] 75 mm[Hg] Debra Blackman [facility] 4 11:23:49 Date Recorded Body height Body mass index (BMI) Body weight Systolic blood pressure Diastolic blood pressure Provider Name and Address Organization Details Last Updated DateTime 06/19/2024 160.02 cm 25.9 kg/m2 01455.49 g 122 mm[Hg] 86 mm[Hg] BERTO Soto [place] - [facility] 4 09:58:40 Social History Question Answer Notes LastModified by Organizat ion Details LastModified Time Tobacco Smoking Status Current Every Day Smoker May Harvey julio [facility] 06/17/2015 17:03:38 What Is Your Level Of Alcohol Consumption? None Information not available 01/14/2015 Is Blood Transfusion Acceptable In An Emergency? Yes Information not available 01/14/2015 What Is Your Level Of Caffeine Consumption? Moderate Information not available 01/14/2015 How Much Tobacco Do You Chew? None Information not available 01/14/2015 In The 14 Days Before Symptom Onset, Have You Had Close Contact With A Laboratory-confir med COVID-19 While That Case Was Ill? No Information not available 02/12/2022 In The 14 Days Before Symptom Onset, Have You Had Close Contact With A Person Who Is Under Investigation For COVID-19 While That Person Was Ill? No Information not available 02/12/2022 Have You Been To An Area Known To Be High Risk For COVID-19? No Information not available 02/12/2022 Are You Currently Employed? Yes Information not available 01/14/2015 What Type Of Diet Are You Following? REGULAR Information not available 01/14/2015 Which Illicit Or Recreational Drugs Have You Used? No Information not available 01/14/2015 Do You Or Have You Ever Used E-cigarettes Or Vape? Never Used Electronic Cigarettes Information not available 08/11/2020 Education 12 Information no t available 01/14/2015 Live Alone Or With Others? With Others Information not available 01/14/2015 What Was The Date Of Your Most Recent Tobacco Screening? 06/19/2024 Information not available 06/19/2024 How Many Children Do You Have? 2 Information not available 06/01/2022 What Is Your Current Pack Years? 10-19packyears Information not available 02/12/2022 Performs Monthly Self-breast Exam? Yes Information no t available 01/14/2015 Do You Use Protection During Sex? No [place] Information not available 07/10/2016 What Is Your Relationship Status? Information not available 01/14/2015 Seat Belts Used Routinely Yes Information not available 01/14/2015 Are You Sexually Active? Yes Information not available 01/14/2015 At What Age Did You Start Smoking Tobacco? 17 Information not available 06/01/2022 Do You Or Have You Ever Used Smokeless Tobacco? Never Used Smokeless Tobacco Information not available 08/11/2020 How Much Tobacco Do You Smoke? 0.5 PPD Information not available 06/19/2024 General Stress Level Medium Information not available 01/14/2015 Do You Use Sunscreen Routinely? Yes Information not available 01/14/2015 Has Tobacco Cessation Counseling Been Provided? Yes Information not available 02/12/2022 On What Date Was Tobacco Cessation Counseling Provided? 06/19/2024 Information not available 06/19/2024 How Many Years Have You Smoked Tobacco? 17 Information not available 06/19/2024 Do You Or Have You Ever Used Any Other Forms Of Tobacco Or Nicotine? No Information not available 02/12/2022 Sex: Female Functional Status Question Answer Note LastModified by Organizat ion Details LastModified Time What is your exercise level? Occasional Information not available 01/14/2015 Mental Status None recorded. Family History Relationship Description Onset Age of this Age Resolved Age Notes LastModified by Organization Details LastModified Time Mother Malignant tumor of breast [place] Not available 2015 16:55:35 Medical History Condition Response Heart Problems N Other N High Blood Pressure N Breast Cancer N Thyroid Problems N Kidney or Bladder Problems N GI Problems N Lung Disease N Depression N Blood Clots N Acne N Eating Disorder N Breast Problem N Anemia N Anesthesia Complications N Headaches/Migraines N Anxiety Disorder N Diabetes N Ovarian Cancer N Muscle, Joint, or Bone Problems N Blood Transfusions N Arthritis N Seizures/Epilepsy N Polyps N Infertility N Acid Reflux (GERD) N Cancer N Stroke N Abuse/Domestic Violence N Asthma N Endometriosis N High Cholesterol N Hepatitis N Liver Disease N Heart Disease N Fibromyalgia N Pre-Eclampsia N Hypertension N Osteoporosis N Kidney Disease N Gynecological History Statement/Question Response Flow Heavy STIs/STDs No HPV Vaccine N Age at Menarche 13 Current Control Method BCPs Age at First Child 21 Sexually Active? Y Menses Monthly N Date of Last Pap Smear 06/19/2024 Sexual Problems? N LMP Approximate Desired Control Method Sterilizati on Obstetrics History GPAL:G 2 P 2 0 0 2 Type Value Multiple Births 0 Full Term 2 Induced 0 Spontaneous 0 Premature 0 Living 2 Ectopics 0 Total 2 Immunizations Vaccine Type Date Status Note Provider Nam e and Address Organization Details Recorded Time COVID-19, mRNA, LNP-S, PF, 30 mcg/0.3 mL dose 07/04/2021 completed Debra Black[place] RMA [place], [place] [facility] 06/19/2024 09:52:25 COVID-19, mRNA, LNP-S, PF, 30 mcg/0.3 mL dose 08/10/2021 completed FRANCIS SotoA [place], [place] [facility] 06/19/2024 09:52:25 Tdap 09/22/2019 completed Not Available [employer] 11/07/2019 02:40:20 Past Encounters Encounter ID Performer Location Encounter Start Date Encounter Closed Date Diagnosis/Indication Diagnosis SNOMED-CT Code Diagnosis ICD10 Code Diagnosis Note [id number] MD Torito Palomares ([employer]) [address] [place] [address] 01/14/2015 10:35:28 01/14/2015 11:13:52 Bacterial vaginosis [id number] Diagnosis d/w pt. Rx flagyl sent to pharmacy. Barry cuba discussed. IUD checke d - no problems [id number] Disorder o f menstruation 245964373 Periods should be regular with the Mirena IUD if she has them, dwp. Pt. instructed to keep a calendar of her periods. If > 35 days between periods, RTO. Pt. expressed understand ing. [id number] MD Torito Palomares ([employer]) [address] [place] [address] 06/17/2015 16:50:35 06/17/2015 17:59:40 Vaginal odor 080786905 IUD checke d - no problems [id number] Pt. wants Mirena IUD removed. She is a smoker. control options discussed. Pt. would like the Copper IUD. Will order and replace Mirena with the copper one. Pain of breast 83588791 Caffeine intake and soy intake discussed. Possible contributi on from IUD discussed. Pressure to breasts from tight bra or LAINE bandage discussed. [id number] MD Torito Palomares ([employer]) [address] [place] [address] 04/02/2016 13:47:45 04/11/2016 16:19:33 Contraception care management 207034071 Z30.9 Increased risk of blood clots with OCPs and smoking d/w pt. Options of the Depo shot, the Nexplanon, and the Copper IUD d/w pt. Pt. desires the Depo shot. Risk of weight gain and irregular bleeding d/w pt. Pt. still wants to change her control to the Depo shot event though she understand s it has the side effect of irregular bleeding which is her reason for getting the MIrena IUD taken out. RTO prior to expiration of Mirena IUD for removal. Bring Depo provera to the appointmen t and will give her first shot. If she wants to have no gaps in her protection from , she may get the Depo shot two weeks prior to Mirena IUD removal, dwp. [id number] MD Torito Palomares ([employer]) [address] [place] [address] 04/11/2016 08:24:45 04/11/2016 16:35:26 Removal of intrauterine device 04120471 Z30.432 Benefits, risks, and alternativ es to Mirena IUd removal d/w pt. Pt. expressed understand ing. All pt. questions answered. Consent signed and in chart. Mirena IUD removed per protocol and without difficulty . Please see procedure note for details. Pt. tolerated the procedure well. She was instructed that her fertility returns immediatel y. Contracept ion care management 212866460 Z30.9 Depo consent reviewed. Pt. instructed to use condoms for 2 weeks. Pt. expressed understand ing and agreement. Sample condoms given. Depo shot given. RTO 3 mo. for next Depo shot. [id number] MD Torito Palomares ([employer]) [address] [facility] [address] [place] [address] 07/10/2016 16:39:41 07/11/2016 16:24:55 Family planning surveillance 814201202 Z30.09 Depo worksheet reviewed. Depo shot given. RTO PRN + 3 mo. for next Depo shot. [id number] RELL Reyna ([place] [address]) [address] [facility] [place] [address] 10/05/2016 10:08:30 10/05/2016 16:36:00 Gynecologic examination 62898566 Z01.419 Contraception care 13878 5005 Z30.40 Nausea 473910377 R11.0 [id number] RELL Reyna ([place] [address]) [address] [facility] [place] [address] 10/31/2016 09:08:58 10/31/2016 13:25:18 Stomach cramps 58421105 R10.9 Venereal d isease screening 771888621 Z11.3 At [facility] risk of urinary tract infection 079094130 Z91.89 [id number] RELL Reyna ([place] [address]) [address] [facility] [place] [address] 12/26/2016 11:10:11 12/31/2016 08:48:51 Contraception care 853753075 Z30.40 [id number] RELL Reyna ([place] [address]) [address] [facility] [place] [address] 02/14/2017 11:55:45 02/19/2017 10:13:40 Vaginal discharge 855844163 N89.8 Candidiasis of vagina 72 149461 B37.3 [id number] RELL Reyna ([place] [address]) [address] [facility] [place] [address] 02/28/2017 13:51:02 03/11/2017 14:03:16 Trying to conceive 422155858 Z31.9 [id number] RELL Reyna 14 OB [address] [facility] [place] [address] 09/16/2018 14:15:34 09/16/2018 16:05:37 At increased risk of urinary tract infection 030455809 Z91.89 Vaginal discharge 716257 006 N89.8 [id number] RELL Reyna OB [address] [place] [address] [place] [address] 03/10/2019 16:34:51 03/11/2019 09:38:15 test positive 715543655 Z32.01 [id number] RELL Reyna OB [address] [place] [address] [place] [address] 03/24/2019 09:45:48 03/25/2019 08:55:25 Gynecologic examination 36820109 Z01.419 Venereal d isease screening 358779706 Z11.3 Routine an tenatal care 101387401 Z34.91 [id number] RELL Reyna OB [address] [place] [address] [place] [address] 04/21/2019 09:05:11 04/21/2019 15:32:23 Routine care 335347994 Z34.91 Bacterial vaginosis 4197 84115 N76.0 [id number] RELL Reyna OB [address] [place] [address] [place] [address] 05/22/2019 14:10:30 05/25/2019 09:15:29 Routine care 699224803 Z34.91 Bacterial vaginosis 4197 74523 N76.0 Did not pear picker rx last month and states she feels like she needs to take meds now. Counseled on STD prevention and condom use. Counseled on yeast and BV prevention . [id number] RELL Reyna OB [address] [place] [address] [place] [address] 06/19/2019 10:03:02 06/19/2019 14:03:15 Routine care 298107513 Z34.91 Placenta previa 97151804 O44.02 [id number] RELL Reyna OB [address] [place] [address] [place] [address] 07/17/2019 10:08:43 07/20/2019 10:19:48 Routine care 192686305 Z34.91 [id number] MD Angel Dockery 14 OB [address] [facility] [place] [address] 08/13/2019 10:27:08 08/14/2019 14:30:39 Normal 29158215 Z34.92 Placenta p revia without hemorrhage - not delivered 275793412 O44.03 [id number] MD Angel Dockery 14 OB [address] [facility] [place] [address] 09/03/2019 10:20:40 09/03/2019 16:30:50 Normal 05263007 Z34.92 [id number] MD Angel Dockery 14 OB [address] [facility] [place] [address] 09/22/2019 10:22:27 09/22/2019 11:03:57 Normal 39896152 Z34.92 Administra tion of diphtheria, pertussis, and tetanus vaccine 320158171 Z23 [id number] MD Angel Dockery 14 OB [address] [facility] [place] [address] 10/06/2019 11:09:05 10/07/2019 11:35:38 Normal 44421363 Z34.92 [id number] MD Angel Dockery 14 OB [address] [facility] [place] [address] 10/22/2019 13:56:23 10/26/2019 08:41:25 depression 06983648 F53.0 [id number] MD Angel Dockery 14 OB [address] [facility] [place] [address] 11/23/2019 11:49:23 11/24/2019 09:13:53 care 190705903 Z39.2 Gynecologi c examination 37247535 Z01.419 Contracept ion care management 160638856 Z30.9 [id number] MD Angel Dockery 14 OB [address] [facility] [place] [address] 02/19/2020 14:25:18 02/23/2020 11:19:29 Contraception care management 751030468 Z30.9 [id number] MD Angel Dockery 14 OB [address] [facility] [place] [address] 05/13/2020 10:56:32 05/16/2020 11:19:40 Contraception care management 413185265 Z30.9 [id number] MD Angel Dockery 14 OB [address] [facility] [place] [address] 08/11/2020 10:18:18 08/12/2020 11:58:51 Contraception care management 903075806 Z30.9 [id number] MD Angel Dockery 14 OB [address] [facility] [place] [address] 11/10/2020 15:08:32 11/11/2020 13:42:17 Contraception care management 765067969 Z30.9 [id number] MD Angel Dockery 14 OB [address] [facility] [place] [address] 02/12/2022 15:53:30 02/13/2022 06:02:35 Gynecologic examination 33738932 Z01.419 Contracept ion care management 246248164 Z30.9 [id number] MD Angel Dockery 14 OB [address] [facility] [place] [address] 06/01/2022 14:17:47 06/04/2022 09:50:27 Vaginal discharge 720052299 N89.8 [id number] MD Angel Dockery 14 OB [address] [facility] [place] [address] 02/18/2024 10:46:36 02/19/2024 09:51:39 Positive screening for depression on PHQ-9 (Patient Health Questionnaire 9) 9238957827 11781 Z13.31 Overweight 726002519 E66 .3 [place] 16329554 N 94.0 [id number] MD Angel Dockery 14 OB [address] [facility] [place] [address] 06/19/2024 09:40:50 06/20/2024 07:17:35 Smoker 89556144 F17.200 Overweight 615342494 E66 .3 Gynecologi c examination 28639892 Z01.419 Contracept ion care management 382870776 Z30.9 Health Concerns Section Related Observation LastModified by Organization Detai ls LastModified Time None Recorded Concern Status LastModified by Organization Details LastModified Time None Recorded Advance Directives Directive None Recorded Payers Encounter Date Sequence Insurance Name Policy Number Policy Lynn Covered Member ID Lynn Member ID Guarantor Name 11/10/2020 1 [facility] [id number] Gabriele Spears [id number] Emily [place] 02/12/2022 1 [facility] [id number] Gabriele Spears [id number] Emily Regan 06/01/2022 1 [facility] [id number] Gabriele Spears [id number] Emily Regan 02/18/2024 1 [facility] [id number] Gabriele Spears [id number] Emily Regan 06/19/2024 1 [facility] [id number] Gabriele Spears [id number] Emily Regan Notes Date Note Type Note Provider Name and Address Organization Details Recorded Time 11/10/2020 text/html discussed BTL at length. discussed depo, OCPs, etc. Antoni Lau MD Attn: [address] [place], [address], [facility] 11/10/2020 16:55:16 02/12/2022 text/html Annual GYNReport ed bypatient.Menstrual cycle:Menorrhagia Urinary symptoms:No hematuria; No incontinence Vulva:No genital lesion Vagina:Normal vaginal discharge Breast:No breast pain; No breast lump; No nipple discharge Current Contraception:Oral contraceptives Sexual complaints:No sexual complaints; No pain during intercourse; Normal libido Menopausal Symptoms:No menopausal symptoms; Normal vaginal lubrication Psychological symptoms:No depression; No anxiety; No PMDD after discussion, it turns out she is still on a progesterone only pill left over from last baby ( 2019) Antoni Lau MD Attn: [address] [place], [address], [facility] 02/12/2022 16:34:37 02/18/2024 text/html Otherwise health y 33 y.o. with recent cyclic ovulatory pain. Had imaging that showed a 2 cm simple cyst of rt ovary recently kids are 11 &4, not trying to conceive currently Antoni Lau MD Attn: [address] [place], [address], [facility] 02/18/2024 11:39:35 06/19/2024 text/html Annual GYNReport ed bypatient.Urinary symptoms:No hematuria; No incontinence Vulva:No genital lesion Vagina:Normal vaginal discharge Breast:No breast pain; No breast lump; No nipple discharge Current Contraception:Oral contraceptives Sexual complaints:No sexual complaints; No pain during intercourse; Normal libido Menopausal Symptoms:No menopausal symptoms; Normal vaginal lubrication Psychological symptoms:No depression; No anxiety; No PMDD still having some monthly cramps with period despite cyclic OCPsno ovulatory-type paindiscussed BTL risks vs vasectomy Antoni Lau MD Attn: [address] [facility], [place], [address], [facility] 06/19/2024 10:18:37 OBGyn Episode Ob Episode Information Episode Created Date Number of Fetuses Patient Bloodtype Patient rh Status Prepregnancy Weight lbs Domestic Partner Domestic Partner Phone Father Name Welder Fitter Gas Status 03/10/20 19 1 A Positive CLOSED Fetus Data First Name Last Name Admitted to NICU Weight (g) Sex Living Outcome Pediatric Complications Fetus ID Race Codes Race Delivery Type Michael Moss n false 2863.29 95 M true Full Term [id number] White Vaginal Problems Problem Notes Problem Name Start Date End Date Resolution Snomed Code Not e Placenta previa [id number] Sorin Calculation Initial Sorin Date Initial Exam Date Initial Exam Provider Initial Ultrasound Date Last Menstrual Period Date Ultra Sound Weeks Gestation 10/30/2019 03/10/2019 [email or web address] 03/13/2019 01/23/2019 7 Eighteen To Twenty Week Sorin Update Ultra Sound Date Fundal Height At Umbil Quickening Date Ultra Sound Latest Weeks Gestation Final Sorin Confirmed By Final Sorin Confirmed Date Final Sorin Date Ultra Sound Latest Days Gestation 05/29/20 19 17 deldredsmith 06/19/2019 020 4 Pre- Flowsheet Flowsheet Date 03/10/2019 Parkinson Score Blood Edema Fundus Height Fundus Units Glucose Ketones Leukocytes Nitrite Labor Signs Protein Cervic Dilation Cervic Effacement Cervic Station Type Weight in lbs Pre/Post Dialysis Refused Weight 153.929353836266 BP Diastolic BP Location Tested BP Systolic BP Type 64 122 sitting Fetus Heart Rate Present Fetus Movement Comments New ob labs and ultrasound o rder given. Will follow up in 4 weeks, sooner if needed. Does not have any complaints. No past medical history. Flowsheet Date 03/24/2019 Parkinson Score Blood Edema Fundus Height Fundus Units Glucose Ketones Leukocytes Nitrite Labor Signs Protein Cervic Dilation Cervic Effacement Cervic Station none Type Weight in lbs Pre/Post Dialysis Refused Weight 151.189332839329 BP Diastolic BP Location Tested BP Systolic BP Type 74 118 sitting Fetus Heart Rate Present Fetus Movement Comments Doing well with no complaint s. Pap and nuswab done and sent to lab. Follow up in 4 weeks, sooner if needed. Flowsheet Date 04/21/2019 Parkinson Score Blood Edema Fundus Height Fundus Units Glucose Ketones Leukocytes Nitrite Labor Signs Protein Cervic Dilation Cervic Effacement Cervic Station none Type Weight in lbs Pre/Post Dialysis Refused Weight 151.54127373217 BP Diastolic BP Location Tested BP Systolic BP Type 70 118 sitting Fetus Heart Rate Present Fetus Movement Comments Doing well with no complaint s. Was recently treated with a zpack by her pcp for ear infection and sore throat (04/13). pt completed antibiotic but still feels the sore throat (better). Was told to call pcp back in a few days for follow up. Will treat for bv as pt states she is symptomatic. Follow up in 4 weeks, sooner if needed. Flowsheet Date 05/22/2019 Parkinson Score Blood Edema Fundus Height Fundus Units Glucose Ketones Leukocytes Nitrite Labor Signs Protein Cervic Dilation Cervic Effacement Cervic Station none none Type Weight in lbs Pre/Post Dialysis Refused Weight 150.005322622367 BP Diastolic BP Location Tested BP Systolic BP Type 60 108 sitting Fetus Heart Rate Present A 158 Present Fetus Movement A Yes Comments Doing well with no complaint s. States she notices cramping when she is doing too much . States she lies down or rests when it starts and it will go away. Counseled pt on reasons to go to L and D including leaking of fluid, cramping that does not go away with hydration or rest. Pt verbalized understanding. Will resend meds for BV, pt didnt take when diagnosed bc she thought it would go away. Us order given.RTC in 4 weeks, sooner if needed. Does not want afp. Flowsheet Date 06/19/2019 Parkinson Score Blood Edema Fundus Height Fundus Units Glucose Ketones Leukocytes Nitrite Labor Signs Protein Cervic Dilation Cervic Effacement Cervic Station none 21 cm none Type Weight in lbs Pre/Post Dialysis Refused Weight 150.964937166349 BP Diastolic BP Location Tested BP Systolic BP Type 62 114 sitting Fetus Heart Rate Present A 150 Present Fetus Movement A Yes Comments pt doing well with no compla ints. reviewed ultrasound results showing placenta previa. pt educated on what previa is and when to go to hospital- bleeding, leaking of fluids and decreased movement. pt educated on pelvic rest including no intercourse at this time. pt given follow up ultrasound. pt verbalized understanding. follow up in 4 weeks, sooner if needed. Flowsheet Date 07/17/2019 Parkinson Score Blood Edema Fundus Height Fundus Units Glucose Ketones Leukocytes Nitrite Labor Signs Protein Cervic Dilation Cervic Effacement Cervic Station none 25 cm none Type Weight in lbs Pre/Post Dialysis Refused Weight 149.544462872397 BP Diastolic BP Location Tested BP Systolic BP Type 62 112 sitting Fetus Heart Rate Present A 140 Present Fetus Movement A Yes Comments doing well, having a boy. di scussed placenta previa and possible indications for c/s. pt has no complaints. one hour glucose done today. discussed reasons to go to labor and delivery. rtc in [address] lau, sooner if needed. Flowsheet Date 08/13/2019 Parkinson Score Blood Edema Fundus Height Fundus Units Glucose Ketones Leukocytes Nitrite Labor Signs Protein Cervic Dilation Cervic Effacement Cervic Station none 27 cm none neg Type Weight in lbs Pre/Post Dialysis Refused With clothes 152.846124773855 BP Diastolic BP Location Tested BP Systolic BP Type 67 108 sitting Fetus Heart Rate Present A 140 Present Fetus Movement Comments doing well. Discussed placen ta previa and need for f/u / [facility] spontaneous, epidural, short pushing, ( on deployment at time) Flowsheet Date 09/03/2019 Parkinson Score Blood Edema Fundus Height Fundus Units Glucose Ketones Leukocytes Nitrite Labor Signs Protein Cervic Dilation Cervic Effacement Cervic Station none 31 cm Type Weight in lbs Pre/Post Dialysis Refused With clothes 153.759801731005 BP Diastolic BP Location Tested BP Systolic BP Type 76 116 sitting Fetus Heart Rate Present A 147 Present Fetus Movement A Yes Comments doing well, wants btl: will sign papers next timeGBS next visit as wellprevia resolved on 08/18 US! Flowsheet Date 09/22/2019 Parkinson Score Blood Edema Fundus Height Fundus Units Glucose Ketones Leukocytes Nitrite Labor Signs Protein Cervic Dilation Cervic Effacement Cervic Station none 33 cm Type Weight in lbs Pre/Post Dialysis Refused With clothes 154.806084585575 BP Diastolic BP Location Tested BP Systolic BP Type 78 102 sitting Fetus Heart Rate Present A 147 Present Fetus Movement A Yes Comments doing well, GBS and TDAP tod aysigned BTL papersgood spirits, cervix check next visit Flowsheet Date 10/06/2019 Parkinson Score Blood Edema Fundus Height Fundus Units Glucose Ketones Leukocytes Nitrite Labor Signs Protein Cervic Dilation Cervic Effacement Cervic Station none 34 cm 1cm 50% -3 Type Weight in lbs Pre/Post Dialysis Refused With clothes 149.281266928335 BP Diastolic BP Location Tested BP Systolic BP Type 76 92 sitting Fetus Heart Rate Present A 145 Present Fetus Movement A Yes Comments Second baby, doing well, a f ew ctx starting.soft cervix 1.5 cm/50%labor reviewed Menstrual History Last Menstrual Date Menses Monthly On Bcp Conception Prior Menses Frequency Hcg Plus Date Menarche Onset Age 0401/23/2019 Genetic Screening And Infection History Question Response Note Patient's Age Will Be 35 Years Or Older At Estim ated Date of Delivery false Thalassemia (Israeli, Bhutanese, Mediterranean, Or Background): MCV < 80 false Neural Tube Defect (Meningomyelocele, Spina Bifi da, Or Anencephaly) false Congenital Heart Defect false Down Syndrome false Loco-Sachs (eg, Church, Cajun, [place]serratian-[place]) f alse Trey Disease false Sickle Cell Disease Or Trait () false Hemophilia Or Other Blood Disorders false Muscular Dystrophy false Cystic Fibrosis false [place]'s Chorea false Mental Retardation/Autism false If Yes, Was Person Tested For Fragile X? false Other Inherited Genetic Or Chromosomal Disorder false Maternal Metabolic Disorder (eg, Type 1 Diabetes , PKU) false Patient Or Baby's Father Had A Child With Defects Not Listed Above false Recurrent Loss, Or A Stillbirth false Medications (including Suppl ements, Vitamins, Herbs, OTC Drugs), Illicit/Recreational Drugs, Alcohol false If Yes, Agent(s) And Strength/Dosage false Any Other Genetic History false Live With Someone With TB Or Exposed To TB false Patient Or Partner Has History Of Genital Herpes false Rash Or Viral Illness Since Last Menstrual Perio d false History Of STD, Gonorrhea, Chlamydia, HPV, Syphi lis false Other Infection History false History of HIV false History of Hepatitis false Prior GBS-infected child false Plans and Education First Trimester Discussed Date Discussion Item Discussion Note Discuss ed By 03/10/2019 Anticipated course of care deldredsmit 03/10/2019 Alcohol deleds03/10/2019 Intimate partner violence [facility] 03/10/2019 Environmental/work hazards d el 03/10/2019 Screening for aneuploidy del ds03/10/2019 Nutrition counseling ; special diet; dietary precautions (mercury, listeriosis) deldr 03/10/2019 Childbirth classes/hospital facilities deldreds03/10/2019 HIV and other routine tests deldreds03/10/2019 Risk factors identif ied by history dreds03/10/2019 Weight gain counseling deldr eds03/10/2019 Exercise deldreds03/10/2019 Teratogens deldr 03/10/2019 Use of any medicatio ns (including supplements, vitamins, herbs, or OTC drugs) deldredsmit03/10/2019 deldredsmit 03/10/2019 Sexual activity deldredsmit03/10/2019 Tobacco/smoking cess ation counseling (ask, advise, assess, assist, and arrange) deldreds03/10/2019 Illicit/recreational drugs d eldr 03/10/2019 Dental care deldredsmit03/10/2019 Travel deldredsmit03/10/2019 Seat belt use deldredsmit03/10/2019 Indications for ultrasonography deldredsmit03/10/2019 Avoidance of saunas or hot tubs [facility] 03/10/2019 Toxoplasmosis precautions (cats/raw meat) [facility] Second Trimester Discussed Date Discussion Item Discussion Note Discuss ed By 03/10/2019 Selecting a care provider [facility] 03/10/[address]/tubal sterilization [facility] 03/10/2019 Depression screening (when indicated) [facility] 03/10/2019 Abnormal lab values [facility] 03/10/2019 Signs and symptoms of labor [facility] 03/10/2019 Intimate partner violence de [facility] 03/10/2019 Tobacco/smoking cess ation counseling (ask, advise, assess, assist, and arrange) [facility] Third Trimester Discussed Date Discussion Item Discussion Note Discuss ed By Delivery Information Delivery Date Delivery Type Labor Anesthesia Weeks Gestation Incision Type Labor Labor Length Hrs Delivered By Post Complications Tubal Sterilization Discharge Date Comments 9 [facility] Lau false 10/10/2019 Discharge Information Feeding Method Contraceptive Method Maternal HG B and HCT Levels Breast Ob Episode Information Episode Created Date Number of Fetuses Patient Bloodtype Patient rh Status Prepregnancy Weight lbs Domestic Partner Domestic Partner Phone Father Name Welder Fitter Gas Status 01/15/20 15 1 CLOSED Fetus Data First Name Last Name Admitted to NICU Weight (g) Sex Living Outcome Pediatric Complications Fetus ID Race Codes Race Delivery Type 2694.33 [id number] [id number] Vaginal Sorin Calculation Initial Sorin Date Initial Exam Date Initial Exam Provider Initial Ultrasound Date Last Menstrual Period Date Ultra Sound Weeks Gestation 0 Eighteen To Twenty Week Sorin Update Ultra Sound Date Fundal Height At Umbil Quickening Date Ultra Sound Latest Weeks Gestation Final Sorin Confirmed By Final Sorin Confirmed Date Final Sorin Date Ultra Sound Latest Days Gestation 0 0 Menstrual History Last Menstrual Date Menses Monthly On Bcp Conception Prior Menses Frequency Hcg Plus Date Menarche Onset Age Delivery Information Delivery Date Delivery Type Labor Anesthesia Weeks Gestation Incision Type Labor Labor Length Hrs Delivered By Post Complications Tubal Sterilization Discharge Date Comments 3 Discharge Information Feeding Method Contraceptive Method Maternal HG B and HCT Levels
--- OUTSIDE RECORDS SUMMARY | 2025-02-18 08:23 | XMS_ITS | Clinical Summary ---
Author Organization [facility] Address [address] [place] [address] Phone Care Team Providers Care City Plant Supervisor Name Role Phone CHRIS PORRAS DO Primary Care Provider [phone] Reason for Visit and Chief Complaint The Chief Complaint is: Pt c/o R ankle/foot pain that started yesterday am upon waking up. Pt denies injury. Pt tried ice for the edema but it did not help. Pt states yesterday she could not bare weight, today it is a little better pain donald.Pt states that edema is still present. Pt is concerned about stress fracture. ~Pt has tried elevating the foot, ice, on and off for 1 hour last night but pain and edema did not get better. Pt has tried tramadol from an old rx, took two with no relief. Pt has also taken tylenol Problems Includes: Problems addressed during this encounter and other active Problems No Active Problems Plan of Treatment - Return to the clinic if condition worsens or new symptoms arise - Last Documented On 07/21/2022 1:18PM ; [facility] - Watch for signs/symptoms of infection - Last Documented On 07/21/2022 1:18PM ; [facility] - Medication instruction - Last Documented On 07/21/2022 1:18PM ; [facility] - Continue current medication - Last Documented On 07/21/2022 1:18PM ; [facility] - Follow-up visit - Last Documented On 07/21/2022 1:18PM ; [facility] PLAN [Use for s.o.a.p. note free text]. - Last Documented On 07/21/2022 1:18PM ; [facility] She was advised to apply ice for the first 24 hours and then ice and heat alternatively with 5-minute icing and followed by 10-minute heat. She was advised taking ibuprofen 2 tablets three times a day. If symptoms persist/worsens call or report back. Will consider with x ray for further evaluation. - Last Documented On 07/21/2022 1:18PM ; [facility] Instructions to patient Watch for signs/symptoms of infection Last Documented On 2 2:16PM ; [facility] Intervention and counseling on cessation of tobacco use Last Documented On 2 1:57PM ; [facility] Assessments Includes: Assessments from this encounter Findings - Sprain of the anterior tibiotalar ligament of the right ankle [S93.421A - Sprain of deltoid ligament of right ankle, initial encounter] - Last Documented On 07/21/2022 1:18PM ; [facility] - Sprain of the tibionavicular ligament of the right ankle [S93.421A - Sprain of deltoid ligament of right ankle, initial encounter] - Last Documented On 07/21/2022 1:18PM ; [facility] Instructions Includes: Instructions from this encounter Instructions to patient Watch for signs/symptoms of infection Last Documented On 2 2:16PM ; [facility] Intervention and counseling on cessation of tobacco use Last Documented On 2 1:57PM ; [facility] Medical Equipment - Implanted Devices Includes: Current Devices No Medical Equipment Recorded Medications Includes: Medications discussed during this encounter and other current Medications Discontinued / Stopped on this date EVELINE ZACARIAS on 02/16/2022 Azithromycin 500 MG Oral Tablet Provider: EVELINE ZACARIAS Diagnosis: Acute maxillary sinusitis, unspecified Last Documented On 07/19/2022 1:56PM By Damaris THOMSON ; [facility] Medrol 4 MG Oral Tablet Therapy Pack Prov ider: EVELINE ZACARIAS Diagnosis: Pleurisy Last Documented On 07/19/2022 1:56PM By Damaris THOMSON ; [facility] Current Medications (continue as prescribed) Medrol 4 MG Oral Tablet Therapy Pack 11/29/2022 Provider: CHRIS PORRAS DO Diagnosis: Pain in unspecif ied joint as directed Last Documented On 11/29/2022 4:59PM By Neal Encinas ; [facility] Cyclobenzaprine HCl 10 MG Oral Tablet 11/15/2022 Provider: TORY ALVAREZ Diagnosis: Lumbago with sci atica, right side 1/2- 1 tablet po q8 hours pr n for back pain Last Documented On 2:16PM By Tory ALVAREZ ; [facility] Pantoprazole Sodium 40 MG Oral Tablet Delayed Release 09/27/2022 Provider: Diagnosis: Last Documented On 11/15/2022 2:05PM By Clover Slaughter MA ; [facility] Albuterol Sulfate HFA 108 (90 Base) MCG/ACT Inhalation Aerosol Solution 01/19/2022 Provider: TORY ALVAREZ Diagnosis: Acute bronchitis , unspecified as directed 2 puffs inhaled q4-6 hours prn Last Documented On 4:17PM By Tory ALVAREZ ; [facility] Omeprazole 20 MG Oral Capsule Delayed Release 07/25/2021 Provider: JUAN VÁSQUEZ PMPCarlaBC NURSE AIDE EVALUATOR-BC Diagnosis: Gastro-esophagea l reflux dis with esophagitis, without bleed 1 Capsule every morning Last Documented On 07/19/2022 1:56PM By Damaris THOMSON ; [facility] Norethin Seven-Eth Estrad-FE 1-20 MG-MCG Oral Tablet Provider: Diagnosis: Last Documented On 07/11/2021 2:25PM By Damaris THOMSON ; [facility] Medications Administered Includes: Administered Medications from this encounter No Administered Medications Recorded Vital Signs Includes: Vital Signs from this encounter Vital Name 07/19/2022 01:57P Blood Pressure Sitting L 126/74 BP Cuff Size Regular Pulse Rate-Sitting (bpm) 100 Respiration Rate (breaths/min) 20 Temp-Oral (F) 98.4 Height (in) 60 Weight (lb) 127 Body Mass Index (kg/m2) 24.8 Body Surface Area (m2) 1.5 Oxygen Saturation (%) 98 Last Documented: On 07/19/2022 1:59PM ; [facility] Results Includes: Results discussed during this encounter No Results Recorded For Specified Dates History of Present Illness Includes: History of Present Illness from this encounter BRODY CORRAL is a 32 year old female. - Allergy list reviewed - Medication list reviewed - Musculoskeletal symptoms Patient is a pleasant 32-year-old female, who presents today with acute concern. She complains of right foot and ankle pain. The patient mentions that she woke up yesterday morning with excruciating pain. Her pain was better this morning but aggravated when she started walking. She denies any injury or trauma. She also has right foot edema. She tried elevating the feet and applying ice without improvement. She also had tried Tylenol and tramadol without benefits. The symptoms have been bothering her and is concerned about the same. Social History Description Last Updated Former smoker 11/29/2022 Last Documented On 2 1:56PM ; [facility] Current smoker 11/15/2022 Last Documented On 2 1:56PM ; [facility] Current nonsmoker 03/23/2021 Last Documented On 2 1:56PM ; [facility] Smoking status : Never smoker 11/29/2019 Last Documented On 2 1:56PM ; [facility] Currently in school 04/27/2009 Last Documented On 2 1:56PM ; [facility] Lives with parents 04/27/2009 Last Documented On 2 1:56PM ; [facility] Procedures and Surgical History Includes: Procedures from this encounter Procedures Code Diagnosis Performing Provider Service L ocation Service Date plan of care reviewed and agreed to Last Documented On 2 2:16PM ; [facility] plan of care reviewed and agreed to by t he patient Last Documented On 2 2:16PM ; [facility] intervention and 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 4000F Last Documented On 2 1:57PM ; [facility] use of tobacco assessment performed 1000F Last Documented On 2 1:57PM ; [facility] standardized depression screening: negative for symptoms 3351F Last Documented On 2 1:56PM ; [facility] review of medications documented 1160F Last Documented On 2 1:57PM ; [facility] assessment of suicide risk performed Last Documented On 2 1:56PM ; [facility] screening for adult depression: impressi on and score 0 Last Documented On 2 1:56PM ; [facility] Pt encouraged to be compliant with curre nt treatment Last Documented On 2 2:16PM ; [facility] Medical History Includes: Medical History addressed during this encounter Description Last Updated LMP: 07/15/2022 pt not regular due to BC pills 07/19/2022 Last Documented On 2 1:18PM ; [facility] No Contact with and (Suspected) exposure to COVID-19 02/16/2022 Last Documented On 2 1:56PM ; [facility] No fall 02/16/2022 Last Documented On 2 1:56PM ; [facility] No recent change in medical history 06/22 Last Documented On 2 1:56PM ; [facility] Taking OTC pain medication /fever. Using Tylenol 11/29/2019 Last Documented On 2 1:56PM ; [facility] No exposure to a contagious disease 08/21 Last Documented On 2 1:56PM ; [facility] Taking OTC medications 09/02/2019 Last Documented On 2 1:56PM ; [facility] History of length at : 20 in 2008 Last Documented On 2 1:56PM ; [facility] Patient's weight: 5 lbs 14 oz 05/2009 Last Documented On 2 1:56PM ; [facility] Vaginal delivery 04/27/2009 Last Documented On 2 1:56PM ; [facility] Family History Includes: Family History addressed during this encounter Description Last Updated Family history of Cancer 07/19/2022 Last Documented On 2 1:18PM ; [facility] Review of Systems Includes: Review of Systems from this encounter Systemic: No edema. Head: No headache. Cardiovascular: No chest pain or discomfort and no palpitations. Pulmonary: No dyspnea and not expressed as feeling short of breath. Musculoskeletal: Pain localized to one or more joints. Neurological: No dizziness. Psychological: No sleep disturbances. Mental Status Includes: Mental Status from this encounter Description Oriented to time, place, and person Functional Status Includes: Functional Status from this encounter No Functional Status Recorded Physical Exam Includes: Physical Exam from this encounter Allergies Includes: Active Allergies Substance Type Reaction Onset Date Resolved Date Statu s Penicillins Allergy 04/27/2009 Active Last Documented On 3 4:01PM ; [facility] Encounters Encounter Provider Location Date Check-In Time Check-Out Time Diagnosis PROBLEM VISIT CHRIS PORRAS [facility] 022 1:44PM 2:11PM Ankle Sprain Anterior Tibiotalar Ligament Right,Ankle Sprain Tibionavicular Ligament Right Insurance Includes: Active Insurance Policies Plan Name Member ID Group # Subscriber Relationship Effect thuan Dates 1 - [facility] [id number] OSCAR CORRAL Clinical Notes Includes: Clinical Notes from this encounter No Clinical Notes Recorded
--- OUTSIDE RECORDS SUMMARY | 2025-02-18 08:25 | XMS_ITS | Clinical Summary ---
Author Organization [facility] Address [address] [place] [address] Phone Care Team Providers Care Tail Worker Name Role Phone CHRIS PORRAS DO Primary Care Provider [phone] Reason for Visit and Chief Complaint REFERRAL Problems Includes: Problems addressed during this encounter and other active Problems No Active Problems Plan of Treatment Referrals To Diagnosis Sales Correspondence Clerk [facility] [address] [place] [address] Gastro-esophageal reflux dis with esophagitis, without bleed Note: FAX [phone] Last Documented On 3 4:06PM ; [facility] Assessments Includes: Assessments from this encounter [...] On 11/29/2022 4:59PM By Neal Encinas ; [facility] Cyclobenzaprine HCl 10 MG Oral Tablet 11/15/2022 Provider: TORY ALVAREZ Diagnosis: Lumbago with sci atica, right side 1/2- 1 tablet po q8 hours pr n for back pain Last Documented On 3 2:16PM By Tory ALVAREZ ; [facility] Pantoprazole Sodium 40 MG Oral Tablet Delayed Release 09/27/2022 Provider: Diagnosis: Last Documented On 11/15/2022 2:05PM By Clover Slaughter MA ; [facility] Albuterol Sulfate HFA 108 (90 Base) MCG/ACT Inhalation Aerosol Solution 01/19/2022 Provider: TORY SANTIAGO RESEARCH LABORATORY SPECIALIST-C Diagnosis: Acute bronchitis , unspecified as directed 2 puffs inhaled q4-6 hours prn Last Documented On 2 4:17PM By Tory Santiago RESEARCH LABORATORY SPECIALIST-C ; [facility] Omeprazole 20 MG Oral Capsule Delayed Release 07/25/2021 Provider: JUAN VÁSUQEZ [facility] RESEARCH LABORATORY SPECIALIST-BC Diagnosis: Gastro-esophagea l reflux dis with esophagitis, without bleed 1 Capsule every morning Last Documented On 07/19/2022 1:56PM By Damaris Jordan Chris ; [facility] Norethin Seven-Eth Estrad-FE 1-20 MG-MCG Oral Tablet Provider: Diagnosis: Last Documented On 07/11/2021 2:25PM By Damaris THOMSON ; [facility] Medications Administered Includes: Administered Medications from [...] Active Last Documented On 3 4:01PM ; [facility] Encounters Encounter Provider Location Date Check-In Time Check-Out Time Diagnosis REFERRAL CHRIS PORRAS DO 09/10/2022 8:38AM 11:59PM Insurance Includes: Active Insurance Policies Plan Name Member ID Group # Subscriber Relationship Effect thuan Dates 1 - [facility] [id number] OSCAR CORRAL Clinical Notes Includes: Clinical Notes from this encounter No Clinical Notes Recorded
--- OUTSIDE RECORDS SUMMARY | 2025-02-18 08:25 | XMS_ITS | Clinical Summary ---
Author Organization [facility] Address [address] [place] [address] Phone Care Team Providers Care Traditional Maori Health Practitioner Name Role Phone CHRIS PORRAS DO Primary Care Provider [phone] Reason for Visit and Chief Complaint The [...] - Last Documented On 11/15/2022 2:16PM ; [facility] Assessments Includes: Assessments from this encounter Findings - Lumbago with right-side sciatica [M54.41 - Lumbago with sciatica, right side] - Last Documented On 11/15/2022 2:16PM ; [facility] Medical Equipment - Implanted Devices Includes: [...] hours pr n for back pain Pharmacy: [facility] ([place] - [address] , [facility], [phone] - Last Documented On 01/26/202 3 2:16PM By Tory ALVAREZ ; [facility] predniSONE 20 MG Oral Tablet Provider: TORY ALVAREZ 6 day supply: 9 tablet, 0 refills Diagnosis: Lumbago with sciatica, right side as directed 2 tab po qd x 3 then 1 tab po qd x 3 Pharmacy: [facility] [address] ([place] , [facility], [phone] - Last Documented On 11/29/2022 4:00PM By Damaris THOMSON ; [facility] Current Medications (continue as prescribed) Medrol 4 MG Oral Tablet Therapy Pack 11/29/2022 Provider: CHRIS PORRAS DO Diagnosis: Pain in unspecif ied joint as directed Last Documented On 11/29/2022 4:59PM By Neal Encinas ; [facility] Pantoprazole Sodium 40 MG Oral Tablet Delayed Release 09/27/2022 Provider: Diagnosis: Last Documented On 11/15/2022 2:05PM By Clover Slaughter MA ; [facility] Albuterol Sulfate HFA 108 (90 Base) MCG/ACT Inhalation Aerosol Solution 01/19/2022 Provider: TORY RINCONC Diagnosis: Acute bronchitis , unspecified as directed 2 puffs inhaled q4-6 hours prn Last Documented On 2 4:17PM By Tory ALVAREZ ; [facility] Omeprazole 20 MG Oral Capsule Delayed Release 07/25/2021 Provider: JUAN V[facility]SQUEZ [facility] SENIOR MAINFRAME PROGRAMMER ANALYST- Diagnosis: Gastro-esophagea l reflux dis with esophagitis, without bleed 1 Capsule every morning Last Documented On 07/19/2022 1:56PM By Damaris THOMSON ; [facility] Norethin Seven-Eth Estrad-FE 1-20 MG-MCG Oral Tablet Provider: Diagnosis: Last Documented On 07/11/2021 2:25PM By Damaris THOMSON ; [facility] Medications Administered Includes: Administered Medications from [...] 98 Last Documented: On 11/15/2022 2:08PM ; [facility] Results Includes: Results discussed during this [...] 11/15/2022 Last Documented On 3 2:16PM ; [facility] Smoking Status Unknown Procedures and Surgical History Includes: Procedures from this encounter Procedures Code Diagnosis Performing Provider Service L ocation Service Date use of tobacco assessment performed 1000F Last Documented On 3 2:07PM ; [facility] Medical History Includes: Medical History addressed [...] Active Last Documented On 3 4:01PM ; [facility] Encounters Encounter Provider Location Date Check-In Time Check-Out Time Diagnosis WALK IN PATIENT - ESTABLISHED PT TORY RINCONC [facility] 11/15/19 23 2:08PM 2:15PM Lumbago with Sciatica Right-side Insurance Includes: Active Insurance Policies Plan Name Member ID Group # Subscriber Relationship Effect thuan Dates 1 - [facility] [id number] OSCAR CORRAL Clinical Notes Includes: Clinical Notes from this encounter * Progress note Date Encounter Last Documented by 11/15/2022 WALK IN PATIENT - ESTABLISHED PT Last documented on 11/15/2022; 2:16 PM, TORYJaylon BAUMANP-C; [facility] Chief Complaint The Chief Complaint [...]
--- OUTSIDE RECORDS SUMMARY | 2025-02-18 08:25 | XMS_ITS | Clinical Summary ---
Author Organization [facility] Address [address] [place] [address] Phone Care Team Providers Care Production Team Member Name Role Phone CHRIS PORRAS DO Primary Care Provider [phone] Reason for Visit and Chief Complaint NO [...] On 11/29/2022 4:59PM By Neal Encinas ; [facility] Cyclobenzaprine HCl 10 MG Oral Tablet 11/15/2022 Provider: TORY ALVAREZ Diagnosis: Lumbago with sci atica, right side 1/2- 1 tablet po q8 hours pr n for back pain Last Documented On 3 2:16PM By Tory ALVAREZ ; [facility] Pantoprazole Sodium 40 MG Oral Tablet Delayed Release 09/27/2022 Provider: Diagnosis: Last Documented On 11/15/2022 2:05PM By Clover Slaughter MA ; [facility] Albuterol Sulfate HFA 108 (90 Base) MCG/ACT Inhalation Aerosol Solution 01/19/2022 Provider: TORY ALVAREZ Diagnosis: Acute bronchitis , unspecified as directed 2 puffs inhaled q4-6 hours prn Last Documented On 2 4:17PM By Tory Murrell CERAMIC MAKER DEMONSTRATOR-C ; [facility] Omeprazole 20 MG Oral Capsule Delayed Release 07/25/2021 Provider: JUAN VÁSQUEZ PMHNP-BC CERAMIC MAKER DEMONSTRATOR-BC Diagnosis: Gastro-esophagea l reflux dis with esophagitis, without bleed 1 Capsule every morning Last Documented On 07/19/2022 1:56PM By Damaris THOMSON ; [facility] Norethin Seven-Eth Estrad-FE 1-20 MG-MCG Oral Tablet Provider: Diagnosis: Last Documented On 07/11/2021 2:25PM By Damaris THOMSON ; [facility] Medications Administered Includes: Administered Medications from [...] Active Last Documented On 3 4:01PM ; [facility] Encounters Encounter Provider Location Date Check-In Time Check-Out Time Diagnosis NO SHOW CHRIS PORRAS [facility] 3 4:15PM 11:59PM Insurance Includes: Active Insurance Policies Plan Name Member ID Group # Subscriber Relationship Effect thuan Dates 1 - [facility] [id number] OSCAR CORRAL A Clinical Notes Includes: Clinical Notes from this encounter No Clinical Notes Recorded
--- OUTSIDE RECORDS SUMMARY | 2025-02-18 08:25 | XMS_ITS ---
Author Organization 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 Note: Unchanged Plan of Treatment Findings Encounter Date Go to the emergency room if condition worsens PROBLEM VISIT with CHRIS PORRAS DO 11/29/2022 Last Documented On 3 8:36PM ; [facility] Medication instruction PROBLEM VISIT with CHRIS PORRAS DO 11/29/2022 Last Documented On 3 8:36PM ; [facility] Ordered follow-up visit PROBLEM VISIT with CHRIS PORRAS DO 11/29/2022 Last Documented On 3 8:36PM ; [facility] Ordered prednisone PROBLEM VISIT with CHRIS LOBO DO 11/29/2022 Last Documented On 3 8:36PM ; [facility] Ordered return to the clinic if condition worsens or new symptoms arise PROBLEM VISIT with CHRIS PORRAS DO 11/29/2022 Last Documented On 3 8:36PM ; [facility] PLAN [Use for s.o.a.p. note free text] PROBLEM VISIT with CHRIS PORRAS DO 11/29/2022 Last Documented On 3 8:36PM ; [facility] Requested Physical Therapy PROBLEM VISIT with SEVERO PORRAS DO 11/29/2022 Last Documented On 3 8:36PM ; [facility] Watch for signs/symptoms of infection [place] OBLEM VISIT with CHRIS PORRAS DO 11/29/2022 Last Documented On 3 8:36PM ; [facility] Continue current medication PROBLEM VISIT with Rain PORRAS DO 07/19/2022 Last Documented On 2 1:18PM ; [facility] Medication instruction PROBLEM VISIT with CHRIS PORRAS DO 07/19/2022 Last Documented On 2 1:18PM ; [facility] Ordered follow-up visit PROBLEM VISIT with CHRIS PORRAS DO 07/19/2022 Last Documented On 2 1:18PM ; [facility] Ordered return to the clinic if condition worsens or new symptoms arise PROBLEM VISIT with CHRIS PORRAS DO 07/19/2022 Last Documented On 2 1:18PM ; [facility] PLAN [Use for s.o.a.p. note free text] PROBLEM VISIT with CHRIS PORRAS DO 07/19/2022 Last Documented On 2 1:18PM ; [facility] Watch for signs/symptoms of infection [place] OBLE[place] VISIT with CHRIS PORRAS DO 07/19/2022 Last Documented On 2 1:18PM ; [facility] Ordered return to the clinic if condition worsens or new symptoms arise PROBLEM VISIT with JUAN [facility]LL[facility]GRAVE [facility] 07/25/2021 Last Documented On 1 11:12AM ; [facility] Ordered patient will call fo r appointment as needed PROBLEM VISIT with JUAN ORELLANAGRAVE [facility]- 07/19/2021 Last Documented On 1 4:30PM ; [facility] Ordered return to the clinic if condition worsens or new symptoms arise PROBLEM VISIT with JUAN CABRERA [facility]- 07/19/2021 Last Documented On 1 4:30PM ; [facility] Medication instruction PROBLEM VISIT with CHRIS PORRAS DO 07/11/2021 Last Documented On 1 4:14PM ; [facility] Ordered return to the clinic if condition worsens or new symptoms arise PROBLEM VISIT with CHRIS PORRAS DO 07/11/2021 Last Documented On 1 4:14PM ; [facility] PLAN [Use for s.o.a.p. note free text] PROBLEM VISIT with CHRIS PORRAS DO 07/11/2021 Last Documented On 1 4:14PM ; [facility] Watch for signs/symptoms of infection [place] O[place] VISIT with CHRIS PORRAS DO 07/11/2021 Last Documented On 1 4:14PM ; [facility] once calmed dowm more omt or pt, agrees PROBLEM VISIT with CHRIS PORRAS DO 03/27/2021 Last Documented On 1 8:47AM ; [facility] Ordered an X-ray PROBLEM VISIT with CHRIS DEWITT EFF DO 03/27/2021 Last Documented On 1 8:47AM ; [facility] Ordered prednisone PROBLEM VISIT with CHRIS LOBO DO 03/27/2021 Last Documented On 1 8:47AM ; [facility] Ordered vascular smooth musc le relaxants PROBLEM VISIT with CHRIS PORRAS DO 03/27/2021 Last Documented On 1 8:47AM ; [facility] Ordered follow-up visit as n eeded with an office visit if symptoms persist or worsen WALK-IN CLINIC SICK VISIT with EVELINE BORJAS [facility] 11/29/2019 Last Documented On 0 3:06PM ; [facility] Ordered patient to call if p roblem develops WALK-IN CLINIC SICK VISIT with EVELINE BORJAS [facility] 11/29/2019 Last Documented On 0 3:06PM ; [facility] Ordered referred to primary care physician WALK-IN CLINIC SICK VISIT with EVELINE BORJAS [facility] 11/29/2019 Last Documented On 0 3:06PM ; [facility] Ordered return to the clinic if condition worsens or new symptoms arise WALK-IN CLINIC SICK VISIT with EVELINE BORJAS [facility] 11/29/2019 Last Documented On 0 3:06PM ; [facility] Pt to use prescription as or dered. Purpose of and use of medication discussed. WALK-IN CLINIC SICK VISIT with TOAN FISH [facility] 09/02/2019 Last Documented On 9 4:01PM ; [facility] Continue current medication WALK-IN CLIN IC SICK VISIT with TOAN FISH [facility] 09/02/2019 Last Documented On 9 4:01PM ; [facility] Fluids and rest. Tylenol for pain SICK VISIT wit CHRIS PORRAS DO 04/13/2019 Last Documented On 9 8:51PM ; [facility] Ordered patient to call if daryn fajardo develops SICK VISIT with CHRIS PORRAS DO 04/13/2019 Last Documented On 9 8:51PM ; [facility] Ordered return to the clinic if condition worsens or new symptoms arise SICK VISIT with CHRIS PORRAS DO 04/13/2019 Last Documented On 9 8:51PM ; [facility] Patient education about anti biotics: need to finish even if feeling better SICK VISIT with CHRIS PORRAS DO 04/13/2019 Last Documented On 9 8:51PM ; [facility] Muscle relaxers 1/2 to 1 tab every six hours or just at bedtime. Do not drink or drive w/relaxers. Steroid arnaldo for the inflammation, start tomorrow. Return if not improving w/do an adjustment. Follow the constipation regimen. Mirilax, Mineral oil, stay hydrated PROBLEM VISIT with CHRIS PORRAS DO 02/13/2019 Last Documented On 9 7:39PM ; [facility] Medication instruction PROBLEM VISIT with CHRIS PORRAS DO 02/13/2019 Last Documented On 9 7:39PM ; [facility] Ordered patient to call if daryn cavanaughm develops PROBLEM VISIT with CHRIS PORRAS DO 02/13/2019 Last Documented On 9 7:39PM ; [facility] Ordered return to the clinic if condition worsens or new symptoms arise PROBLEM VISIT with CHRIS PORRAS DO 02/13/2019 Last Documented On 9 7:39PM ; [facility] Ordered nonsteroidal anti-inflammatory SICK VISI T with CHRIS PORRAS DO 07/23/2018 Last Documented On 8 8:56PM ; [facility] Medication instruction SICK VISIT with CHRIS MACKEY DO 06/10/2018 Last Documented On 8 9:09PM ; [facility] Ordered patient to call if daryn fajardo develops SICK VISIT with CHRIS PORRAS DO 06/10/2018 Last Documented On 8 9:09PM ; [facility] Ordered return to the clinic if condition worsens or new symptoms arise SICK VISIT with CHRIS PORRAS DO 06/10/2018 Last Documented On 8 9:09PM ; [facility] Patient education about anti biotics: need to finish even if feeling better SICK VISIT with CHRIS PORRAS DO 06/10/2018 Last Documented On 8 9:09PM ; [facility] Ordered Clinical summary pro vided to patient . Plan discussed and patient/parent/caregiver states understanding SICK VISIT with KUSH TOLBERT PA-C 07/12/2016 Last Documented On 6 3:05PM ; [facility] Ordered follow-up visit as n eeded with an office visit. Push fluids, hot steamy showers, vicks. Tylenol/motrin as needed. OTC Tylenol cold and sinus. Call sooner if symptoms worsen/persist beyond 1 week SICK VISIT with KUSH TOLBERT PA-C 07/12/2016 Last Documented On 6 3:05PM ; [facility] Ordered patient to call if daryn fajardo develops PROBLEM VISIT with CHRIS PORRAS DO 05/01/2016 Last Documented On 6 9:43AM ; [facility] Ordered return to the clinic if condition worsens or new symptoms arise PROBLEM VISIT with CHRIS PORRAS DO 05/01/2016 Last Documented On 6 9:43AM ; [facility] Stretches as demonstrated. A ntibiotics. WARM CLOTH TO AXILLARY AREA. DO NOT SHAVE FOR A FEW DAYS. LITTLE TO NO DEODARANT PROBLEM VISIT with CHRIS PORRAS DO 12/06/2015 Last Documented On 6 8:59PM ; [facility] Ordered patient to call if p afshanm develops PROBLEM VISIT with CHRIS PORRAS DO 12/06/2015 Last Documented On 6 8:59PM ; [facility] Ordered return to the clinic if condition worsens or new symptoms arise PROBLEM VISIT with CHRIS PORRAS DO 12/06/2015 Last Documented On 6 8:59PM ; [facility] Ordered patient to call if p afshanm develops SICK VISIT with CHRIS PORRAS DO 03/02/2015 Last Documented On 5 4:28PM ; [facility] Ordered return to the clinic if condition worsens or new symptoms arise SICK VISIT with CHRIS PORRAS DO 03/02/2015 Last Documented On 5 4:28PM ; [facility] We will obtain an x-ray at [facility] as patient cannot take off work [...] directed NEW PATIENT VISIT with NATHANIEL FRITZ [facility] 03/18/2014 Last Documented On 4 12:25PM ; [facility] Ordered nonsteroidal anti-inflammatory P ROBLEM VISIT with CHRIS Tammy VERN DO 04/28/2010 Last Documented On 0 9:49PM ; [facility] Ordered vascular smooth musc le relaxants PROBLEM VISIT with CHRIS Munoz VERN DO 04/28/2010 Last Documented On 0 9:49PM ; [facility] Referrals To Diagnosis Other [facility] - [address] [place] [address] - Last Documented On 0 3:53PM ; [facility] Home Visit Field Care Manager JING RODNEY MD - [facility] - [address] [place] [phone] - Gastro-esophageal reflux dis with esophagitis, without bleed Last Documented On 1 11:34AM ; [facility] Home Visit Field Care Manager [facility] - [address] [place] [address] Gastro-esophageal reflux dis with esophagitis, without bleed Note: FAX [phone] Last Documented On 3 4:06PM ; [facility] Instructions to patient Go to the emergency room if condition worsens Last Documented On 3 4:24PM ; [facility] Watch for signs/symptoms of infection Last Documented On 3 4:24PM ; [facility] Intervention and counseling on cessation of tobacco use Last Documented On 3 4:02PM ; [facility] Watch for signs/symptoms of infection Last Documented On 2 2:16PM ; [facility] Intervention and counseling on cessation of tobacco use Last Documented On 2 1:57PM ; [facility] Watch for signs/symptoms of infection Last Documented On 1 2:57PM ; [facility] Return to the clinic if cond ition worsens or new symptoms arise Last Documented On 1 4:46PM ; [facility] Go to the emergency room if condition worsens Last Documented On 1 4:46PM ; [facility] Return to the clinic if cond ition worsens or new symptoms arise Last Documented On 1 9:25AM ; [facility] Return to the clinic if cond ition worsens or new symptoms arise Last Documented On 1 9:30AM ; [facility] Go to the emergency room if condition worsens Last Documented On 1 9:25AM ; [facility] Go to the emergency room if condition worsens Last Documented On 1 9:30AM ; [facility] Go to the emergency room if condition worsens Last Documented On 0 3:05PM ; [facility] Watch for signs/symptoms of infection Last Documented On 0 3:05PM ; [facility] Watch for signs/symptoms of infection, return to the clinic if seen Last Documented On 0 3:05PM ; [facility] Return to the clinic if cond ition worsens or new symptoms arise Last Documented On 8 8:54PM ; [facility] Go to the emergency room if condition worsens Last Documented On 6 9:42AM ; [facility] Return to the clinic if cond ition worsens or new symptoms arise Last Documented On 6 8:58PM ; [facility] Go to the emergency room if condition worsens Last Documented On 6 8:58PM ; [facility] Go to the emergency room if condition worsens Last Documented On 6 8:59PM ; [facility] Go to the emergency room if condition worsens Last Documented On 5 4:27PM ; [facility] Return to the clinic if cond ition worsens or new symptoms arise Last Documented On 0 11:36AM ; [facility] Education and Decision Aids were provided during visit for: Patient education about anti biotics: need to finish even if feeling better Last Documented On 9 2:48PM ; [facility] Patient education about anti biotics: need to finish even if feeling better Last Documented On 8 9:25AM ; [facility] Assessments Includes: Assessments for all patient encounters Findings Encounter Date Arthralgias of multiple sites PROBLEM VISIT with CHRIS PORRAS DO 11/29/2022 Last Documented On 3 8:36PM ; [facility] Myalgia and myositis PROBLEM VISIT with CHRIS GREENFIELD DO 11/29/2022 Last Documented On 3 8:36PM ; [facility] Sciatica PROBLEM VISIT with CHRIS ANGULO DO 11/29/2022 Last Documented On 3 8:36PM ; [facility] Somatic dysfunction of lumbar region PROBLEM VIS IT with CRHIS PORRAS DO 11/29/2022 Last Documented On 3 8:36PM ; [facility] Somatic dysfunction of sacrum PROBLEM VISIT with CHRIS PORRAS DO 11/29/2022 Last Documented On 3 8:36PM ; [facility] Lumbago with right-side sciatica WALK IN PATIENT - ESTABLISHED PT with TORY Iyer [employer] STATISTICAL MACHINE SERVICER-C 11/15/2022 Last Documented On 3 2:16PM ; [facility] Sprain of the anterior tibio talar ligament of the right ankle PROBLEM VISIT with CHRIS PORRAS DO 07/19/2022 Last Documented On 2 1:18PM ; [facility] Sprain of the tibionavicular ligament of the right ankle PROBLEM VISIT with CHRIS PORRAS DO 07/19/2022 Last Documented On 2 1:18PM ; [facility] Acute maxillary sinusitis COVID SICK VIS IT- ESTABLISHED PATIENT with EVELINE BORJAS STATISTICAL MACHINE SERVICER-BC 02/16/2022 Last Documented On 2 6:50PM ; [facility] Acute bronchitis [J20.9 - Ac akhiok bronchitis, unspecified] COVID SICK VISIT- ESTABLISHED PATIENT with TORY Iyer [employer] STATISTICAL MACHINE SERVICER-C 01/19/2022 Last Documented On 2 4:09PM ; [facility] Abdominal pain PROBLEM VISIT with JUAN A JEFFERS RGRAVE PMHNP-BC STATISTICAL MACHINE SERVICER-BC 07/25/2021 Last Documented On 1 11:12AM ; [facility] Esophageal reflux PROBLEM VISIT with JUAN A RICK PMHNP-BC STATISTICAL MACHINE SERVICER-BC 07/25/2021 Last Documented On 1 11:12AM ; [facility] Nausea PROBLEM VISIT with JUAN A JEFFERS RGRAVE PMHNP-BC STATISTICAL MACHINE SERVICER-BC 07/25/2021 Last Documented On 1 11:12AM ; [facility] Abdominal pain PROBLEM VISIT with JUAN A JEFFERS RGRAVE PMHNP-BC STATISTICAL MACHINE SERVICER-BC 07/19/2021 Last Documented On 1 4:30PM ; [facility] Nausea PROBLEM VISIT with JUAN A JEFFERS RGRAVE PMHNP-BC STATISTICAL MACHINE SERVICER-BC 07/19/2021 Last Documented On 1 4:30PM ; [facility] Viral gastroenteritis PROBLEM VISIT with JUAN A RICK PMHNP-BC STATISTICAL MACHINE SERVICER-BC 07/19/2021 Last Documented On 1 4:30PM ; [facility] Contusion with intact skin s urface of midline of nose PROBLEM VISIT with CHRIS Munoz PALCHEFF DO 07/11/2021 Last Documented On 1 4:14PM ; [facility] Arthralgias of multiple sites PROBLEM VISIT with CHRIS Munoz PALCHEFF DO 03/27/2021 Last Documented On 1 8:47AM ; [facility] Low back pain PROBLEM VISIT with CHRIS Munoz PALCHE FF DO 03/27/2021 Last Documented On 1 8:47AM ; [facility] Lower backache PROBLEM VISIT with CHRIS L PALCHE FF DO 03/27/2021 Last Documented On 1 8:47AM ; [facility] Myalgia and myositis PROBLEM VISIT with CHRIS Munoz P ALCHEFF DO 03/27/2021 Last Documented On 1 8:47AM ; [facility] Somatic dysfunction of lumbar region PROBLEM VIS IT with CHRIS Munoz PALCHEFF DO 03/27/2021 Last Documented On 1 8:47AM ; [facility] Somatic dysfunction of thoracic region P ROBLEM VISIT with CHRIS Munoz PALCHEFF DO 03/27/2021 Last Documented On 1 8:47AM ; [facility] Arthralgias of multiple sites PROBLEM VISIT with CHRIS Munoz PALCHEFF DO 03/23/2021 Last Documented On 1 8:11PM ; [facility] Myalgia and myositis PROBLEM VISIT with CHRIS L P ALCHEFF DO 03/23/2021 Last Documented On 1 8:11PM ; [facility] Somatic dysfunction of cervical region P ROBLEM VISIT with CHRIS L PALCHEFF DO 03/23/2021 Last Documented On 1 8:11PM ; [facility] Somatic dysfunction of lumbar region PROBLEM VIS IT with CHRIS L PALCHEFF DO 03/23/2021 Last Documented On 1 8:11PM ; [facility] Somatic dysfunction of rib cage PROBLEM VISIT wi th CHRIS L PALCHEFF DO 03/23/2021 Last Documented On 1 8:11PM ; [facility] Somatic dysfunction of sacrum PROBLEM VISIT with CHRIS L PALCHEFF DO 03/23/2021 Last Documented On 1 8:11PM ; [facility] Somatic dysfunction of thoracic region P ROBLEM VISIT with CHRIS L PALCHEFF DO 03/23/2021 Last Documented On 1 8:11PM ; [facility] Acute pharyngitis WALK-IN CLINIC SICK VISIT with EVELINE BORJAS STATISTICAL MACHINE SERVICER-BC 11/29/2019 Last Documented On 0 3:06PM ; [facility] Group A streptococcus: B hem olytic pharyngitis WALK-IN CLINIC SICK VISIT with TOAN FISH STATISTICAL MACHINE SERVICER-C 09/02/2019 Last Documented On 9 4:01PM ; [facility] Pharyngitis, Strep SICK VISIT with CHRIS L PALCHE FF DO 04/13/2019 Last Documented On 9 8:51PM ; [facility] Referred earache SICK VISIT with CHRIS L PALCHEFF DO 04/13/2019 Last Documented On 9 8:51PM ; [facility] Somatic dysfunction of lumbar region PROBLEM VIS IT with CHRIS L PALCHEFF DO 02/13/2019 Last Documented On 9 7:39PM ; [facility] Allergic rhinitis due to pollen SICK VISIT with CHRIS L PALCHEFF DO 07/23/2018 Last Documented On 8 8:56PM ; [facility] Somatic dysfunction of rib cage SICK VISIT with CHRIS L PALCHEFF DO 07/23/2018 Last Documented On 8 8:56PM ; [facility] Somatic dysfunction of thoracic region SICK VISI T with CHRIS L PALCHEFF DO 07/23/2018 Last Documented On 8 8:56PM ; [facility] Viral pharyngitis SICK VISIT with CHRIS L PALCHEF F DO 07/23/2018 Last Documented On 8 8:56PM ; [facility] Abdominal pain/Colic SICK VISIT with CHRIS L PALC HEFF DO 06/10/2018 Last Documented On 8 9:09PM ; [facility] Acute pharyngitis SICK VISIT with CHRIS L PALCHEF F DO 06/10/2018 Last Documented On 8 9:09PM ; [facility] Acute sinusitis SICK VISIT with KUSH TOLBERT PA-C 07/12/2016 Last Documented On 6 3:05PM ; [facility] Flat warts PROBLEM VISIT with CHRIS L PALCHE FF DO 05/01/2016 Last Documented On 6 9:43AM ; [facility] Arthralgias in multiple sites PROBLEM VISIT with CHRIS L PALCHEFF DO 12/06/2015 Last Documented On 6 8:59PM ; [facility] Furuncle PROBLEM VISIT with CHRIS L PALCHE FF DO 12/06/2015 Last Documented On 6 8:59PM ; [facility] Somatic dysfunction of thoracic region P ROBLEM VISIT with CHRIS L PALCHEFF DO 12/06/2015 Last Documented On 6 8:59PM ; [facility] Acute pharyngitis SICK VISIT with CHRIS L PALCHEF F DO 03/02/2015 Last Documented On 5 4:28PM ; [facility] Sinusitis SICK VISIT with CHRIS L PALCHEFF DO 03/02/2015 Last Documented On 5 4:28PM ; [facility] Sore throat SICK VISIT with CHRIS L PALCHEFF DO 03/02/2015 Last Documented On 5 4:28PM ; [facility] Upper respiratory infection SICK VISIT with CHRIS L PALCHEFF DO 03/02/2015 Last Documented On 5 4:28PM ; [facility] Patellofemoral syndrome of the right kne e NEW PATIENT VISIT with NATHANIEL COTTRELL 03/18/2014 Last Documented On 4 12:25PM ; [facility] Arthralgias in multiple sites PROBLEM VISIT with CHRIS L PALCHEFF DO 04/28/2010 Last Documented On 0 9:49PM ; [facility] Diarrhea PROBLEM VISIT with CHRIS L PALCHE FF DO 04/28/2010 Last Documented On 0 9:49PM ; [facility] Dysmenorrhea PROBLEM VISIT with CHRIS L PALCHE FF DO 04/28/2010 Last Documented On 0 9:49PM ; [facility] Myalgia and myositis PROBLEM VISIT with CHRIS Tammy Morton ALCHEFF DO 04/28/2010 Last Documented On 0 9:49PM ; 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 Osteopathic lesions of the l umbar region PROBLEM VISIT with CHRIS Munoz PALCHEFF DO 04/28/2010 Last Documented On 0 9:49PM ; [facility] Osteopathic lesions of the rib cage PROBLEM VISI T with CHRIS L PALCHEFF DO 04/28/2010 Last Documented On 0 9:49PM ; [facility] Osteopathic lesions of the s acral region PROBLEM VISIT with CHRIS L PALCHEFF DO 04/28/2010 Last Documented On 0 9:49PM ; [facility] Osteopathic lesions of the t horacic region PROBLEM VISIT with CHRIS Munoz PALCHEFF DO 04/28/2010 Last Documented On 0 9:49PM ; [facility] Urethritis PROBLEM VISIT with CHRIS Munoz PALCHE FF DO 04/28/2010 Last Documented On 0 9:49PM ; [facility] Arthralgia PROBLEM VISIT with CHRIS Munoz PALCHE FF DO 12/27/2009 Last Documented On 0 3:26PM ; [facility] Sprain of the right first CMC joint PROBLEM VISI T with CHRIS Munoz PALCHEFF DO 12/27/2009 Last Documented On 0 3:26PM ; [facility] Tendonitis PROBLEM VISIT with CHRIS Munoz PALCHE FF DO 12/27/2009 Last Documented On 0 3:26PM ; [facility] Acute urinary retention GENERAL OFFICE VISIT wit h CHRIS YAOFF DO 11/09/2009 Last Documented On 0 2:32PM ; [facility] Overflow incontinence GENERAL OFFICE VISIT with CHRIS Munoz PALCHEFF DO 11/09/2009 Last Documented On 0 2:32PM ; [facility] Primary nocturnal enuresis GENERAL OFFICE VISIT with CHRIS Munoz PALCHEFF DO 11/09/2009 Last Documented On 0 2:32PM ; [facility] Instructions Includes: Instructions for all patient encounters Instructions to patient Go to the emergency room if condition worsens Last Documented On 3 4:24PM ; [facility] Watch for signs/symptoms of infection Last Documented On 3 4:24PM ; [facility] Intervention and counseling on cessation of tobacco use Last Documented On 3 4:02PM ; [facility] Watch for signs/symptoms of infection Last Documented On 2 2:16PM ; [facility] Intervention and counseling on cessation of tobacco use Last Documented On 2 1:57PM ; [facility] Watch for signs/symptoms of infection Last Documented On 1 2:57PM ; [facility] Return to the clinic if cond ition worsens or new symptoms arise Last Documented On 1 4:46PM ; [facility] Go to the emergency room if condition worsens Last Documented On 1 4:46PM ; [facility] Return to the clinic if cond ition worsens or new symptoms arise Last Documented On 1 9:25AM ; [facility] Return to the clinic if cond ition worsens or new symptoms arise Last Documented On 1 9:30AM ; [facility] Go to the emergency room if condition worsens Last Documented On 1 9:25AM ; [facility] Go to the emergency room if condition worsens Last Documented On 1 9:30AM ; [facility] Go to the emergency room if condition worsens Last Documented On 0 3:05PM ; [facility] Watch for signs/symptoms of infection Last Documented On 0 3:05PM ; [facility] Watch for signs/symptoms of infection, return to the clinic if seen Last Documented On 0 3:05PM ; [facility] Return to the clinic if cond ition worsens or new symptoms arise Last Documented On 8 8:54PM ; [facility] Go to the emergency room if condition worsens Last Documented On 6 9:42AM ; [facility] Return to the clinic if cond ition worsens or new symptoms arise Last Documented On 6 8:58PM ; [facility] Go to the emergency room if condition worsens Last Documented On 6 8:58PM ; [facility] Go to the emergency room if condition worsens Last Documented On 6 8:59PM ; [facility] Go to the emergency room if condition worsens Last Documented On 5 4:27PM ; [facility] Return to the clinic if cond ition worsens or new symptoms arise Last Documented On 0 11:36AM ; [facility] Education and Decision Aids were provided during visit for: Patient education about anti biotics: need to finish even if feeling better Last Documented On 9 2:48PM ; [facility] Patient education about anti biotics: need to finish even if feeling better Last Documented On 8 9:25AM ; [facility] Medical Equipment - Implanted Devices Includes: Current and historical Devices No Medical Equipment Recorded Medications Includes: Current and historical Medications Current Medications (continue as prescribed) Medrol 4 MG Oral Tablet Therapy Pack 11/29/2022 Provider: CHRIS PORRAS DO Diagnosis: Pain in unspecif ied joint as directed Last Documented On 11/29/2022 4:59PM By Neal Encinas ; [facility] Cyclobenzaprine HCl 10 MG Oral Tablet 11/15/2022 Provider: TORY ALVAREZ Diagnosis: Lumbago with sci atica, right side 1/2- 1 tablet po q8 hours pr n for back pain Last Documented On 3 2:16PM By Tory ALVAREZ ; [facility] Pantoprazole Sodium 40 MG Oral Tablet Delayed Release 09/27/2022 Provider: Diagnosis: Last Documented On 11/15/2022 2:05PM By Clover Slaughter MA ; [facility] Albuterol Sulfate HFA 108 (90 Base) MCG/ACT Inhalation Aerosol Solution 01/19/2022 Provider: TORY ALVAREZ Diagnosis: Acute bronchitis , unspecified as directed 2 puffs inhaled q4-6 hours prn Last Documented On 2 4:17PM By Tory ALVAREZ ; [facility] Omeprazole 20 MG Oral Capsule Delayed Release 07/25/2021 Provider: [facility] STATISTICAL MACHINE SERVIC[facility]-BC Diagnosis: Gastro-esophagea l reflux dis with esophagitis, without bleed 1 Capsule every morning Last Documented On 07/19/2022 1:56PM By Damaris THOMSON ; [facility] Norethin Seven-Eth Estrad-FE 1-20 MG-MCG Oral Tablet Provider: Diagnosis: Last Documented On 07/11/2021 2:25PM By Damaris Jordan Chris ; [facility] Past Medications on file predniSONE 20 MG Oral Tablet 11/15/2022 - 11/29/2022 Provider: TORY SANTIAGO STATISTICAL MACHINE SERVICER-C Diagnosis: Lumbago with sciatica, right side as directed 2 tab po qd x 3 then 1 tab po qd x 3 Last Documented On 11/29/2022 4:00PM By Damaris THOMSON ; [facility] Azithromycin 500 MG Oral Tablet 02/16/2022 - 07/19/2022 Provider: EVELINE BORJAS [facility]- Diagnosis: Acute maxillary sinusitis, unspecified One tablet daily Last Documented On 07/19/2022 1:56PM By Damaris THOMSON ; [facility] Medrol 4 MG Oral Tablet Therapy Pack 02/16/2022 - 07/19/2022 Provider: EVELINE BORJAS [facility]- Diagnosis: Pleurisy as directed Last Documented On 07/19/2022 1:56PM By Damaris THOMSON ; [facility] predniSONE 20 MG Oral Tablet 01/19/2022 - 02/16/2022 Provider: TORY SANTIAGO STATISTICAL MACHINE SERVICER-C Diagnosis: Acute bronchitis , unspecified as directed 2 tab po qd x 5 Last Documented On 02/16/2022 6:01PM By NICOLÁS BRYANT Chris ; [facility] Azithromycin 250 MG Oral Tablet 01/19/2022 - 02/16/2022 Provider: TORY SANTIAGO STATISTICAL MACHINE SERVICER-Lois Diagnosis: Acute bronchitis , unspecified as directed take 2 tab po qd for 1 day then take 1 tab po qd for 4 days Last Documented On 02/16/2022 6:01PM By NICOLÁS BRYANT Chris ; [facility] Zofran 4 MG Oral Tablet 07/19/2021 - 02/16/2022 Provider: JUAN VÁSQUEZ [facility]-BC STATISTICAL MACHINE SERVICER-BC Diagnosis: Viral intestinal infection, unspecified 1 every 4 - 6 hours as needed Last Documented On 02/16/2022 6:01PM By NICOLÁS THOMSON ; [facility] Chlorzoxazone 500 MG Oral Tablet 03/27/2021 - 07/19/2021 Provider: CHRIS PORRAS DO Diagnosis: Myalgia, unspeci fied site as directed 1/2 to 1 tab q 6 hours prn Last Documented On 07/19/2021 2:58PM By TRICIA THOMSON ; [facility] Medrol 4 MG Oral Tablet Therapy Pack 03/27/2021 - 07/11/2021 Provider: CHRIS PORRAS DO Diagnosis: Low back pain as directed Last Documented On 07/11/2021 2:24PM By Damaris THOMSON ; [facility] Chlorzoxazone 500 MG Oral Tablet 03/23/2021 - 07/19/2021 Provider: CHRIS PORRAS DO Diagnosis: Myalgia, other s ite as directed 1/2 to 1 tab q 6 hours prn Last Documented On 07/19/2021 2:58PM By TRICIA THOMSON ; [facility] Azithromycin 250 MG Oral Tablet 09/02/2019 - 03/23/2021 Provider: TOAN FISH STATISTICAL MACHINE SERVICER-C Diagnosis: Streptococcal pharyngitis as directed Take two tablets on day 1. Then, take one tablet on day 2-5 Last Documented On 03/23/2021 9:05AM By Crystal THOMSON ; [facility] Zithromax Z-Arnaldo 250MG Oral Tablet 04/13/2019 - 03/23/2021 Provider: CHRIS PORRAS DO Diagnosis: Streptococcal pharyngitis as directed Last Documented On 03/23/2021 9:05AM By Crystal THOMSON ; [facility] Chlorzoxazone 500MG Oral Tablet 02/13/2019 - 04/13/2019 [...] directed Last Documented On 04/13/2019 1:54PM By LAENNE THOMSNO ; [facility] Zithromax Z-Arnaldo 250MG Oral Tablet 06/10/2018 - 07/23/2018 Provider: CHRIS PORRAS DO Diagnosis: Acute pharyngiti s, unspecified as directed Last Documented On 07/23/2018 3:24PM By LEANNE THOMSON ; [facility] Zithromax Z-Arnaldo 250 MG Tablet 07/12/2016 - 06/10/2018 Provider: KUSH TOLBERT PA-C Diagnosis: Other acute sinu sitis Take as directed. Last Documented On 06/10/2018 9:11AM By LEANNE THOMSON ; [facility] Aldara 5 % Cream 05/02/2016 - 06/10/2018 Provider: CHRIS PORRAS DO Diagnosis: Other viral wart s apply to areas 2 times a wee k for 16 weeks. Leave on for 8 hrs, remove with mild soap and water. Wash hands before and after application Last Documented On 06/10/2018 9:11AM By LEANNE THOMSON ; [facility] Depo-Provera 150 MG/ML Suspension 05/01/2016 - 018 Provider: Diagnosis: Last Documented On 06/10/2018 9:11AM By LEANNE THOMSON ; [facility] Bactrim DS 800-160 MG Tablet 12/06/2015 - 05/01/2016 Provider: CHRIS PORRAS DO Diagnosis: Furuncle of trun k, unspecified One tablet twice a day Last Documented On 05/01/2016 3:16PM By TAMMY CRAWFORD CMA ; [facility] Zithromax Z-Arnaldo 250 MG Tablet 03/02/2015 - 12/06/2015 Provider: CHRIS PORRAS DO Diagnosis: ACUTE PHARYNGITI S as directed Last Documented On 12/06/2015 2:00PM By TRICIA THOMSON ; [facility] Mirena 20 MCG/24HR Intrauterine device 03/02/2015 - Provider: Diagnosis: Last Documented On 05/01/2016 3:22PM By TAMMY CRAWFORD CMA ; [facility] predniSONE 20 MG OR TABS 03/22/2014 - 12/06/2015 Provi oliverio: NATHANIEL Win [facility] Diagnosis: PATIENT IS TO START TOMORROW MORNING. SHE IS TO TAKE 3 (20MG) TABS DAILY X 5 DAYS THEN STOP. TAKE WITH FOOD. Last Documented On 12/06/2015 2:00PM By RTICIA THOMSON ; [facility] Parafon Forte DSC 500 MG OR TABS 04/28/2010 - 12/06/2015 Provider: CHRIS PORRAS DO Diagnosis: MYALGIA AND MYOS ITIS NOS PRN SPASM Last Documented On 12/06/2015 2:00PM By TRICIA THOMSON ; [facility] Bactrim DS 800-160 MG OR TABS 04/28/2010 - 12/06/2015 Provider: CHRIS PORRAS DO Diagnosis: URETHRITIS NOS Last Documented On 12/06/2015 2:00PM By TRICIA THOMSON ; [facility] Medrol (Arnaldo) 4 MG OR TABS 12/27/2009 - 12/06/2015 Provider: CHRIS PORRAS DO Diagnosis: SPRAIN CARPOMETA CARPAL Last Documented On 12/06/2015 2:00PM By TRICIA THOMSON ; [facility] Medications Administered Includes: Administered Medications in patient's chart No Administered Medications Recorded Results Includes: Results from 02/19/2024 through 02/18/2025 No Results Recorded For Specified Dates History of Present Illness History of Present Illness not supported for this document type No History of Present Illness Recorded Social History Description Last Updated Former smoker 11/29/2022 Last Documented On 3 8:36PM ; [facility] Tobacco non-user 11/29/2022 Last Documented On 3 8:36PM ; [facility] Smoking status : Never smoker 11/29/2019 Last Documented On 0 3:06PM ; [facility] Currently in school 04/27/2009 Last Documented On 9 12:46PM ; [facility] Lives with parents 04/27/2009 Last Documented On 9 12:46PM ; [facility] Medical History Includes: Medical History in patient's chart Description Last Updated LMP: 07/15/2022 pt not regular due to BC pills 07/19/2022 Last Documented On 2 1:18PM ; [facility] No recent change in medical history 06/22 Last Documented On 1 4:30PM ; [facility] Taking OTC pain medication /fever. Using Tylenol 11/29/2019 Last Documented On 0 3:06PM ; [facility] Taking OTC medications 09/02/2019 Last Documented On 9 4:01PM ; [facility] History of length at : 20 in 2008 Last Documented On 9 12:46PM ; [facility] Patient's weight: 5 lbs 14 oz 05/2009 Last Documented On 9 12:46PM ; [facility] Vaginal delivery 04/27/2009 Last Documented On 9 12:46PM ; [facility] Family History Includes: Family History in patient's chart Description Last Updated Family history of Cancer 07/19/2022 Last Documented On 2 1:18PM ; [facility] Review of Systems Review of Systems not [...] Patient Last Documented On 3 4:01PM ; [facility] COVID-19 Pfizer 2 08/10/2021 Left Arm Complete (Re ported) Patient Last Documented On 3 4:01PM ; [facility] Tdap (Boostrix) 1 09/22/2019 Left Deltoid Complete (Reported) Patient Last Documented On 3 4:01PM ; [facility] Allergies Includes: Active, inactive, and resolved Allergies Substance Type Reaction Onset Date Resolved Date Statu s Penicillins Allergy 04/27/2009 Active Last Documented On 3 4:01PM ; [facility] Insurance Includes: Active Insurance Policies Plan Name Member ID Group # Subscriber Relationship Effect thuan Dates 1 - [facility] [id number] [employer] Clinical Notes Includes: Signed Clinical Notes starting from 11/09/2022 No Clinical Notes Recorded
--- OUTSIDE RECORDS SUMMARY | 2025-02-18 08:25 | XMS_ITS ---
Care Plan - [facility] Created on: February 18, 2025 TASH CORRAL : 1990 Sex: Female Author Organization [facility] Address [address] [place] [address] Phone Care Team Providers Care Cotton Machine Operator Name Role Phone CHRIS PORRAS DO Primary Care Provider [phone]
--- OUTSIDE RECORDS SUMMARY | 2025-02-18 08:25 | XMS_ITS | Clinical Summary ---
Author Organization [facility] Address [address] [place] [address] Phone Care Team Providers Care Anthropologist Name Role Phone CHRIS CURTIS DO Primary Care Provider [phone] Reason for Visit and Chief Complaint The [...] - Last Documented On 12/02/2022 8:36PM ; [facility] - Go to the emergency room if condition worsens - Last Documented On 12/02/2022 8:36PM ; [facility] - Watch for signs/symptoms of infection - Last Documented On 12/02/2022 8:36PM ; [facility] - Medication instruction - Last Documented On 12/02/2022 8:36PM ; [facility] - Prednisone - Last Documented On 12/02/2022 8:36PM ; [facility] - Physical Therapy - Last Documented On 12/02/2022 8:36PM ; [facility] - Follow-up visit - Last Documented On 12/02/2022 8:36PM ; [facility] PLAN [Use for s.o.a.p. note free text]. - Last Documented On 12/02/2022 8:36PM ; [facility] She was prescribed with Medrol Dosepak Provided referral for physical therapy. She was advised to avoid lifting, bending, or twisting. - Last Documented On 12/02/2022 8:36PM ; [facility] Pending Tests Order Diagnosis Results Due Ordering Selene westfall In office procedures - *[facility] OMT 1-2 Areas Segmental and somatic dysfunction of lumbar region 12/13/22 CHRIS Tammy VERN DO Last Documented On 3 8:36PM ; [facility] Instructions to patient Go to the emergency room if condition worsens Last Documented On 3 4:24PM ; [facility] Watch for signs/symptoms of infection Last Documented On 3 4:24PM ; [facility] Intervention and counseling on cessation of tobacco use Last Documented On 3 4:02PM ; [facility] Assessments Includes: Assessments from this encounter Findings - Arthralgias of multiple sites [M25.50 - Pain in unspecified joint] - Last Documented On 12/02/2022 8:36PM ; [facility] - Sciatica [M54.30 - Sciatica, unspecified side] - Last Documented On 12/02/2022 8:36PM ; [facility] - Myalgia and myositis [M79.10 - Myalgia, unspecified site] - Last Documented On 12/02/2022 8:36PM ; [facility] - Somatic dysfunction of lumbar region [M99.03 - Segmental and somatic dysfunction of lumbar region] - Last Documented On 12/02/2022 8:36PM ; [facility] - Somatic dysfunction of sacrum [M99.04 - Segmental and somatic dysfunction of sacral region] - Last Documented On 12/02/2022 8:36PM ; [facility] Instructions Includes: Instructions from this encounter Instructions to patient Go to the emergency room if condition worsens Last Documented On 3 4:24PM ; [facility] Watch for signs/symptoms of infection Last Documented On 3 4:24PM ; [facility] Intervention and counseling on cessation of tobacco use Last Documented On 3 4:02PM ; [facility] Medical Equipment - Implanted Devices Includes: Current Devices No Medical Equipment Recorded Medications Includes: Medications discussed during this encounter and other current Medications Discontinued / Stopped on this date TORY ALVAREZ on 11/15/2022 predniSONE 20 MG Oral Tablet Provider: TORY ALVAREZ Diagnosis: Lumbago with sci atica, right side Last Documented On 11/29/2022 4:00PM By Damaris THOMSON ; [facility] New / Renewed during this visit CHRIS CURTIS DO on 11/29/2022 Medrol 4 MG Oral Tablet Therapy Pack Provider: CHRIS CURTIS DO 6 day supply: 1 each, 0 refills Diagnosis: Pain in unspecified joint as directed Pharmacy: [facility]bo[facility]) - [address] , [facility], [phone] - Last Documented On 11/29/2022 4:59PM By Neal Encinas ; [facility] Current Medications (continue as prescribed) Cyclobenzaprine HCl 10 MG Oral Tablet 11/15/2022 Provider: TORY ALVAREZ Diagnosis: Lumbago with sci atica, right side 1/2- 1 tablet po q8 hours pr n for back pain Last Documented On 3 2:16PM By Tory ALVAREZ ; [facility] Pantoprazole Sodium 40 MG Oral Tablet Delayed Release 09/27/2022 Provider: Diagnosis: Last Documented On 11/15/2022 2:05PM By Clover Slaughter MA ; [facility] Albuterol Sulfate HFA 108 (90 Base) MCG/ACT Inhalation Aerosol Solution 01/19/2022 Provider: TORY ALVAREZ Diagnosis: Acute bronchitis , unspecified as directed 2 puffs inhaled q4-6 hours prn Last Documented On 2 4:17PM By Tory ALVAREZ ; [facility] Omeprazole 20 MG Oral Capsule Delayed Release 07/25/2021 Provider: JUAN VÁSQUEZ PMHNP-BC MARKETING TEACHER-BC Diagnosis: Gastro-esophagea l reflux dis with esophagitis, without bleed 1 Capsule every morning Last Documented On 07/19/2022 1:56PM By Damaris THOMSON ; [facility] Norethin Seven-Eth Estrad-FE 1-20 MG-MCG Oral Tablet Provider: Diagnosis: Last Documented On 07/11/2021 2:25PM By Damaris THOMSON ; [facility] Medications Administered Includes: Administered Medications from [...] 98 Last Documented: On 11/29/2022 4:05PM ; [facility] Results Includes: Results discussed [...] 11/29/2022 Last Documented On 3 8:36PM ; [facility] Tobacco non-user 11/29/2022 Last Documented On 3 8:36PM ; [facility] Smoking status : Never smoker 11/29/2019 Last Documented On 3 4:01PM ; [facility] Currently in school 04/27/2009 Last Documented On 3 4:01PM ; [facility] Lives with parents 04/27/2009 Last Documented On 3 4:01PM ; [facility] Procedures and Surgical History Includes: Procedures from this encounter Procedures Code Diagnosis Performing Provider Service L ocation Service Date plan of care reviewed and agreed to Last Documented On 3 4:24PM ; [facility] plan of care reviewed and agreed to by t he patient Last Documented On 3 4:24PM ; [facility] no high velocity / low ampli tude osteopathic manipulative treatment [employer] Last Documented On 3 4:25PM ; [facility] muscle energy therapy [employer] Last Documented On 3 4:25PM ; [facility] intervention and counseling on cessation of toba accounts receivable collector use 4000F Last Documented On 3 4:02PM ; [facility] use of tobacco assessment performed 1000F Last Documented On 3 4:02PM ; [facility] review of medications documented 1160F Last Documented On 3 4:02PM ; [facility] Pt encouraged to be compliant with curre nt treatment Last Documented On 3 4:24PM ; [facility] OMT - Soft tissue/muscle stretching tech niques [employer] Last Documented On 3 4:25PM ; [facility] Medical History Includes: Medical History addressed during this encounter Description Last Updated LMP: 07/15/2022 pt not regular due to BC pills 07/19/2022 Last Documented On 3 4:01PM ; [facility] No recent change in medical history 06/22 Last Documented On 3 4:01PM ; [facility] Taking OTC pain medication /fever. Using Tylenol 11/29/2019 Last Documented On 3 4:01PM ; [facility] Taking OTC medications 09/02/2019 Last Documented On 3 4:01PM ; [facility] History of length at : 20 in 2008 Last Documented On 3 4:01PM ; [facility] Patient's weight: 5 lbs 14 oz 05/2009 Last Documented On 3 4:01PM ; [facility] Vaginal delivery 04/27/2009 Last Documented On 3 4:01PM ; [facility] Family History Includes: Family History addressed during this encounter Description Last Updated Family history of Cancer 07/19/2022 Last Documented On 3 4:01PM ; [facility] Review of Systems Includes: Review of [...] Patient Last Documented On 3 4:01PM ; [facility] COVID-19 Pfizer 2 08/10/2021 Left Arm Complete (Re ported) Patient Last Documented On 3 4:01PM ; [facility] Tdap (Boostrix) 1 09/22/2019 Left Deltoid Complete (Reported) Patient Last Documented On 3 4:01PM ; [facility] Allergies Includes: Active Allergies Substance Type Reaction Onset Date Resolved Date Statu s Penicillins Allergy 04/27/2009 Active Last Documented On 3 4:01PM ; [facility] Encounters Encounter Provider Location Date Check-In Time Check-Out Time Diagnosis PROBLEM VISIT CHRIS CURTIS [facility] 11/29/19 23 3:58PM 4:24PM Myalgia and Myositis,Sciat ica,Arthralgia s Multiple Sites,Somatic Dysfunction of Lumbar Region,Somatic Dysfunction of Sacrum Insurance Includes: Active Insurance Policies Plan Name Member ID Group # Subscriber Relationship Effect thuan Dates 1 - [facility] [id number] [employer] Clinical Notes Includes: Clinical Notes from this encounter * Progress note Date Encounter Last Documented by 11/29/2022 PROBLEM VISIT Last documented on 12/02/2022; 8:36 PM, CHRIS CURTIS DO; [facility] Active Problems & Conditions - [...] OTC pain medication /fever. Using Tylenol and sxsx-sbo-mocvcey medications. : Vaginal delivery. Pediatric: Patient's weight: [...]
--- OUTSIDE RECORDS SUMMARY | 2025-02-18 08:26 | XMS_ITS | Clinical Summary ---
Author Organization [facility] Address [address] [place] [address] Phone Care Team Providers Care Pre School Teacher Name Role Phone CHRIS PORRAS DO Primary Care Provider [phone] Reason for Visit and Chief Complaint The [...] - Last Documented On 07/21/2022 1:18PM ; [facility] - Watch for signs/symptoms of infection - Last Documented On 07/21/2022 1:18PM ; [facility] - Medication instruction - Last Documented On 07/21/2022 1:18PM ; [facility] - Continue current medication - Last Documented On 07/21/2022 1:18PM ; [facility] - Follow-up visit - Last Documented On 07/21/2022 1:18PM ; [facility] PLAN [Use for s.o.a.p. [...] - Last Documented On 07/21/2022 1:18PM ; [facility] Instructions to patient Watch for signs/symptoms of infection Last Documented On 2 2:16PM ; [facility] Intervention and counseling on cessation of tobacco use Last Documented On 2 1:57PM ; [facility] Assessments Includes: Assessments from this encounter Findings - Sprain of the anterior tibiotalar ligament of the right ankle [S93.421A - Sprain of deltoid ligament of right ankle, initial encounter] - Last Documented On 07/21/2022 1:18PM ; [facility] - Sprain of the tibionavicular ligament of the right ankle [S93.421A - Sprain of deltoid ligament of right ankle, initial encounter] - Last Documented On 07/21/2022 1:18PM ; [facility] Instructions Includes: Instructions from this encounter Instructions to patient Watch for signs/symptoms of infection Last Documented On 2 2:16PM ; [facility] Intervention and counseling on cessation of tobacco use Last Documented On 2 1:57PM ; [facility] Medical Equipment - Implanted Devices Includes: Current Devices No Medical Equipment Recorded Medications Includes: Medications discussed during this encounter and other current Medications Discontinued / Stopped on this date EVELINE ZACARIAS on 02/16/2022 Azithromycin 500 MG Oral Tablet Provider: EVELINE ZACARIAS Diagnosis: Acute maxillary sinusitis, unspecified Last Documented On 07/19/2022 1:56PM By Damaris THOMSON ; [facility] Medrol 4 MG Oral Tablet Therapy Pack Prov ider: EVELINE ZACARIAS Diagnosis: Pleurisy Last Documented On 07/19/2022 1:56PM By Damaris THOMSON ; [facility] Current Medications (continue as prescribed) Medrol 4 MG Oral Tablet Therapy Pack 11/29/2022 Provider: CHRIS PORRAS DO Diagnosis: Pain in unspecif ied joint as directed Last Documented On 11/29/2022 4:59PM By Neal Encinas ; [facility] Cyclobenzaprine HCl 10 MG Oral Tablet 11/15/2022 Provider: TORY ALVAREZ Diagnosis: Lumbago with sci atica, right side 1/2- 1 tablet po q8 hours pr n for back pain Last Documented On 2:16PM By Tory ALVAREZ ; [facility] Pantoprazole Sodium 40 MG Oral Tablet Delayed Release 09/27/2022 Provider: Diagnosis: Last Documented On 11/15/2022 2:05PM By Clover Slaughter MA ; [facility] Albuterol Sulfate HFA 108 (90 Base) MCG/ACT Inhalation Aerosol Solution 01/19/2022 Provider: TORY ALVAREZ Diagnosis: Acute bronchitis , unspecified as directed 2 puffs inhaled q4-6 hours prn Last Documented On 4:17PM By Tory ALVAREZ ; [facility] Omeprazole 20 MG Oral Capsule Delayed Release 07/25/2021 Provider: JUAN VÁSUQEZ PMPCarlaBC MOLD SWABBER-BC Diagnosis: Gastro-esophagea l reflux dis with esophagitis, without bleed 1 Capsule every morning Last Documented On 07/19/2022 1:56PM By Damaris THOMSON ; [facility] Norethin Seven-Eth Estrad-FE 1-20 MG-MCG Oral Tablet Provider: Diagnosis: Last Documented On 07/11/2021 2:25PM By Damaris THOMSON ; [facility] Medications Administered Includes: Administered Medications from this [...] 98 Last Documented: On 07/19/2022 1:59PM ; [facility] Results Includes: Results discussed during this encounter [...] 11/29/2022 Last Documented On 2 1:56PM ; [facility] Current smoker 11/15/2022 Last Documented On 2 1:56PM ; [facility] Current nonsmoker 03/23/2021 Last Documented On 2 1:56PM ; [facility] Smoking status : Never smoker 11/29/2019 Last Documented On 2 1:56PM ; [facility] Currently in school 04/27/2009 Last Documented On 2 1:56PM ; [facility] Lives with parents 04/27/2009 Last Documented On 2 1:56PM ; [facility] Procedures and Surgical History Includes: Procedures from this encounter Procedures Code Diagnosis Performing Provider Service L ocation Service Date plan of care reviewed and agreed to Last Documented On 2 2:16PM ; [facility] plan of care reviewed and agreed to by t he patient Last Documented On 2 2:16PM ; [facility] intervention and counseling on cessation of toba account services representative use 4000F Last Documented On 2 1:57PM ; [facility] use of tobacco assessment performed 1000F Last Documented On 2 1:57PM ; [facility] standardized depression screening: negative for symptoms 3351F Last Documented On 2 1:56PM ; [facility] review of medications documented 1160F Last Documented On 2 1:57PM ; [facility] assessment of suicide risk performed Last Documented On 2 1:56PM ; [facility] screening for adult depression: impressi on and score 0 Last Documented On 2 1:56PM ; [facility] Pt encouraged to be compliant with curre nt treatment Last Documented On 2 2:16PM ; [facility] Medical History Includes: Medical History addressed during this encounter Description Last Updated LMP: 07/15/2022 pt not regular due to BC pills 07/19/2022 Last Documented On 2 1:18PM ; [facility] No Contact with and (Suspected) exposure to COVID-19 02/16/2022 Last Documented On 2 1:56PM ; [facility] No fall 02/16/2022 Last Documented On 2 1:56PM ; [facility] No recent change in medical history 06/22 Last Documented On 2 1:56PM ; [facility] Taking OTC pain medication /fever. Using Tylenol 11/29/2019 Last Documented On 2 1:56PM ; [facility] No exposure to a contagious disease 08/21 Last Documented On 2 1:56PM ; [facility] Taking OTC medications 09/02/2019 Last Documented On 2 1:56PM ; [facility] History of length at : 20 in 2008 Last Documented On 2 1:56PM ; [facility] Patient's weight: 5 lbs 14 oz 05/2009 Last Documented On 2 1:56PM ; [facility] Vaginal delivery 04/27/2009 Last Documented On 2 1:56PM ; [facility] Family History Includes: Family History addressed during this encounter Description Last Updated Family history of Cancer 07/19/2022 Last Documented On 2 1:18PM ; [facility] Review of Systems Includes: Review of Systems [...] Active Last Documented On 3 4:01PM ; [facility] Encounters Encounter Provider Location Date Check-In Time Check-Out Time Diagnosis PROBLEM VISIT CHRIS PORRAS [facility] 022 1:44PM 2:11PM Ankle Sprain Anterior Tibiotalar Ligament Right,Ankle Sprain Tibionavicular Ligament Right Insurance Includes: Active Insurance Policies Plan Name Member ID Group # Subscriber Relationship Effect thuan Dates 1 - [facility] [id number] [employer] Clinical Notes Includes: Clinical Notes from this encounter No Clinical Notes Recorded
[2025-02-18 08:31] VITALS: BP 120/71; PULSE 87; RESP 16; TEMP 36.4; O2SAT 100
--- NOTE | 2025-02-18 08:47 | ED.UPPEXIN ---
HPI - Extremity Injury (Upper) General Chief Complaint: Extremity Injury, Upper Stated Complaint: Finger Injury Time Seen by Provider: 02/18/25 08:40 Source: patient and RN notes reviewed Mode of arrival: ambulatory Limitations: no limitations History of Present Illness HPI narrative: 34-year-old female presents Express Care complaining of a left index finger injury. Patient said 2 days ago her child pole on her index finger and pinky like a ?wish bone? and she heard a pop in her left index finger followed by pain. Patient denies any swelling, bruising, or redness to her finger. Patient says he has a hard time bending her index finger due to the pain. She denies any injury to her pinky. Patient has been taking her prescribed meloxicam along with Tylenol for pain with some relief. Patient rates the pain as 7 of 10. Patient has not taken anything today for pain. Patient has also been using ice with some relief. Related Data Home Medications ?Medication ?Instructions ?Recorded ?Confirmed ?Last Taken ?Type norethindrone 1 mg-ethinyl See Rx Instructions .Route .COMPLEX 08/28/23 08/28/23 Unknown History estradiol 20 mcg (24)-iron 75 mg (4) tablet (Ria 24 Fe) sertraline 25 mg tablet 25 mg PO DAILY 08/28/23 08/28/23 Unknown History duloxetine 60 mg capsule,delayed mg PO 02/18/25 Unknown History release meloxicam 15 mg tablet mg 02/18/25 Unknown History Allergies Allergy/AdvReac Type Severity Reaction Status Date / Time Penicillins Allergy Severe Anaphylactic Verified 02/18/25 08:36 Shock Review of Systems Review of Systems: CONSTITUTIONAL: Denies fever, chills, or sweats. EYES: Denies visual changes, redness, or discharge. ENT: Denies rhinorrhea, congestion, sore throat, or otalgia. CARDIOVASCULAR: Denies chest pain, palpitations, or edema. RESPIRATORY: Denies cough or dyspnea. GASTROINTESTINAL: Denies abdominal pain, nausea, vomiting, or diarrhea. GENITOURINARY: Denies dysuria or hematuria. SKIN: Denies rash or itching. MUSCULOSKELETAL: Denies back pain, joint pain, or myalgia. Positive for finger injury. NEUROLOGIC: Denies headache, numbness, or weakness. PSYCHIATRIC: Denies anxiety or depression. All other systems reviewed are negative, except as documented in HPI. [facility] Past Medical History Medical History Depression Surgical History Surgical History History of cholecystectomy Social History Social History Smoking status: Current every day smoker Comments At the time of my signature, I reviewed and agree with the nursing past medical, surgical, social, and family history. There is no relevant family history pertinent to the patient complaint. Exam Narrative: GENERAL: This is a well-nourished, well-developed adult, in no apparent distress. They are non ill-appearing, nontoxic appearing. HEAD: normocephalic, atraumatic. EYES: Sclera clear/white. Conjunctiva normal. Vision is grossly intact. Extraocular movements intact EARS: External ears normal Hearing grossly intact. NOSE: External nose normal THROAT: Mucous membranes moist NECK: Normal range of motion CARDIOVASCULAR: Regular rate and rhythm without murmurs, gallops, or rubs. RESPIRATORY: Respiratory rate normal, respiratory effort nonlabored, no respiratory distress SKIN: warm, Dry, intact with no suspicious lesions or rash, good texture and turgor. NEURO: awake, alert, and oriented to person, place and time. There were no obvious focal neurologic abnormalities. EXTREMITIES: Left hand: No obvious swelling, deformity, injury, redness, bruising. Radial pulse 2 +and palpable. Left index finger: Limited range of motion due to pain. Bony tenderness to palpation to the proximal index finger distal to the PIP. Patient is able to move her left index finger against resistance at the DIP, PIP, and MCP. Patient can make an okay sign, thumbs-up, make a fist with her hand. Cannot fully flex her left index finger due to pain. Patient able to fully extend her left index finger. Capillary refill less than 2 seconds. Neurovascular status is intact distal to the injury. Normal sensation. Course Course Emergency Course: Portions of this record may have been created with voice recognition software Level of Care: Express Care Visit Vital Signs Vital signs: Vital Signs Temperature 97.5 F L 02/18/25 08:31 Pulse Rate 87 02/18/25 08:31 Respiratory Rate 16 02/18/25 08:31 Blood Pressure 120/71 02/18/25 08:31 Pulse Oximetry 100 02/18/25 08:31 Oxygen Delivery Room Air 02/18/25 08:31 Temperature 97.5 F L 02/18/25 08:31 Pulse Rate 87 02/18/25 08:31 Respiratory Rate 16 02/18/25 08:31 Blood Pressure 120/71 02/18/25 08:31 Pulse Oximetry 100 02/18/25 08:31 Oxygen Delivery Room Air 02/18/25 08:31 Reviewed Procedures Orthopedic Splinting/Casting Injury #1: Splinting/Casting Date: 02/18/25 Splinting/Casting Time: 09:26 Side: left Upper Extremity Injury Location: finger (Left index) Pre-Formed: metal foam finger splint Pre-Procedure Neuro Vascular Exam: normal Post-Procedure Neuro Vascular Exam: normal MDM - Extremity Injury (Upper) MDM Narrative Medical decision making narrative: X-ray negative for any acute findings or fractures. Patient given her mental finger splint for comfort. Discussed physical exam findings. Advised supportive measures and signs/symptoms to go to the ER. Pt is appropriate for outpt treatment and f/u. Differential Diagnosis Differential diagnosis: Likely finger sprain, dislocation of finger and other (Finger fracture) Imaging Data Radiologist's impression: ITS Impressions Finger X-Ray 02/18/25 09:10 IMPRESSION: 1. Negative left second digit radiographs. Critical Care Time Critical Care Time Critical Care Time: No Discharge Plan Discharge Clinical Impression: Finger sprain Qualifiers: Encounter type: initial encounter Finger: index finger Sprain of finger site: unspecified site Laterality: left Qualified Code(s): S63.611A - Unspecified sprain of left index finger, initial encounter Patient Disposition: Home Condition: Stable Instructions: Finger Sprain (ED) Additional Instructions: Your x-ray was negative for any fractures or acute findings Apply ice 15-20 minute intervals several times a day You may wear metal finger splint for comfort. Take her meloxicam as directed, alternate with Tylenol 1000mg every 8 hours as needed Follow up with your primary care provider as needed in 1-2 weeks Patient Language: [place] Prescriptions: No Action sertraline 25 mg tablet 25 mg PO DAILY Ria 24 Fe 1 mg-20 mcg (24)/75 mg (4) tablet See Rx Instructions .ROUTE .COMPLEX Rx Instructions: as prescribed meloxicam 15 mg tablet duloxetine 60 mg capsule,delayed release(DR/EC) PO Follow-up/Referrals: Carl,Tati Leroy [Primary Care Provider] - Time of Disposition: 09:16
== END 2025-02-18 09:20 | disposition home or self-care (01) ==
PROVIDERS: PCP Nurse Practitioner
DX: S63.611A Unspecified sprain of left index finger, initial encounter (principal); F17.200 Nicotine dependence, unspecified, uncomplicated; X58.XXXA Exposure to other specified factors, initial encounter
CPT/HCPCS: 29130; 73140; 99213; G0463